=== PATIENT | female | born 1955 | race Hispanic/Latino ===

== ENCOUNTER 2016-05-28 16:57 | Observation (INO) | payer BC ==
[2016-05-28] MEDS ORDERED: Dextrose 50% SYRINGE Inj (50 ml) ONE (16:58)
[2016-05-28] MEDS ORDERED: Dextrose 50% SYRINGE Inj (50 ml) IVP STA ×2 (17:00→18:08)
--- NOTE | 2016-05-28 17:16 | ED PDOC ---
Arrival/HPI - General Time Seen by Provider: 05/28/16 16:58 Historian: EMS EM Caveat: Altered Mental Status - History of Present Illness Narrative History of Present Illness (Text): 05/28/16 16:58 A 60 year old female, whose past medical history includes hypertension and diabetes, is brought into the emergency department via EMS for altered mental status. EMS states family reported the patient appeared more confused. EMS checked to patient blood sugar at patient house and it was normal so no dextrose was given. EMS reports patient had a seizure en route to the emergency department. On arrival of the patient blood sugar was checked here and it was found to be 40 so an amp of Dextrose 50% was given. HPI and ROS limited due to patient altered mental status. There are no reported fever or other complaints. PMD: Dr. Truong Past Medical History - Provider Review Nursing Documentation Reviewed: Yes - Infectious Disease Hx of Infectious Diseases: C.diff - Tetanus Immunization Tetanus Immunization: Unknown - Cardiac Hx Cardiac Disorders: Yes Hx Hypertension: Yes - Pulmonary Hx Respiratory Disorders: No (SMOKING HISTORY HALF A PK/DAY) - Neurological Hx Neurological Disorder: No - HEENT Hx HEENT Disorder: No (WEARS RX GLASSES) - Endocrine/Metabolic Hx Endocrine Disorders: Yes Hx Diabetes Mellitus Type 2: Yes Hx Hypothyroidism: Yes - Hematological/Oncological Hx Blood Disorders: No - Musculoskeletal/Rheumatological Hx Musculoskeletal Disorders: Yes (PILONIDAL CYST REMOVED) - Gastrointestinal Hx Gastrointestinal Disorders: (PILONIDAL CYST REMOVED) - Genitourinary/Gynecological Hx Genitourinary Disorders: Yes (CAESEREAN SECTION) - Psychiatric Hx Emotional Abuse: No Hx Physical Abuse: No Hx Substance Use: No - Surgical History Hx Section: Yes (still born) - Anesthesia Hx Anesthesia Reactions: No Hx Malignant Hyperthermia: No - Suicidal Assessment Feels Threatened In Home Enviroment: No Family/Social History - Physician Review Nursing Documentation Reviewed: Yes Family/Social History: Unknown Family HX Smoking Status: Former Smoker Hx Alcohol Use: No Hx Substance Use: No Allergies/Home Meds Allergies/Adverse Reactions: Allergies No Known Allergies Allergy (Verified 11/07/12 09:51) Home Medications: Home Meds Medication Instructions Recorded Confirmed Alprazolam 0.5 mg PO HS PRN 11/07/12 03/16/14 Carvedilol 3.125 mg PO BID 11/07/12 03/16/14 Clopidogrel Hydrogen Sulfate 75 mg PO DAILY 11/07/12 03/16/14 [Plavix] Ezetimibe/Simvastatin [Vytorin 10 1 tab PO DAILY 11/07/12 03/16/14 mg-40 mg] Insulin Pump 0 units XX DAILY 11/07/12 03/16/14 Levothyroxine [Synthroid] 125 mcg PO DAILY 11/07/12 03/16/14 Losartan [Cozaar] 25 mg PO DAILY 11/07/12 03/16/14 Pregabalin [Lyrica] 75 mg PO Q8 11/07/12 03/16/14 Sertraline HCl [Sertraline] 50 mg PO DAILY 11/07/12 03/16/14 Temazepam 30 mg PO HS 11/07/12 03/16/14 Famotidine [Pepcid] 20 mg PO DAILY 03/16/14 03/16/14 Review of Systems - Review of Systems Systems not reviewed;Unavailable: Altered Mental Status Physical Exam Vital Signs Reviewed: Yes Vital Signs Temp Pulse Resp BP Pulse Ox 05/28/16 19:01 74 18 146/55 L 100 05/28/16 17:00 97.8 F 80 18 155/95 H 94 L Temperature: Afebrile Blood Pressure: Hypertensive Pulse: Regular Respiratory Rate: Normal Appearance: Positive for: Non-Toxic Pain Distress: None Mental Status: No: Agitated, Lethargic, Comatose Finger Stick Blood Glucose: 40 Medical Decision Making ED Course and Treatment: 05/28/16 16:58 Impression: A 60 year old female with altered mental status. Differential Diagnosis include but are not limited to: hypoglycemia Plan: -- EKG -- Head CT -- Chest X-ray -- Labs -- Urinalysis -- Dextrose 50% -- Reassess and disposition Prior Visits: Notes and results from previous visits were reviewed. The patient last presented to the emergency department on 03/16/14 for evaluation of hypoglycemia. Progress Notes: EKG: Ordered, reviewed, and independently interpreted the EKG. Rate : 78 BPM Rhythm : NSR Interpretation : No ST/T changes, normal axis, normal intervals. 05/28/16 17:[address]: Creator : Jass Bell MD COMPARISON: None available. FINDINGS: HEMORRHAGE: No intracranial hemorrhage. BRAIN: No mass effect or edema. No atrophy or chronic microvascular ischemic changes. VENTRICLES: Unremarkable. No hydrocephalus. CALVARIUM: Unremarkable. PARANASAL SINUSES: Unremarkable as visualized. No significant inflammatory changes. MASTOID AIR CELLS: Unremarkable as visualized. No inflammatory changes. OTHER FINDINGS: None. IMPRESSION: Normal CT of the Head. 05/28/16 18:15 Patient with persistent hypoglycemia, put on a drip. Case discussed with Dr. Truong who accepts patient to his service. 05/28/16 19:23 pt with persistent hypoglycemia, initial bgm 40, repeat 55 s/p initial dextrose. repeat dextrose given,d5 initiated. - Lab Interpretations Lab Results: 05/28/16 17:00 05/28/16 17:00 Lab Results 05/28/16 17:00: WBC 11.9 H D, RBC 4.63, Hgb 12.8, Hct 38.4, MCV 82.9, MCH 27.6, MCHC 33.3, RDW 15.0 H, Plt Count 386, MPV 9.9, Neutrophils % (Manual) 31 L, Lymphocytes % (Manual) 47 H, Atypical Lymphs % 6 H, Monocytes % (Manual) 13 H, Eosinophils % (Manual) 1, Basophils % (Manual) 2 H, PT 10.4, INR 0.96, APTT 29.7 , Sodium 135, Potassium 3.4 L, Chloride 99, Carbon Dioxide 20 L, Anion Gap 19, BUN 9, Creatinine 0.7, Est GFR ( Amer) > 60, Est GFR (Non-Af Amer) > 60, Random Glucose 41 L* D, Calcium 8.9, Magnesium 1.9, Total Bilirubin 0.4, AST 22 , ALT 24, Alkaline Phosphatase 107, Lactate Dehydrogenase 525, Total Creatine Kinase 104, Troponin I < 0.01, Total Protein 8.4 H, Albumin 4.5, Globulin 3.9, Albumin/Globulin Ratio 1.2 I have reviewed the lab results: Yes - RAD Interpretation Radiology Orders: 05/28/16 17:00 HEAD W/O CONTRAST [CT] Stat CHEST ONE VIEW [RAD] Stat - Medication Orders Current Medication Orders: Albuterol/Ipratropium (Duoneb 3 Mg/0.5 Mg (3 Ml) Ud) 3 ml IH [id number] PRN PRN Reason: Shortness of Breath Alprazolam (Xanax) 0.5 mg PO HS PRN PRN Reason: Anxiety Carvedilol (Coreg) 3.125 mg PO BID ERIKA Clopidogrel Bisulfate (Plavix) 75 mg PO DAILY ERIKA Famotidine (Pepcid) 20 mg PO DAILY ERIKA Dextrose/Sodium Chloride (Dextrose 5%/0.45% Ns 1000 Ml) 1,000 mls @ 125 mls/hr IV .Q8H [facility] Last Admin: 05/28/16 18:30 Dose: 125 MLS/HR eMAR Start Stop Document 05/28/16 18:30 SZA (Rec: 05/28/16 18:31 [id number]) Intravenous Solution Start Date 05/28/16 Start Time 18:30 Ceftriaxone Sodium (Rocephin 1 Gram Ivpb) 100 mls @ 100 mls/hr IVPB DAILY ERIKA PRN Reason: Protocol Last Admin: 05/28/16 20:24 Dose: 100 MLS/HR eMAR Start Stop Document 05/28/16 20:24 YP (Rec: 05/28/16 20:24 YP [id number]) Intravenous Solution Start Date 05/28/16 Start Time 20:24 End Date 05/28/16 End time 21:24 Total Infusion Time 60 Insulin Human Lispro (Humalog Low) 0 units SC ACHS ERIKA PRN Reason: Protocol Levothyroxine Sodium (Synthroid) 125 mcg PO ACB ERIKA Losartan Potassium (Cozaar) 25 mg PO DAILY ERIKA Ezetimibe/Simvastatin [Vytorin 10 Mg-40 Mg] 1 Tab) 1 tab PO DAILY ERIKA Temazepam [Temazepam (] 30 Mg) 30 mg PO HS ERIKA Potassium Chloride (Potassium Chloride Oral Soln) 40 meq PO Q4H ERIKA Stop: 05/29/16 00:31 Last Admin: 05/28/16 20:48 Dose: 40 MEQ Pregabalin (Lyrica) 75 mg PO Q8 ERIKA Sertraline HCl (Zoloft) 50 mg PO DAILY ERIKA Discontinued Medications Dextrose (Dextrose 50% Inj) 50 ml IVP STAT STA Stop: 05/28/16 17:01 Last Admin: 05/28/16 17:11 Dose: 50 ML IVP Administration Document 05/28/16 17:11 JOJer (Rec: 05/28/16 17:11 JOL [id number]) Charges for Administration # of IVP Administrations 1 Dextrose (Dextrose 50% Inj) 50 ml IVP STAT STA Stop: 05/28/16 18:09 Last Admin: 05/28/16 18:15 Dose: 50 ML IVP Administration Document 05/28/16 18:15 JOL (Rec: 05/28/16 18:15 JOL [id number]) Charges for Administration # of IVP Administrations 1 Ondansetron HCl (Zofran Inj) 4 mg IVP ONCE ONE Stop: 05/28/16 17:22 Last Admin: 05/28/16 18:15 Dose: 4 MG IVP Administration Document 05/28/16 18:15 JOL (Rec: 05/28/16 18:15 JOL [id number]) Charges for Administration # of IVP Administrations 1 - Scribe Statement The provider has reviewed the documentation as recorded by the Eliibpaul Zhong Provider Scribe Attestation: All medical record entries made by the Scribe were at my direction and personally dictated by me. I have reviewed the chart and agree that the record accurately reflects my personal performance of the history, physical exam, medical decision making, and the department course for this patient. I have also personally directed, reviewed, and agree with the discharge instructions and disposition. Disposition/Present on Arrival - Present on Arrival Any Indicators Present on Arrival: No History of DVT/PE: No History of Uncontrolled Diabetes: No Urinary Catheter: No History Surgical Site Infection Following: None - Disposition Have Diagnosis and Disposition been Completed?: Yes Diagnosis: Hypoglycemia Disposition: HOSPITALIZED Disposition Time: 18:53 Patient Problems: Current Active Problems Problem Status Diagnosed Hypoglycemia Acute Condition: FAIR
[2016-05-28 17:17] LABS: HEMATOCRIT 38.4 % (36.0-48.0); MEAN CELL VOLUME 82.9 fL (80.0-105.0); MEAN CORPUSCULAR HEMOGLOBIN 27.6 pg (25.0-35.0); MEAN CORPUSCULAR HGB CONC 33.3 g/dl (31.0-37.0); MEAN PLATELET VOLUME 9.9 fl (7.0-11.0); PLATELET COUNT 386 10^3/uL (120.0-450.0); WHITE BLOOD COUNT 11.9 10^3/ul (4.5-11.0)
[2016-05-28 17:28] LABS: ALB/GLOB RATIO 1.2 (1.1-1.8); ALKALINE PHOSPHATASE 107 U/L (38-133); ALT/SGPT 24 U/L (7-56); AST/SGOT 22 U/L (15-39); BILIRUBIN,TOTAL 0.4 mg/dL (0.2-1.3); BLOOD UREA NITROGEN 9 mg/dL (7-21); CALCIUM 8.9 mg/dL (8.4-10.5); CARBON DIOXIDE 20 mmol/L (21-33); CHLORIDE 99 mmol/L (98-107); GFR AFRICAN-AMERICAN > 60; MAGNESIUM 1.9 mg/dL (1.7-2.2); POTASSIUM 3.4 mmol/L (3.6-5.0); SODIUM 135 mmol/L (132-148); TOTAL PROTEIN 8.4 g/dL (5.8-8.3)
[2016-05-28 17:30] LABS: ADD MANUAL DIFF? YES
[2016-05-28 17:32] LABS: GLUCOSE,RANDOM 41 mg/dL (70-110)
--- NOTE | 2016-05-28 17:33 | CT ---
PROCEDURE: CT HEAD WITHOUT CONTRAST. HISTORY: hemphill COMPARISON: None available. TECHNIQUE: Axial computed tomography images were obtained through the head/brain without intravenous contrast. Radiation dose: Total exam DLP = 1548 mGy-cm. This CT exam was performed using one or more of the following dose reduction techniques: Automated exposure control, adjustment of the mA and/or kV according to patient size, and/or use of iterative reconstruction technique. FINDINGS: HEMORRHAGE: No intracranial hemorrhage. BRAIN: No mass effect or edema. No atrophy or chronic microvascular ischemic changes. VENTRICLES: Unremarkable. No hydrocephalus. CALVARIUM: Unremarkable. PARANASAL SINUSES: Unremarkable as visualized. No significant inflammatory changes. MASTOID AIR CELLS: Unremarkable as visualized. No inflammatory changes. OTHER FINDINGS: None. IMPRESSION: Normal CT of the Head.
[2016-05-28 17:36] LABS: INR 0.96 (0.93-1.08); PARTIAL THROMBOPLASTIN TIME 29.7 Seconds (23.7-30.8)
[2016-05-28 17:42] LABS: TROPONIN I < 0.01 ng/mL
[2016-05-28 17:57] LABS: ATYPICAL LYMPHOCYTE 6 % (0.0-0.0); BASOPHIL 2 % (0.0-1.0); EOSINOPHIL 1 % (0.0-3.0); NEUTROPHIL 31 % (50.0-70.0)
[2016-05-28] MEDS: Dextrose 5%/0.45% NS 1,000 ML IV SCH (18:30)
[2016-05-28] MEDS ORDERED: ALPRAZOLAM 0.5 MG PO PRN (19:23)
[2016-05-28] MEDS ORDERED: Albuterol-Ipratrop 3 mg / 0.5 (3 ml) UD IH PRN (19:32)
[2016-05-28] MEDS: cefTRIAXone 1 gm 100 ML IVPB SCH (20:24)
[2016-05-28] MEDS: Potassium Chloride 40 mEq/30 ml LIQ UD PO SCH (20:48)
--- NOTE | 2016-05-28 22:14 | CON ---
DATE: 05/28/2016 Seen in ER holding and she is awaiting a bed in telemetry. HISTORY OF PRESENT ILLNESS: This is a 60-year-old female, very well known to me from outpatient diab etic followup, who presents here with altered mental status and agitation and confusion with a concom itant markedly low glucose value of 40 mg/dL. Moreover, she also had a witnessed seizure event on th e way to the Emergency Room. She has known history of type 1 insulin-dependent diabetes since o and has been on a [employer] insulin pump for over 10 years or so with very poor metabolic control and A1c levels have ranged from 9%-11% despite the [employer] insulin pump. She was briefly switched over to a trial of multiple daily injections over the past month prior to admission. PAST MEDICAL HISTORY: As mentioned above, history of type 1 insulin-dependent diabetes, previously o n a Medtronic insulin pump giving continuously basal insulin with bolus injections given for her meal time requirements. As mentioned, she has been switched over temporarily, per the patient's insisten ce, to multiple daily injections in the last month or so and was using a combination of Humalog given as 12 units a.c. breakfast, 14 units a.c. lunch and 20 units a.c. dinner. She was also given bas al insulin with Toujeo ago given as 20 units subQ at bedtime daily. History of diabetic retinopathy and polyneuropathy with no evidence so far of diabetic nephropathy nor proteinuria. Moreover, she al so has hypertensive cardiovascular disease and dyslipidemia, but apparently has normal coronaries fro m her previous nuclear stress testing undertaken. Hypothyroidism related to autoimmune thyroiditis a nd has been clinically and biochemically euthyroid on levothyroxine given as 125 mcg daily. She also has history of osteoporosis and is currently on Boniva, given as 150 mg once a month as ordered. FAMILY HISTORY: Positive for diabetes and hypertension. SOCIAL HISTORY: The patient works at the [employer] and has a very supportive . She had 1 stillbirth and no children. Moreover, she also admits to longstanding nicotine dependence cons uming 1-2 packs a day for over 30 years. REVIEW OF SYSTEMS: Review of systems not possible at this time, but was provided queries and the ans wers were provided by the . She was noted to have increased generalized body weakness with hy persomnolence, worse in the last day or so prior to admission. Also, admits to recent bouts of dizzi ness and lightheadedness with easy fatigability and tiredness and suboptimal energy level. No chest pains or palpitations or PNDs. Her oral intake has been variable and suboptimal, especially in the l ast week or so prior to admission with nausea and dyspepsia. No recent alterations of bowel or urina ry patterns. PHYSICAL EXAMINATION: GENERAL: An average built female in no apparent distress. VITAL SIGNS: Blood pressure of 150/90, pulse of 70 beats per minute and regular, temperature 98, res pirations 20. Height is 5 feet 5 inches and weight is 180 pounds. HEENT: Head normocephalic. Eyes anicteric with pink conjunctivae. Fundoscopy not possible at this time. Ears, nose and throat otherwise normal. NECK: Supple. Thyroid gland is normal size. No carotid bruits or any cervical adenopathy. CARDIOPULMONARY: Some adynamic precordium. S1, S2 is rapid and regular. LUNGS: Show scattered rhonchi. ABDOMEN: Flat, soft with positive bowel sounds. EXTREMITIES: No peripheral edema. Pulses are +2 bilaterally. LABORATORY DATA: The initial chemistries showed a BUN of 9, sodium 135, potassium 3.4, chloride 99, CO2 20, glucose 41, and creatinine 0.7. The repeat glucose at the Emergency Room was [address] one now is 134. ASSESSMENT: This is a 60-year-old female with uncontrolled and decompensated type 1 insulin-dependen t diabetes, presenting here with symptomatic hypoglycemia and associated neuroglycopenic and hyperadr energic manifestations related to the aforementioned. She had a brief bout of unresponsiveness as pe r the hospital with supervening lethargy, confusion, disorientation and marked agitation and restless ness with supervening witnessed, generalized seizures enroute to the hospital. She also has diabetic microvascular complications of retinopathy and polyneuropathy. PLAN OF MANAGEMENT: As discussed with the resident, we will intensify the glucose monitoring and do fingersticks every 4 hours overnight and observe her glycemic fluctuations thereof and because she is a type 1 diabetic with no insulin reserve, would order a very low dose algorithm using Humalog insul in to cover supervening and expected hyperglycemic accelerations especially that she is on dextrose i nfusion at this time. We will obtain a hemoglobin A1c to confirm her prior glycemic control and base line thyroid function studies will be ordered and we will adjust her levothyroxine dose accordingly. We will obtain lipid panel and also serial chemistries and will supplement accordingly as needed. Zakia miller will continue the dextrose infusion and once the glucose levels remain persistently above 140-180 t hen we will switch her over to half normal saline as indicated. We will reinforce diabetic education and dietary instructions and actually consult our diabetic nurse educator for the aforementioned. Zakia miller will also consult our dietitian for nutritional evaluation and healthier food choices, especially i n the light of consistent meals being on a basal and bolus insulin drug combination. As her oral int jhon improves and as she improves clinically and biochemically, then we will start her back on a more physiologic basal and bolus insulin drug combination with Levemir given at bedtime and Humalog given for each meal as indicated. We will follow and advise accordingly. Frances Olguin MD cc: [id number] TT: 05/28/2016 22:13:10 Confirmation # [id number] Dictation # [id number]
[2016-05-28] MEDS: Insulin Lispro (humaLOG) LOW Coverage SC SCH (22:33)
[2016-05-28] MEDS: TEMAZEPAM 30 MG PO SCH (22:34)
[2016-05-28 23:25] VITALS: BMI 33.6
--- NOTE | 2016-05-29 00:04 | CP.PCM.HP ---
<DarrynOllie - Last Filed: 05/29/16 00:00> History of Present Illness - History of Present Illness History of Present Illness: Ollie Cates D.O. PGY-1, Internal Medicine Resident, Night Float Admission Note CC: low blood sugar today 60 year old female with a PMH of uncontrolled DM type 1, HTN, hyperlipidemia, insomnia, diabetic neuropathy, and anxiety who presents to [facility] on 05/28/16 with complaints of low blood sugar and possible seizure. Patient is accompanied by her who provided most of the history. Per , patient arrived home a few hours ago and he heard her getting out of the car, but then he heard a commotion that was her stumbling into their gate. He went outside to check on her and she was "out of it" and "kept asking the same questions over and over again." Patient has no recollection of this event. check her blood sugar and states that it was 40 and so he gave her some orange juice and he already knows what to do in these events but she did not get better so he called the paramedics. In the ambulance states that the patient had a seizure, was out of it, with shaking of her extremities. Unable to determine if there was urinary incontinence as patient already wears briefs due to baseline incontinence with coughing. Patient denies fecal incontinence or tongue biting but notes that she was "foaming at the mouth a bit." Event lasted a few minutes while en route. Otherwise patient has not had any new issues but does have a "chronic cough." notes that he has not seen the patient using her insulin pump but she states that this is what she uses. has seen her with it before and states that sometimes in the past he has gotten up early in the morning to check her sugars and has had to give her juice before to bring her sugars up. PMD: Dr. Dionne Wilson PMH: as above PSH: x1 SH: smokes 2ppd x "almost 50 years" for 100 pack years, denies drinking, denies drug use, lives with retired FH: denied Meds: reviewed with [facility] Allergies: only seasonal Present on Admission - Present on Admission Any Indicators Present on Admission: Yes History of Uncontrolled Diabetes: Yes Review of Systems - Constitutional Constitutional: absent: Anorexia, Chills, Night Sweats - EENT Eyes: absent: Blind Spots, Blurred Vision Ears: absent: Decreased Hearing, Ear Discharge Nose/Mouth/Throat: absent: Epistaxis, Nasal Congestion - Cardiovascular Cardiovascular: absent: Chest Pain, Diaphoresis - Respiratory Respiratory: Cough. absent: Dyspnea, Hemoptysis - Gastrointestinal Gastrointestinal: absent: Abdominal Pain, Nausea, Vomiting - Genitourinary Genitourinary: absent: Dysuria, Hematuria - Musculoskeletal Musculoskeletal: absent: Neck Pain, Numbness - Integumentary Integumentary: absent: Pruritus, Rash - Neurological Neurological: Confusion, Convulsions. absent: Headaches Past Patient History - Infectious Disease Hx of Infectious Diseases: C.diff - Tetanus Immunizations Tetanus Immunization: Unknown - Past Social History Smoking Status: Heavy Smoker > 10 Cigarettes Daily - CARDIAC Hx Cardiac Disorders: Yes Hx Angina: No Hx Cardia Arrhythmia: No Hx Circulatory Problems: No Hx Congestive Heart Failure: No Hx Heart Murmur: No Hx Heart Transplant: No Hx Hypercholesterolemia: Yes Hx Hypertension: Yes Hx Internal Defibrillator: No Hx Mitral Valve Prolapse: No Hx Pacemaker: No Hx Peripheral Edema: No Hx Peripheral Vascular Disease: No - PULMONARY Hx Respiratory Disorders: Yes (Smokes 1 pack cigarettes /day) Hx Asthma: No Hx Bronchitis: No Hx Chronic Obstructive Pulmonary Disease (COPD): No Hx Emphysema: No Hx Pneumonia: No Hx Respiratory Aspiration: No Hx Respiratory Tract Infection: No Hx Sleep Apnea: No Hx Tuberculosis: No - NEUROLOGICAL Hx Neurological Disorder: Yes Hx Alzheimer's Disease: No HX Cerebrovascular Accident: Yes Hx Dementia: No Hx Dizziness: No Hx Meningitis: No Hx Migraine: No Hx Parkinson's Disease: No Hx Seizures: No Hx Transient Ischemic Attacks (TIA): No - HEENT Hx HEENT Problems: No Hx Blind: No Hx Cataracts: No Hx Deafness: No Hx Difficulty Chewing: No Hx Epistaxis: No Hx Glaucoma: No Hx Macular Degeneration: No - RENAL Hx Chronic Kidney Disease: No Hx Dialysis: No Hx Kidney Stones: No Hx Neurogenic Bladder: No Hx Pyelonephritis: No Hx Renal (Kidney) Cancer: No Hx Renal Failure: No - ENDOCRINE/METABOLIC Hx Endocrine Disorders: Yes Hx Adrenal Cancer: No Hx Diabetes Insipidus: No Hx Diabetes Mellitus Type 1: No Hx Diabetes Mellitus Type 2: Yes Hx Hyperthyroidism: No Hx Hypothyroidism: Yes Hx Systemic Lupus Erythematosus: No - HEMATOLOGICAL/ONCOLOGICAL Hx Blood Disorders: No Hx AIDS: No Hx Anemia: No Hx Cancer: No Hx Chemotherapy: No Hx Cirrhosis: No Hx Hemophilia: No Hx Hepatitis A: No Hx Hepatitis B: No Hx Hepatitis C: No Hx Human Immunodeficiency Virus (HIV): No Hx Metastesis: No Hx Shingles: No Hx Sickle Cell Disease: No Hx Unexplained Bleeding: No - INTEGUMENTARY Hx Dermatological Problems: Yes Hx Basil Cell: Yes (back and thigh) Hx Eczema: No Hx Melanoma: No Hx Psoriasis: No Hx Squamous Cell: No - MUSCULOSKELETAL/RHEUMATOLOGICAL Hx Musculoskeletal Disorders: Yes Hx Arthritis: Yes Hx Back Pain: No Hx Degenerative Joint Disease: No Hx Falls: No Hx Fractures: No Hx Gout: No Hx Herniated Disk: No Hx Myasthenia Gravis: No Hx Osteoarthritis: No Hx Osteomyelitis: Yes Hx Osteoporosis: No Hx Rhabdomyolysis: No Hx Spinal Stenosis: No Hx Unsteady Gait: No - GASTROINTESTINAL Hx Gastrointestinal Disorders: Yes Hx Colostomy: No Hx Crohn's Disease: No Hx Diverticulitis: No Hx Gall Bladder Disease: No Hx Gastroesophageal Reflux: Yes Hx Ileostomy: No Hx Liver Failure: No Hx Pancreatitis: No HX Swallowing Problems: No Hx Ulcer: No - GENITOURINARY/GYNECOLOGICAL Hx Genitourinary Disorders: Yes Hx Hematuria: No Hx Incontinence: Yes Hx Sexually Transmitted Disorders: No Hx Urinary Tract Infection: No - PSYCHIATRIC Hx Psychophysiologic Disorder: Yes Hx Anxiety: Yes Hx Bipolar Disorder: No Hx Depression: Yes Hx Emotional Abuse: No Hx Hallucinations: No Hx Panic Symptoms: No Hx Paranoia: No Hx Post Traumatic Stress Disorder: No Hx Psychosis: No Hx Physical Abuse: No Hx Schizophrenia: No Hx Sexual Abuse: No Hx Substance Use: No - SURGICAL HISTORY Hx Surgeries: Yes (basal cancer removed and c- section) Hx Amputation: No Hx Appendectomy: No Hx Cardiac Catheterization: No Hx Cholecystectomy: No Hx Coronary Stent: No Hx Gastric Bypass Surgery: No Hx Hysterectomy: No Hx Joint Replacement: No Hx Kidney Transplant: No Hx Liver Transplant: No Hx Mastectomy: No Hx Musculoskeletal Surgery: No Hx Open Heart Surgery: No Hx Orthopedic Surgery: No Hx Splenectomy: No Hx Valve Replacement: No - ANESTHESIA Hx Anesthesia Reactions: No Hx Malignant Hyperthermia: No Meds Allergies/Adverse Reactions: Allergies Allergy/AdvReac Type Severity Reaction Status Date / Time No Known Allergies Allergy Verified 11/07/12 09:51 Physical Exam - Constitutional Additional comments: well developed, obese, confused female, appears older than stated age - Head Exam Head Exam: ATRAUMATIC, NORMOCEPHALIC - Eye Exam Eye Exam: EOMI, PERRL. absent: Conjunctival injection, Scleral icterus - ENT Exam Additional comments: oropharynx is pink and dry - Neck Exam Additional comments: soft, supple - Respiratory Exam Respiratory Exam: Clear to Auscultation Bilateral, Rhonchi (RLL). absent: Rales , Wheezes - Cardiovascular Exam Cardiovascular Exam: RRR, +S1, +S2, Systolic Murmur (2/6 left sternal border). absent: Gallop, Rubs - GI/Abdominal Exam GI & Abdominal Exam: Normal Bowel Sounds, Soft. absent: Distended, Tenderness Additional comments: small seborrheic dermatitis on lower abdomen - Extremities Exam Extremities exam: Positive for: normal capillary refill. Negative for: calf tenderness, pedal edema, tenderness - Neurological Exam Additional comments: AAOx3 (person, place, situation, but not time), CN 2-12 grossly intact, repeats herself multiple times, ALLEN - Skin Skin Exam: Dry, Intact Results - Vital Signs Recent Vital Signs: Last Vital Signs Temp 98.1 F 05/28/16 23:08 Pulse 80 05/28/16 23:08 Resp 20 05/28/16 23:08 BP 129/82 05/28/16 23:08 Pulse Ox 96 05/28/16 21:15 - Labs Result Diagrams: 05/28/16 17:00 05/28/16 17:00 Labs: Laboratory Results - last 24 hr 05/28/16 05/28/16 19:20 21:54 POC Glucose (mg/dL) 134 H 165 H Assessment & Plan - Assessment and Plan (Free Text) Assessment: 60 year old female with a PMH of uncontrolled DM type 1, HTN, hyperlipidemia, insomnia, diabetic neuropathy, and anxiety who presents with complaints of low blood sugar and possible seizure. Plan: 1.Hypoglycemic episode in setting of uncontrolled type 1 diabetes mellitus Likely 2/2 uncontrolled DM type 1 Placed in obs in tele Vitals q4h Accuechecks q4h Consulted endo Dr. Olguin, spoke with her and she confirms that patient is on pump , noncompliant Humalog low sliding scale adjusted per Dr. Olguin recs HOB 30 Mod fall precautions HgbA1C 2. Witnessed seizure Likely hypoglycemic in etiology Consulted neuro Dr. Thomas Head CT scan and official report reviewed by myself, there is a lot of movement and artifact but there is no acute fracture, bleed, or abnormalities Seizure precautions 3. Leukocytosis with cough in the setting of COPD CXR reviewed by myself, there appears to be an infiltrate forming in the RLL consistent with rhonchi on physical exam, suspected infectious etiology given her history Blood cultures drawn Repeat CBC in the am Started on ceftriaxone 1g qd PRN duonebs placed 4. Hypothyroidism Continue levothyroxine Thyroid panel pending 5. Diabetic neuropathy Continue lyrica 6. Hyperlipidemia Continue vytorin 7. Insomnia Continue temazepam and alprazoma 8. Anxiety Continue sertraline Patient was seen and examined at bedside and case was discussed at length with attending physician. - Date & Time Date: 05/29/16 Time: 00:03 <Shawn Mayfield - Last Filed: 06/22/16 09:32> Results - Vital Signs Recent Vital Signs: Last Vital Signs Temp 98.3 F 05/30/16 05:55 Pulse 88 05/30/16 09:15 Resp 18 05/30/16 09:00 BP 149/70 05/30/16 09:15 Pulse Ox 96 05/30/16 09:00 - Labs Result Diagrams: 05/30/16 06:30 05/30/16 06:30 Attending/Attestation - Attestation I have personally seen and examined this patient.: Yes I have fully participated in the care of the patient.: Yes I have reviewed all pertinent clinical information: Yes Notes (Text): 06/22/16 09:32 Medical record note made by the resident after discussion with my direction and input after the patient was personally seen and examined by me. I have reviewed the chart and agree that the record accurately reflects by personal performance of the history, physical exam, data review, and medical decision-making, in the course for the patient. I have also personally directed the plan of care.
[2016-05-29] MEDS: Potassium Chloride 40 mEq/30 ml LIQ UD PO SCH (00:08)
[2016-05-29] MEDS: Dextrose 5%/0.45% NS 1,000 ML IV SCH ×2 (03:17→12:39)
[2016-05-29 07:40] LABS: ADD MANUAL DIFF? NO
[2016-05-29 07:46] LABS: BASO # 0.07 K/mm3 (0.0-2.0); BASO % 0.8 % (0.0-3.0); EOS # 0.1 (0.0-0.7); EOS % 1.1 % (1.5-5.0); GRAN # 6.02 (1.4-6.5); GRAN % 71.8 % (50.0-68.0); HEMATOCRIT 36.3 % (36.0-48.0); LYMPH # 1.4 (1.2-3.4); LYMPH % 16.8 % (22.0-35.0); MEAN CELL VOLUME 82.3 fL (80.0-105.0); MEAN CORPUSCULAR HEMOGLOBIN 26.8 pg (25.0-35.0); MEAN CORPUSCULAR HGB CONC 32.5 g/dl (31.0-37.0); MEAN PLATELET VOLUME 10.5 fl (7.0-11.0); MONO # 0.8 (0.1-0.6); MONO % 9.5 % (1.0-6.0); PLATELET COUNT 316 10^3/uL (120.0-450.0); RED CELL DISTRIBUTION WIDTH 15.2 % (11.5-14.5); WHITE BLOOD COUNT 8.4 10^3/ul (4.5-11.0)
[2016-05-29 08:03] LABS: ALKALINE PHOSPHATASE 101 U/L (38-133); ALT/SGPT 29 U/L (7-56); AST/SGOT 26 U/L (15-39); BILIRUBIN,TOTAL 0.5 mg/dL (0.2-1.3); BLOOD UREA NITROGEN 6 mg/dL (7-21); CALCIUM 8.2 mg/dL (8.4-10.5); CARBON DIOXIDE 26 mmol/L (21-33); CHLORIDE 103 mmol/L (98-107); CHOLESTEROL 133 mg/dL (130-200); GFR AFRICAN-AMERICAN > 60; GLUCOSE,RANDOM 260 mg/dL (70-110); POTASSIUM 4.4 mmol/L (3.6-5.0); SODIUM 135 mmol/L (132-148); TOTAL PROTEIN 7.3 g/dL (5.8-8.3)
[2016-05-29 08:20] LABS: T4 7.9 ug/dL (5.5-11.0)
[2016-05-29 08:34] LABS: THYROID STIMULATING HORMONE 1.88 mIU/mL (0.46-4.68)
[2016-05-29] MEDS: Insulin Lispro (humaLOG) LOW Coverage SC SCH ×4 (08:44→23:09)
[2016-05-29] MEDS: Levothyroxine 125 MCG TAB PO SCH (08:45)
--- NOTE | 2016-05-29 08:51 | RAD ---
PROCEDURE: CHEST RADIOGRAPH, 1 VIEW HISTORY: Weakness COMPARISON: 06/09/2014. FINDINGS: LUNGS: The lungs are well inflated and clear PLEURA: No pneumothorax or pleural fluid seen. CARDIOVASCULAR: Normal. OSSEOUS STRUCTURES: No significant abnormalities. VISUALIZED UPPER ABDOMEN: Normal. OTHER FINDINGS: None. IMPRESSION: No active pulmonary disease.
--- NOTE | 2016-05-29 09:20 | CARD ---
APPROVED REPORT EKG Measurement Heart [id number] <Conclusion> Normal sinus rhythm RVCD Indeterminate axis NSSTW changes No change
[2016-05-29] MEDS: cefTRIAXone 1 gm 100 ML IVPB SCH (09:32)
[2016-05-29] MEDS: SIMVASTATIN PO SCH (09:59)
[2016-05-29] MEDS: EZETIMIBE PO SCH (09:59)
[2016-05-29] MEDS ORDERED: Levothyroxine 112 MCG TAB PO SCH (10:00)
[2016-05-29] MEDS ORDERED: [UNRECOGNIZED DRUG - OTHER] PO SCH (10:00)
[2016-05-29 11:52] LABS: CORTISOL AM 14.1 ug/dL (4.46-22.7)
[2016-05-29] MEDS ORDERED: Sodium Chloride 0.45% 1,000 ML IV SCH ×2 (15:00→15:42)
[2016-05-29] MEDS ORDERED: Sodium Chloride 0.45% 500 ML IV SCH (15:24)
[2016-05-29] MEDS: Insulin Lispro 1 UNITS/0.01 ML SC SCH (17:27)
--- NOTE | 2016-05-29 18:03 | CON ---
DATE: 05/29/2016 CHIEF COMPLAINT: Altered mental status, questionable seizure. HISTORY OF PRESENT ILLNESS: This is a 60-year-old woman with past medical history of uncontrolled ty pe 1 diabetes, hypertension, hyperlipidemia, insomnia, diabetic neuropathy, anxiety who presented to the ER on 05/28/2016 with low blood sugar of 41 with a questionable seizure where she was foaming at the mouth, but no bowel or bladder incontinence. Event lasted about a few minutes while en route. C urrently, she does not recall the event. She is sitting up at the edge of the bed drinking coffee, m oving all extremities. She has chronic tingling and numbness in her extremities from underlying diab etic peripheral neuropathy and has underlying carpal tunnel in both hands. She sees Dr. Carlos cartwright as her neurologist as an outpatient. Currently, her A1c is 10.3, indicating poorly controlled di abetes, endocrinology, Dr. Rico is on board. Note reviewed and appreciated. Currently, she is moving all extremities and is not confused. She is on Plavix for stroke prevention. She is on Zoloft 50 m g p.o. daily for underlying depression and levothyroxine 125 mcg p.o. daily for hypothyroidism. No a cute events overnight. Following commands, moving all extremities. PAST MEDICAL HISTORY: Type 1 diabetic, uncontrolled, diabetic peripheral neuropathy, hypertension, c arpal tunnel syndrome, insomnia, anxiety, hyperlipidemia, hypertension. REVIEW OF SYSTEMS: A 14-point review of systems is negative except for the HPI. ALLERGIES: No known drug allergies. FAMILY HISTORY: Noncontributory. MEDICATIONS: Reviewed via nurse's reconciliation sheet. SOCIAL HISTORY: No illicit drug use, smoking, or ETOH abuse at this time. Used to smoke 2 packs per day for almost 50 years. Denies any illicit drug use or ETOH abuse. FAMILY HISTORY: Noncontributory. PHYSICAL EXAMINATION: VITAL SIGNS: Temperature 97.5, pulse rate of 90, blood pressure 113/49, respiratory rate 20, oxygen saturation 95% on room air. GENERAL: The patient is sitting up in bed in no acute distress. HEENT: Atraumatic, normocephalic. PERRLA. Extraocular muscles intact. NECK: Supple, no JVD, no adenopathy noted. LUNGS: Clear to auscultation. No adventitious sounds. HEART: S1, S2, normal rate and rhythm. No murmurs, rubs, or gallops. ABDOMEN: Soft, nontender, nondistended. Bowel sounds are present. EXTREMITIES: No clubbing, no cyanosis. Peripheral pulses 2+ felt bilaterally. NEUROLOGIC: The patient is alert, oriented to person, place, month and year. Speech is fluent, with out any errors. Poor attention span. Slowed thought process. Cranial nerves II through XII intact. MOTOR EXAM: Moves all extremities equally. No pronator drift seen. SENSORY: Decreased light touch and pinprick up to calves bilaterally. Decreased vibration of the to es. DTRs are 2+ throughout in the upper extremities, 1 at the knees, and absent at the ankles. COORDINATION: [id number] intact. GAIT: Deferred for now. LABORATORIES: Sodium is 135, potassium 4.4, chloride of 103, carbon dioxide 26, BUN of 6, creatinine 0.6, random glucose 260, A1c is 10.3. ASSESSMENT AND PLAN: This is a 60-year-old woman with history of type 1 diabetes, poorly controlled with a recent A1c of 10.3, hypertension, hyperlipidemia, insomnia, diabetic peripheral neuropathy, an xiety, carpal tunnel syndrome who came with a questionable confusion with foaming of the mouth with q uestionable provoked seizure secondary to hypoglycemia, blood sugar of 41. Currently, she is back to her baseline. This is a provoked seizure; therefore, we will avoid adding any antiepileptic drugs a t this time. RECOMMEND: 1. Keep her blood sugar between 140-180. 2. [address]. Frances Olguin's recommendations regarding management for the diabetes, diabetic education given. 3. Smoking sensation advised to the patient. 4. Continue with Plavix for stroke prevention 75 mg p.o. daily. 5. Follow up with her neurologist, Dr. Layne, for underlying management of underlying diabetic per ipheral neuropathy. At this time, she is clinically stable from my standpoint. We will sign off. Thony Thomas MD cc: [id number] TT: 05/29/2016 18:02:39 Confirmation # [id number] Dictation # [id number]
[2016-05-29] MEDS ORDERED: Insulin Detemir 100 units/ml Vial (Levemir) SC SCH (22:00)
[2016-05-29] MEDS: TEMAZEPAM 30 MG PO SCH ×2 (22:30→23:10)
[2016-05-30 05:56] VITALS: TEMP 98.3
[2016-05-30] MEDS: Insulin Lispro (humaLOG) LOW Coverage SC SCH (07:35)
[2016-05-30 07:47] LABS: ADD MANUAL DIFF? NO
[2016-05-30] MEDS: Levothyroxine 125 MCG TAB PO SCH (07:48)
[2016-05-30] MEDS: Insulin Lispro 1 UNITS/0.01 ML SC SCH (07:48)
[2016-05-30 07:56] LABS: BASO # 0.04 K/mm3 (0.0-2.0); BASO % 0.6 % (0.0-3.0); EOS # 0.2 (0.0-0.7); EOS % 2.8 % (1.5-5.0); GRAN # 5.09 (1.4-6.5); GRAN % 72.4 % (50.0-68.0); HEMATOCRIT 36.1 % (36.0-48.0); LYMPH # 0.8 (1.2-3.4); LYMPH % 11.8 % (22.0-35.0); MEAN CELL VOLUME 82.2 fL (80.0-105.0); MEAN CORPUSCULAR HEMOGLOBIN 26.9 pg (25.0-35.0); MEAN CORPUSCULAR HGB CONC 32.7 g/dl (31.0-37.0); MEAN PLATELET VOLUME 10.1 fl (7.0-11.0); MONO # 0.9 (0.1-0.6); MONO % 12.4 % (1.0-6.0); PLATELET COUNT 302 10^3/uL (120.0-450.0); RED CELL DISTRIBUTION WIDTH 15.4 % (11.5-14.5)
[2016-05-30 08:16] LABS: ALKALINE PHOSPHATASE 103 U/L (38-133); ALT/SGPT 26 U/L (7-56); AST/SGOT 29 U/L (15-39); BILIRUBIN,TOTAL 0.5 mg/dL (0.2-1.3); BLOOD UREA NITROGEN 5 mg/dL (7-21); CALCIUM 8.2 mg/dL (8.4-10.5); CARBON DIOXIDE 27 mmol/L (21-33); CHLORIDE 103 mmol/L (98-107); GFR AFRICAN-AMERICAN > 60; GLUCOSE,RANDOM 207 mg/dL (70-110); POTASSIUM 4.3 mmol/L (3.6-5.0); SODIUM 135 mmol/L (132-148); TOTAL PROTEIN 7.3 g/dL (5.8-8.3)
--- NOTE | 2016-05-30 08:20 | PN ---
DATE: 05/29/2016 This is a 60-year-old female with known history of type 1 insulin-dependent diabetes, recently taken off the [employer] insulin pump per the patient's request and preference after having been on the pump for over 15 years or so and was actually doing well with improved glycemic levels over the past week or so until yesterday she became hypoglycemic. Now that the patient is awake and responsive, she wa s able to give more details as to the exact circumstances of what happened. She came from [employer] [facility] [employer] mid 100 range when she was driving. When she got home, she apparently shop and memory of compensation of this She is empirically and biochemically thi s time. This is a 60-year-old female with type I insulin-dependent diabetes mellitus outpatient t o admission. She also has diabetic microvascular complications of retinopathy and polyneuropathy. S he surprisingly has no renal function . Current management of this patient's left foot Frances Olguin MD cc: [id number] TT: 05/29/2016 16:03:11 Confirmation # [id number] Dictation # [id number]
[2016-05-30] MEDS: cefTRIAXone 1 gm 100 ML IVPB SCH ×2 (09:14→09:20)
[2016-05-30] MEDS: SIMVASTATIN PO SCH (09:16)
[2016-05-30] MEDS: EZETIMIBE PO SCH (09:16)
[2016-05-30 09:17] VITALS: BP 149/70; PULSE 88
[2016-05-30 09:57] VITALS: RESP 18; O2SAT 96
--- NOTE | 2016-05-30 10:25 | CP.PCM.DIS ---
<Dada Wong - Last Filed: 05/31/16 11:03> Provider - Provider Date of Admission: 05/28/16 18:13 Attending physician: Jagdish Truong MD Primary care physician: Jagdish Truong MD Consults: Endocrinology - Dr. Olguin Time Spent in preparation of Discharge (in minutes): 30 Hospital Course - Lab Results Lab Results: Micro Results 05/28/16 20:20 Blood Blood Culture - Preliminary NO GROWTH AFTER 24 HOURS Most Recent Lab Values WBC 7.0 10^3/ul (4.5-11.0) 05/30/16 06:30 RBC 4.39 10^6/uL (3.5-6.1) 05/30/16 06:30 Hgb 11.8 gm/dL (12.0-16.0) L 05/30/16 06:30 Hct 36.1 % (36.0-48.0) 05/30/16 06:30 MCV 82.2 fL (80.0-105.0) 05/30/16 06:30 MCH 26.9 pg (25.0-35.0) 05/30/16 06:30 MCHC 32.7 g/dl (31.0-37.0) 05/30/16 06:30 RDW 15.4 % (11.5-14.5) H 05/30/16 06:30 Plt Count 302 10^3/uL (120.0-450.0) 05/30/16 06:30 MPV 10.1 fl (7.0-11.0) 05/30/16 06:30 Gran % 72.4 % (50.0-68.0) H 05/30/16 06:30 Lymph % (Auto) 11.8 % (22.0-35.0) L 05/30/16 06:30 Vance % (Auto) 12.4 % (1.0-6.0) H 05/30/16 06:30 Eos % (Auto) 2.8 % (1.5-5.0) 05/30/16 06:30 Baso % (Auto) 0.6 % (0.0-3.0) 05/30/16 06:30 Gran # 5.09 (1.4-6.5) 05/30/16 06:30 Lymph # 0.8 (1.2-3.4) L 05/30/16 06:30 Vance # 0.9 (0.1-0.6) H 05/30/16 06:30 Eos # 0.2 (0.0-0.7) 05/30/16 06:30 Baso # 0.04 K/mm3 (0.0-2.0) 05/30/16 06:30 Neutrophils % (Manual) 31 % (50.0-70.0) L 05/28/16 17:00 Lymphocytes % (Manual) 47 % (22.0-35.0) H 05/28/16 17:00 Atypical Lymphs % 6 % (0.0-0.0) H 05/28/16 17:00 Monocytes % (Manual) 13 % (1.0-6.0) H 05/28/16 17:00 Eosinophils % (Manual) 1 % (0.0-3.0) 05/28/16 17:00 Basophils % (Manual) 2 % (0.0-1.0) H 05/28/16 17:00 PT 10.4 Seconds (9.9-11.8) 05/28/16 17:00 INR 0.96 (0.93-1.08) 05/28/16 17:00 APTT 29.7 Seconds (23.7-30.8) 05/28/16 17:00 Sodium 135 mmol/L (132-148) 05/30/16 06:30 Potassium 4.3 mmol/L (3.6-5.0) 05/30/16 06:30 Chloride 103 mmol/L (98-107) 05/30/16 06:30 Carbon Dioxide 27 mmol/L (21-33) 05/30/16 06:30 Anion Gap 9 (10-20) L 05/30/16 06:30 BUN 5 mg/dL (7-21) L 05/30/16 06:30 Creatinine 0.6 mg/dL (0.5-1.4) 05/30/16 06:30 Est GFR ( Amer) > 60 05/30/16 06:30 Est GFR (Non-Af Amer) > 60 05/30/16 06:30 POC Glucose (mg/dL) 193 mg/dL (65-110) H 05/30/16 07:29 Random Glucose 207 mg/dL (70-110) H 05/30/16 06:30 Hemoglobin A1c 10.3 % (4.2-6.5) H 05/29/16 07:00 Calcium 8.2 mg/dL (8.4-10.5) L 05/30/16 06:30 Magnesium 1.9 mg/dL (1.7-2.2) 05/28/16 17:00 Total Bilirubin 0.5 mg/dL (0.2-1.3) 05/30/16 06:30 AST 29 U/L (15-39) 05/30/16 06:30 ALT 26 U/L (7-56) 05/30/16 06:30 Alkaline Phosphatase 103 U/L (38-133) 05/30/16 06:30 Lactate Dehydrogenase 525 U/L (333-699) 05/28/16 17:00 Total Creatine Kinase 104 U/L (35-230) 05/28/16 17:00 Troponin I < 0.01 ng/mL 05/28/16 17:00 Total Protein 7.3 g/dL (5.8-8.3) 05/30/16 06:30 Albumin 3.6 g/dL (3.0-4.8) 05/30/16 06:30 Globulin 3.6 gm/dL 05/30/16 06:30 Albumin/Globulin Ratio 1.0 (1.1-1.8) L 05/30/16 06:30 Triglycerides 111 mg/dL (35-160) 05/29/16 07:00 Cholesterol 133 mg/dL (130-200) 05/29/16 07:00 LDL Cholesterol Direct 59 mg/dL (0-129) 05/29/16 07:00 HDL Cholesterol 49 mg/dL (29-60) 05/29/16 07:00 Thyroxine (T4) 7.9 ug/dL (5.5-11.0) 05/29/16 07:00 TSH 3rd Generation 1.88 mIU/mL (0.46-4.68) 05/29/16 07:00 Cortisol AM Sample 14.1 ug/dL (4.46-22.7) 05/29/16 07:00 - Hospital Course Hospital Course: Patient is a 60yo female with past medical history of DM type 1, hypertension, hyperlipidemia, COPD, insomnia, diabetic neuropathy and anxiety that presented with altered mental status. History was obtained from the patient's who reported that his was confused and lethargic when he found her outside nearby her car. He reported checking her blood sugar and states that it was in the 40's. He subsequently reporting giving her orange juice and calling 911. In the ambulance states that the patient had what appeared to be a seizure and had muscular contractions. In the ED, the patient's sugars were found to be in the 40's and she was started on D5W fluids and given an amp of D5. The following workup/results were obtained during the patient's hospital course: 1. Hypoglycemic episode in setting of uncontrolled type 1 diabetes mellitus -Telemetry observation -Vitals were checked q4h -Finger stick blood glucose q4h -Patient was started on D5W -Humalog low dose sliding scale -Once patient's sugars normalized she was restarted on a basal/bolus regimen as per endocrinology recommendations -Endocrinology was consulted - Dr. Olguin -Head CT was completed and revealed no acute pathology -Neurology was consulted - Dr. Thomas and stated that the patient likely had a provoked seizure in the setting of a hypoglycemic episode 2. COPD -CXR revealed no active disease -Blood cultures were negative -Duoneb PRN 3. history of Hypothyroidism Continue levothyroxine 4. Diabetic neuropathy Continue lyrica 5. Hyperlipidemia Continue vytorin 6. Insomnia Continue temazepam and alprazoma 7. Anxiety Continue sertraline The patient subsequently improved throughout the course of her hospital admission and was extensively counseled on proper glycemic control as well as adherence to her insulin regimen. She was instructed to follow up with her c d reactor operator within 1 week of discharge and her primary care doctor within 1 week of discharge. All questions were answered and the results of her hospital course were discussed with her. She was agreeable to discharge and follow up as an outpatient. - Date & Time of H&P Date of H&P: 05/31/16 Time of H&P: 10:53 Discharge Exam - Head Exam Head Exam: ATRAUMATIC, NORMOCEPHALIC - Eye Exam Eye Exam: EOMI, PERRL. absent: Conjunctival injection, Scleral icterus Pupil Exam: NORMAL ACCOMODATION, PERRL - ENT Exam ENT Exam: Mucous Membranes Moist - Respiratory Exam Respiratory Exam: Clear to PA & Lateral. absent: Rales, Rhonchi, Wheezes - Cardiovascular Exam Cardiovascular Exam: RRR, +S1, +S2. absent: Bradycardia, Tachycardia, Diastolic murmur, Gallop, JVD, Rubs, Systolic Murmur - GI/Abdominal Exam GI & Abdominal Exam: Normal Bowel Sounds, Soft. absent: Distended, Firm, Guarding, Hernia, Rebound, Tenderness - Extremities Exam Extremities exam: normal inspection - Neurological Exam Neurological exam: Alert, CN II-XII Intact, Oriented x3 - Psychiatric Exam Psychiatric exam: Normal Affect, Normal Mood - Skin Skin Exam: Dry, Intact, Normal Color, Warm Discharge Plan - Follow Up Plan Condition: FAIR Disposition: HOME/ ROUTINE Instructions: How to Stop Smoking (GEN), Heart Healthy Diet (GEN), Cigarette Smoking and Your Health (GEN), Diabetes Mellitus Type 1 in Adults (DC), Diabetic Hypoglycemia (DC), Cholesterol and Your Health (GEN), Meal Planning with Diabetes Exchanges (GEN) Additional Instructions: 1. Follow up with your primary care doctor, Dr. Truong within 1-2 weeks. 2. Follow up with your c d reactor operator, Dr. Olguin within 1 week. 3. Take the medication prescribed to you as directed. 4. Resume your home insulin dosage of humalog and toujeo as instructed by your c d reactor operator. 5. Check your blood sugar before each meal and prior to bed and document your blood sugars. 6. Return to the emergency room should your condition worsen or change in severity/quality. Please follow heart healthy, consistent carbohyrate - diabetic exchange diet. Referrals: Jagdish Truong MD [Primary Care Provider] - <Jagdish Truong - Last Filed: 06/27/16 10:41> Provider - Provider Date of Admission: 05/28/16 18:13 Attending physician: Jagdish Truong MD Primary care physician: Jagdish Truong MD Hospital Course - Lab Results Lab Results: Micro Results 05/28/16 20:20 Blood Blood Culture - Final NO GROWTH AFTER 5 DAYS 05/28/16 20:20 Blood Gram Stain - Final TEST NOT PERFORMED Most Recent Lab Values WBC 7.0 10^3/ul (4.5-11.0) 05/30/16 06:30 RBC 4.39 10^6/uL (3.5-6.1) 05/30/16 06:30 Hgb 11.8 gm/dL (12.0-16.0) L 05/30/16 06:30 Hct 36.1 % (36.0-48.0) 05/30/16 06:30 MCV 82.2 fL (80.0-105.0) 05/30/16 06:30 MCH 26.9 pg (25.0-35.0) 05/30/16 06:30 MCHC 32.7 g/dl (31.0-37.0) 05/30/16 06:30 RDW 15.4 % (11.5-14.5) H 05/30/16 06:30 Plt Count 302 10^3/uL (120.0-450.0) 05/30/16 06:30 MPV 10.1 fl (7.0-11.0) 05/30/16 06:30 Gran % 72.4 % (50.0-68.0) H 05/30/16 06:30 Lymph % (Auto) 11.8 % (22.0-35.0) L 05/30/16 06:30 Vance % (Auto) 12.4 % (1.0-6.0) H 05/30/16 06:30 Eos % (Auto) 2.8 % (1.5-5.0) 05/30/16 06:30 Baso % (Auto) 0.6 % (0.0-3.0) 05/30/16 06:30 Gran # 5.09 (1.4-6.5) 05/30/16 06:30 Lymph # 0.8 (1.2-3.4) L 05/30/16 06:30 Vance # 0.9 (0.1-0.6) H 05/30/16 06:30 Eos # 0.2 (0.0-0.7) 05/30/16 06:30 Baso # 0.04 K/mm3 (0.0-2.0) 05/30/16 06:30 Neutrophils % (Manual) 31 % (50.0-70.0) L 05/28/16 17:00 Lymphocytes % (Manual) 47 % (22.0-35.0) H 05/28/16 17:00 Atypical Lymphs % 6 % (0.0-0.0) H 05/28/16 17:00 Monocytes % (Manual) 13 % (1.0-6.0) H 05/28/16 17:00 Eosinophils % (Manual) 1 % (0.0-3.0) 05/28/16 17:00 Basophils % (Manual) 2 % (0.0-1.0) H 05/28/16 17:00 PT 10.4 Seconds (9.9-11.8) 05/28/16 17:00 INR 0.96 (0.93-1.08) 05/28/16 17:00 APTT 29.7 Seconds (23.7-30.8) 05/28/16 17:00 Sodium 135 mmol/L (132-148) 05/30/16 06:30 Potassium 4.3 mmol/L (3.6-5.0) 05/30/16 06:30 Chloride 103 mmol/L (98-107) 05/30/16 06:30 Carbon Dioxide 27 mmol/L (21-33) 05/30/16 06:30 Anion Gap 9 (10-20) L 05/30/16 06:30 BUN 5 mg/dL (7-21) L 05/30/16 06:30 Creatinine 0.6 mg/dL (0.5-1.4) 05/30/16 06:30 Est GFR ( Amer) > 60 05/30/16 06:30 Est GFR (Non-Af Amer) > 60 05/30/16 06:30 POC Glucose (mg/dL) 193 mg/dL (65-110) H 05/30/16 07:29 Random Glucose 207 mg/dL (70-110) H 05/30/16 06:30 Hemoglobin A1c 10.3 % (4.2-6.5) H 05/29/16 07:00 Calcium 8.2 mg/dL (8.4-10.5) L 05/30/16 06:30 Magnesium 1.9 mg/dL (1.7-2.2) 05/28/16 17:00 Total Bilirubin 0.5 mg/dL (0.2-1.3) 05/30/16 06:30 AST 29 U/L (15-39) 05/30/16 06:30 ALT 26 U/L (7-56) 05/30/16 06:30 Alkaline Phosphatase 103 U/L (38-133) 05/30/16 06:30 Lactate Dehydrogenase 525 U/L (333-699) 05/28/16 17:00 Total Creatine Kinase 104 U/L (35-230) 05/28/16 17:00 Troponin I < 0.01 ng/mL 05/28/16 17:00 Total Protein 7.3 g/dL (5.8-8.3) 05/30/16 06:30 Albumin 3.6 g/dL (3.0-4.8) 05/30/16 06:30 Globulin 3.6 gm/dL 05/30/16 06:30 Albumin/Globulin Ratio 1.0 (1.1-1.8) L 05/30/16 06:30 Triglycerides 111 mg/dL (35-160) 05/29/16 07:00 Cholesterol 133 mg/dL (130-200) 05/29/16 07:00 LDL Cholesterol Direct 59 mg/dL (0-129) 05/29/16 07:00 HDL Cholesterol 49 mg/dL (29-60) 05/29/16 07:00 Thyroxine (T4) 7.9 ug/dL (5.5-11.0) 05/29/16 07:00 TSH 3rd Generation 1.88 mIU/mL (0.46-4.68) 05/29/16 07:00 Cortisol AM Sample 14.1 ug/dL (4.46-22.7) 05/29/16 07:00 ACTH 24 pg/mL (6-50) 05/29/16 07:00 Attending/Attestation - Attestation I have personally seen and examined this patient.: Yes I have fully participated in the care of the patient.: Yes I have reviewed all pertinent clinical information, including history, physical exam and plan: Yes Notes (Text): 06/27/16 10:40 Medial record note done by resident after patient personally seen and examined by me. I have reviewed the chart and agree that the record accurately reflects my personal evaluation, data review, and course for the patient.
--- NOTE | 2016-05-30 15:24 | PN ---
DATE: 05/30/2016 ROOM: 276 SUBJECTIVE: This is a 60-year-old female with recent uncontrolled type 1 insulin-dependent diabetes presenting here with symptomatic hypoglycemia and a brief bout of unresponsiveness and a brief witnes sed seizure event and is now being followed closely for metabolic management. Her oral intake is muc h improved at this time and the latest chemistries showed a BUN of 5, sodium 135, potassium 4.3, chlo ride 103, CO2 27, glucose 207 and creatinine 0.6. Her glucose levels have ranged from 159-193 mg/dL. Her hemoglobin A1c is 10.3% and is quite elevated and is indicative of suboptimal metabolic control of her diabetic condition even prior to this admission. She was previously on a [employer] insulin p ump for over 10 years or more and has now switched over back to multiple daily injections as noted th ereof. So, she will be discharged on her home insulin regimen which is Toujeo given at 20-30 units s ubQ at bedtime daily depending on the variability of her oral intake. She has also been advised to c ontinue the Humalog given as 12 units a.c. breakfast, 14 units a.c. lunch and 20 units a.c. dinner as ordered. She will be seen on the outpatient for ongoing diabetic followup. We will follow. Frances Olguin MD cc: [id number] TT: 05/30/2016 15:23:27 Confirmation # [id number] Dictation # [id number] tn
== END 2016-05-30 11:09 | disposition home or self-care (01) ==
LOC: ED 16:57 → ERH 18:13 → 2RSO 21:50
PROVIDERS: ADMIT Internal Medicine; ATTEND Internal Medicine
DX: E10.649 Type 1 diabetes mellitus with hypoglycemia without coma (principal); E10.319 Type 1 diabetes mellitus with unspecified diabetic retinopathy without macular edema; E10.42 Type 1 diabetes mellitus with diabetic polyneuropathy; E10.65 Type 1 diabetes mellitus with hyperglycemia; E78.00 Pure hypercholesterolemia, unspecified; E06.3 Autoimmune thyroiditis; E78.5 Hyperlipidemia, unspecified; F32.89 Other specified depressive episodes; F41.9 Anxiety disorder, unspecified; G47.00 Insomnia, unspecified; I11.9 Hypertensive heart disease without heart failure; J44.9 Chronic obstructive pulmonary disease, unspecified; F17.210 Nicotine dependence, cigarettes, uncomplicated; M81.0 Age-related osteoporosis without current pathological fracture; R32 Unspecified urinary incontinence; R56.9 Unspecified convulsions; Z79.4 Long term (current) use of insulin; Z79.83 Long term (current) use of bisphosphonates; Z79.899 Other long term (current) drug therapy; Z82.49 Family history of ischemic heart disease and other diseases of the circulatory system; Z83.3 Family history of diabetes mellitus; Z86.73 Personal history of transient ischemic attack (TIA), and cerebral infarction without residual deficits; K21.9 Gastro-esophageal reflux disease without esophagitis; Z86.19 Personal history of other infectious and parasitic diseases; L21.9 Seborrheic dermatitis, unspecified; D72.829 Elevated white blood cell count, unspecified; G56.00 Carpal tunnel syndrome, unspecified upper limb
CPT/HCPCS: 36415; 70450; 71010; 80053; 80061; 82024; 82533; 82550; 82948; 83036; 83615; 83735; 84436; 84443; 84484; 85025; 85610; 85730; 87040; 93005; 96365; 96366; 96375; 96376; 99285; G0378; J0696; J2405; J3480; J7030; J7042

== ENCOUNTER 2016-08-05 11:06 | Inpatient (IN) | payer BC ==
--- NOTE | 2016-08-05 11:32 | ED PDOC ---
Arrival/HPI - General Historian: Patient, Spouse - History of Present Illness Time/Duration: Prior to Arrival Symptom Onset: Sudden Symptom Course: Worsening Quality: Unable to Describe (n/o) Activities at Onset: Sleeping Context: Other (n/a) <Michelle Ho - Last Filed: 08/05/16 16:05> <Teddy Gramajo - Last Filed: 08/08/16 17:26> - General Chief Complaint: GI Problem Time Seen by Provider: 08/05/16 11:11 - History of Present Illness Narrative History of Present Illness (Text): 08/05/16 11:30 Patient is a 60 y/o with pmh of htn, IDDM2, CVA with no residue, hypothyroidism , heavy tobacco smoker presenting with vomiting since this AM. As per patient for the past 2 days she hasn't been eating or using her insulin. As per patient' s spouse, patient refused to eat, stated she didn't feel like it. Then this AM, patient started vomiting, patient and spouse are not able to quantify the number of time she vomited.The vomitus is brownish in color. Admits to prior history. Patient is also coughing, however non productive. Patient denies fever , chills, abdominal pain, dysuria. Patient admits to feeling tired. Denies cp or sob. (Michelle Ho) Past Medical History - Provider Review Nursing Documentation Reviewed: Yes - Travel History Have you recently traveled outside [place] w/in the past 3 mons?: No - Infectious Disease Hx of Infectious Diseases: C.diff - Tetanus Immunization Tetanus Immunization: Unknown - Cardiac Hx Cardiac Disorders: Yes Hx Angina: No Hx Cardiac Arrhythmia: No Hx Circulatory Problems: No Hx Congestive Heart Failure: No Hx Heart Murmur: No Hx Heart Transplant: No Hx Hypertension: Yes Hx Internal Defibrillator: No Hx Mitral Valve Prolapse: No Hx Pacemaker: No Hx Peripheral Edema: No Hx Peripheral Vascular Disease: No - Pulmonary Hx Respiratory Disorders: No Hx Asthma: No Hx Bronchitis: No Hx Chronic Obstructive Pulmonary Disease (COPD): No Hx Emphysema: No Hx Pneumonia: No Hx Respiratory Aspiration: No Hx Respiratory Tract Infection: No Hx Sleep Apnea: No Hx Tuberculosis: No - Neurological Hx Neurological Disorder: Yes Hx Alzheimer's Disease: No HX Cerebrovascular Accident: Yes Hx Dementia: No Hx Dizziness: No Hx Meningitis: No Hx Migraine: No Hx Parkinson's Disease: No Hx Seizures: No Hx Transient Ischemic Attacks (TIA): No - HEENT Hx HEENT Disorder: No Hx Blind: No Hx Cataracts: No Hx Deafness: No Hx Difficulty Chewing: No Hx Epistaxis: No Hx Glaucoma: No Hx Macular Degeneration: No - Renal Hx Renal Disorder: No Hx Dialysis: No Hx Kidney Stones: No Hx Neurogenic Bladder: No Hx Pyelonephritis: No Hx Renal Cancer: No Hx Renal Failure: No - Endocrine/Metabolic Hx Endocrine Disorders: Yes Hx Adrenal Cancer: No Hx Diabetes Insipidus: No Hx Diabetes Mellitus Type 1: No Hx Diabetes Mellitus Type 2: Yes Hx Hyperthyroidism: No Hx Hypothyroidism: Yes Hx Systemic Lupus Erythematosus: No - Hematological/Oncological Hx Blood Disorders: No Hx AIDS: No Hx Anemia: No Hx Cancer: No Hx Chemotherapy: No Hx Cirrhosis: No Hx Hemophilia: No Hx Hepatitis A: No Hx Hepatitis B: No Hx Hepatitis C: No Hx Metastasis: No Hx Shingles: No Hx Sickle Cell Disease: No Hx Unexplained Bleeding: No - Integumentary Hx Dermatological Disorder: Yes Hx Basal Cell Carcinoma: Yes (back and thigh) Hx Eczema: No Hx Melanoma: No Hx Psoriasis: No Hx Squamous Cell Carcinoma: No - Musculoskeletal/Rheumatological Hx Musculoskeletal Disorders: Yes Hx Arthritis: Yes Hx Back Pain: No Hx Degenerative Joint Disease: No Hx Falls: No Hx Fractures: No Hx Gout: No Hx Herniated Disk: No Hx Myasthenia Gravis: No Hx Osteoarthritis: No Hx Osteomyelitis: Yes Hx Osteoporosis: No Hx Rhabdomyolysis: No Hx Spinal Stenosis: No Hx Unsteady Gait: No - Gastrointestinal Hx Gastrointestinal Disorders: Yes Hx Colostomy: No Hx Crohn's Disease: No Hx Diverticulitis: No Hx Gall Bladder Disease: No Hx Gastroesophageal Reflux: Yes Hx Ileostomy: No Hx Liver Failure: No Hx Pancreatitis: No HX Swallowing Problems: No - Genitourinary/Gynecological Hx Genitourinary Disorders: Yes Hx Hematuria: No Hx Incontinence: Yes Hx Sexually Transmitted Diseases: No Hx Urinary Tract Infection: No - Psychiatric Hx Psychophysiologic Disorder: Yes Hx Anxiety: Yes Hx Bipolar Disorder: No Hx Depression: Yes Hx Emotional Abuse: No Hx Hallucinations: No Hx Panic Disorder: No Hx Post Traumatic Stress Disorder: No Hx Psychosis: No Hx Physical Abuse: No Hx Schizophrenia: No Hx Sexual Abuse: No Hx Substance Use: No - Surgical History Hx Amputation: No Hx Appendectomy: No Hx Cardiac Catheterization: No Hx Cholecystectomy: No Hx Coronary Stent: No Hx Gastric Bypass Surgery: No Hx Hysterectomy: No Hx Joint Replacement: No Hx Kidney Transplant: No Hx Liver Transplant: No Hx Mastectomy: No Hx Musculoskeletal Surgery: No Hx Open Heart Surgery: No Hx Orthopedic Surgery: No Hx Splenectomy: No Hx Valve Replacement: No - Anesthesia Hx Anesthesia Reactions: No Hx Malignant Hyperthermia: No - Suicidal Assessment Feels Threatened In Home Enviroment: No <Michelle Ho - Last Filed: 08/05/16 16:05> Family/Social History - Physician Review Nursing Documentation Reviewed: Yes Family/Social History: CVA/TIA, Diabetes, Hypertension Smoking Status: Heavy Smoker > 10 Cigarettes Daily Hx Alcohol Use: No Hx Substance Use: No <Michelle Ho - Last Filed: 08/05/16 16:05> Allergies/Home Meds <Michelle oH - Last Filed: 08/05/16 16:05> <Teddy Gramajo - Last Filed: 08/08/16 17:26> Allergies/Adverse Reactions: Allergies No Known Allergies Allergy (Verified 08/05/16 11:10) Home Medications: Home Meds Medication Instructions Recorded Confirmed Carvedilol 3.125 mg PO BID 11/07/12 08/05/16 Levothyroxine [Synthroid] 125 mcg PO DAILY 11/07/12 08/05/16 Losartan [Cozaar] 25 mg PO DAILY 11/07/12 08/05/16 Pregabalin [Lyrica] 75 mg PO HS 11/07/12 08/05/16 Sertraline HCl 50 mg PO HS 11/07/12 08/05/16 Famotidine [Pepcid] 20 mg PO DAILY 03/16/14 08/05/16 Alprazolam [Xanax] 0.5 mg PO HS 08/05/16 08/05/16 Cholecalciferol (Vitamin D3) 1 tab PO DAILY 08/05/16 08/05/16 [Vitamin D3] Clopidogrel [Plavix] 75 mg PO DAILY 08/05/16 08/05/16 Ezetimibe/Simvastatin [Vytorin 1 tab PO DAILY 08/05/16 08/05/16 10-40 mg Tablet] Insulin Pump Controller [Snap 0 units .ROUTE PRN PRN 08/05/16 08/05/16 Insulin Pump Controller] Temazepam [Restoril] 30 mg PO HS 08/05/16 08/05/16 Review of Systems - Review of Systems Constitutional: Fatigue. absent: Fevers Eyes: Normal ENT: Normal Respiratory: Cough. absent: SOB, Sputum, Wheezing Cardiovascular: Normal Gastrointestinal: Nausea, Vomiting. absent: Abdominal Pain, Stool Changes, Constipation, Diarrhea Genitourinary Female: Normal Musculoskeletal: Normal Skin: Normal Neurological: Normal Endocrine: Normal Hemo/Lymphatic: Normal Psychiatric: Normal <Michelle Ho - Last Filed: 08/05/16 16:05> Physical Exam Vital Signs Reviewed: Yes Temperature: Afebrile Blood Pressure: Hypotensive Pulse: Tachycardic Respiratory Rate: Normal Appearance: Positive for: Ill-Appearing, Uncomfortable Pain Distress: Mild Mental Status: Positive for: Alert and Oriented X 3 Finger Stick Blood Glucose: 500 - Systems Exam Head: Present: Atraumatic, Normocephalic Pupils: Present: PERRL Extroacular Muscles: Present: EOMI Conjunctiva: Present: Normal Mouth: Present: Dry Neck: Present: Normal Range of Motion. No: Meningeal Signs, JVD Respiratory/Chest: Present: Clear to Auscultation, Good Air Exchange. No: Respiratory Distress, Accessory Muscle Use Cardiovascular: Present: Regular Rate and Rhythm, Normal S1, S2, Tachycardic. No: Murmurs, Irregular Rhythm, Bradycardic Abdomen: Present: Normal Bowel Sounds, Scars. No: Tenderness, Distention, Peritoneal Signs, Rebound, Guarding Back: Present: Normal Inspection Upper Extremity: Present: Normal Inspection. No: Cyanosis, Edema Lower Extremity: Present: Normal Inspection. No: Edema Neurological: Present: GCS=15, Speech Normal Skin: Present: Warm, Dry, Normal Color Psychiatric: Present: Alert, Oriented x 3, Normal Insight, Normal Concentration <Michelle Ho - Last Filed: 08/05/16 16:05> Medical Decision Making - EKG Interpretation Interpreted by ED Physician: Yes (Sinus tachycarida @ rate of 100 bmp. ) Type: 12 lead EKG <Michelle Ho - Last Filed: 08/05/16 16:05> - Critical Care Critical Care Minutes: 45 minutes <Teddy Gramajo - Last Filed: 08/08/16 17:26> ED Course and Treatment: 08/05/16 11:39 Patient is a 60 y/o with PMH IDDM2, CVA and hypothyroidism presenting with intractable vomiting and is found to be hypotensive and hyperglycemic. Differentials: sepsis, DKA, HHS, Gastritis, hyperthyroism. Plan: fingertsick, sepsis work up including cbc, cmp, bcx, ua, ucx, chest x-ray , EKG, VBG. 2 litter IV bolus, zofran and reevaluate Case discussed with Dr Gramajo. 08/05/16 12:09 Glucose of 821, with gap of 29, potassium of 5.7, lactic acid 2.5- started on insulin drip, bmp q4, fingerstick q2. 08/05/16 12:[address] Mayfield regarding the patient, accepted patient to Dr Truong service. 08/05/16 12:25- Dr Gramajo spoke to Dr Calderon, accepted patient into the unit. 08/05/16 13:01- market president, Hawk Johnston aware of the admission. (Michelle Ho) resident note Patient Seen With Resident: In agreement with resident note which contains more details about the patient. Patient was seen and evaluated with resident. Came up with plan and treatment together. A 60 year old female with vomiting and nonproductive cough. Additional HPI details as noted by resident. On physical exam, no acute findings. Ordered EKG, chest xray, urinalysis and labs. Will give IV fluids and Zofran. (Teddy Gramajo) - Lab Interpretations Microbiology Results: Microbiology Results 08/05/16 11:35 Blood Blood Culture - Preliminary NO GROWTH AFTER 3 DAYS 08/05/16 11:35 Blood Blood Culture - Preliminary NO GROWTH AFTER 3 DAYS Lab Results: 08/05/16 11:35 08/05/16 11:35 Lab Results 08/05/16 11:45: TSH 3rd Generation 0.15 L 08/05/16 11:35: Sodium 131 L, Chloride 92 L, Potassium 5.7 H* D, Carbon Dioxide 10 L D, Anion Gap 35 H, BUN 32 H, Creatinine 1.5 H, Est GFR ( Amer) 43, Est GFR (Non-Af Amer) 35, Random Glucose 821 H* D, Calcium 9.3, Phosphorus 9.5 H , Magnesium 2.2, Total Bilirubin 0.5, AST 27, ALT 26, Alkaline Phosphatase 129, Troponin I < 0.01, NT-Pro-B Natriuret Pep 243, Total Protein 7.9, Albumin 4.3, Globulin 3.6, Albumin/Globulin Ratio 1.2 08/05/16 11:35: pO2 50, VBG pH 7.07 L*, VBG pCO2 34.0 L, VBG HCO3 9.9 L, VBG Total CO2 10.9 L, VBG O2 Sat (Calc) 82.0 H, VBG Base Excess -19.3 L, VBG Potassium 6.1 H, Sodium 128.0 L, Chloride 92.0 L, Glucose > 750 H*, Lactate 2.5 H, FiO2 21.0, Venous Blood Potassium 6.1 H 08/05/16 11:35: PT 10.7, INR 0.99, APTT 26.8 08/05/16 11:35: Procalcitonin 0.40 08/05/16 11:35: WBC 17.2 H D, RBC 4.72, Hgb 13.0, Hct 42.1, MCV 89.2, MCH 27.5, MCHC 30.9 L, RDW 14.8 H, Plt Count 316, MPV 11.6 H, Gran % 89.9 H, Lymph % (Auto ) 5.8 L, Reagan % (Auto) 3.9, Eos % (Auto) 0.1 L, Baso % (Auto) 0.3, Gran # 15.46 H, Lymph # 1.0 L, Reagan # 0.7 H, Eos # 0.0, Baso # 0.06 - RAD Interpretation Radiology Orders: 08/05/16 11:25 CHEST PORTABLE [RAD] Stat - Medication Orders Current Medication Orders: Acetaminophen (Tylenol 325mg Tab) 650 mg PO Q6H PRN PRN Reason: Pain, Mild (1-3) Last Admin: 08/08/16 05:06 Dose: 650 mg Re-Assess: JOSE Pain/Vitals Document 08/08/16 06:06 AL (Rec: 08/08/16 07:12 AL [id number]) Pain Reassessment Is This A Pain ReAssessment? Yes Sleep Is patient sleeping during reassessment? Yes Albuterol/Ipratropium (Duoneb 3 Mg/0.5 Mg (3 Ml) Ud) 3 ml IH Q2H PRN PRN Reason: Shortness of Breath Albuterol/Ipratropium (Duoneb 3 Mg/0.5 Mg (3 Ml) Ud) 3 ml IH [id number] [facility] Last Admin: 08/08/16 13:33 Dose: Not Given Non-Admin Reason: Patient Refused Arformoterol Tartrate (Brovana) 15 mcg IH [id number] [facility] Last Admin: 08/08/16 07:48 Dose: Not Given Non-Admin Reason: Patient Refused Budesonide (Pulmicort Respules) 0.25 mg IH [id number] [facility] Last Admin: 08/08/16 07:48 Dose: Not Given Non-Admin Reason: Patient Refused Carvedilol (Coreg) 3.125 mg PO BID [facility] Last Admin: 08/08/16 09:14 Dose: 3.125 mg Clopidogrel Bisulfate (Plavix) 75 mg PO DAILY [facility] Last Admin: 08/08/16 09:14 Dose: 75 mg Home Med (Home Med) 1 unit PO HS PRN PRN Reason: Sleep Ceftriaxone Sodium (Rocephin 1 Gram Ivpb) 1 gm in 100 mls @ 100 mls/hr IVPB DAILY [facility] PRN Reason: Protocol Last Admin: 08/08/16 09:14 Dose: 100 mls/hr Potassium Chloride 20 meq/ (Dextrose/Sodium Chloride) 1,010 mls @ 150 mls/hr IV .Q6H44M [facility] Last Admin: 08/08/16 16:22 Dose: 150 mls/hr Doxycycline Hyclate 100 mg/ (Sodium Chloride) 100 mls @ 100 mls/hr IVPB Q12 [facility] PRN Reason: Protocol Last Admin: 08/08/16 10:17 Dose: 100 mls/hr Insulin Detemir (Levemir) 14 unit SC HS [facility] Insulin Human Lispro (Humalog Low) 0 units SC ACHS [facility] PRN Reason: Protocol Last Admin: 08/08/16 12:00 Dose: Not Given Non-Admin Reason: Blood Sugar Parameter Insulin Human Lispro (Humalog) 3 units SC AC [facility] Levothyroxine Sodium (Synthroid) 100 mcg PO ACB [facility] Last Admin: 08/08/16 08:34 Dose: 100 mcg Losartan Potassium (Cozaar) 25 mg PO DAILY [facility] Last Admin: 08/08/16 09:14 Dose: 25 mg Non-Formulary Medication (Ezetimibe/Simvastatin [Vytorin 10-40 Mg Tablet]) 1 tab PO DAILY [facility] Last Admin: 08/08/16 10:00 Dose: Ondansetron HCl (Zofran Inj) 4 mg IVP Q4H PRN PRN Reason: Nausea/Vomiting Last Admin: 08/08/16 15:53 Dose: 4 mg Pantoprazole Sodium (Protonix Inj) 40 mg IVP DAILY [facility] Last Admin: 08/08/16 09:15 Dose: 40 mg Pregabalin (Lyrica) 75 mg PO HS [facility] Last Admin: 08/07/16 22:54 Dose: Not Given Non-Admin Reason: Patient Refused Sertraline HCl (Zoloft) 50 mg PO HS [facility] Last Admin: 08/07/16 21:52 Dose: 50 mg Vitamin D (Vitamin D 400 Intl Units Tab) 400 intlu PO DAILY [facility] Last Admin: 08/08/16 09:14 Dose: 400 intlu Discontinued Medications Arformoterol Tartrate (Brovana) 15 mcg IH [id number] [facility] Sodium Chloride 2,000 ml/ IV (SUPPLIES) 2,000 mls @ 5,334.24 mls/hr IV ONCE ONE PRN Reason: 60 ML/KG/HR Stop: 08/05/16 11:25 Last Admin: 08/05/16 11:36 Dose: 5,334.24 mls/hr Insulin Human Regular 100 (units/ Sodium Chloride) 100 mls @ 9 mls/hr IV .Q11H7M PRN; Protocol; 9 UNITS/HR PRN Reason: TITRATE PER MD ORDER Last Titration: 08/06/16 11:45 Dose: 0 units/hr, 0 mls/hr Sodium Chloride (Sodium Chloride 0.9%) 1,000 mls @ 200 mls/hr IV .Q5H [facility] Last Admin: 08/05/16 20:11 Dose: 200 mls/hr Sodium Chloride (Sodium Chloride 0.9%) 1,000 mls @ 999 mls/hr IV .Q1H1M STA Stop: 08/05/16 14:21 Last Admin: 08/05/16 13:36 Dose: 999 mls/hr Sodium Chloride (Sodium Chloride 0.9%) 1,000 mls @ 999 mls/hr IV .Q1H1M STA Stop: 08/05/16 17:41 Last Admin: 08/05/16 16:54 Dose: 999 mls/hr Sodium Chloride (Sodium Chloride 0.9%) 1,000 mls @ 999 mls/hr IV .Q1H1M STA Stop: 08/05/16 17:50 Last Admin: 08/05/16 18:23 Dose: 999 mls/hr Sodium Chloride (Sodium Chloride 0.9%) 1,000 mls @ 999 mls/hr IV .Q1H1M STA Stop: 08/05/16 17:52 Insulin Detemir (Levemir) 30 unit SC DAILY [facility] Last Admin: 08/06/16 10:37 Dose: 30 unit Insulin Detemir (Levemir) 20 unit SC HS [facility] Last Admin: 08/07/16 21:52 Dose: 20 unit Insulin Human Lispro (Humalog) 4 units SC AC [facility] Last Admin: 08/08/16 12:00 Dose: Not Given Non-Admin Reason: BP Parameters Not Met Insulin Human Regular (Humulin R) 10 units IV STAT STA Stop: 08/05/16 12:24 Last Admin: 08/05/16 12:34 Dose: 10 units Insulin Human Regular (Humulin R Low) 0 units SC Q4H [facility] PRN Reason: Protocol Last Admin: 08/06/16 21:17 Dose: Not Given Non-Admin Reason: Blood Sugar Parameter Levothyroxine Sodium (Synthroid) 125 mcg PO ACB [facility] Levothyroxine Sodium (Synthroid) 125 mcg PO DAILY [facility] Last Admin: 08/06/16 10:45 Dose: Levothyroxine Sodium (Synthroid) 100 mcg PO DAILY [facility] Levothyroxine Sodium (Synthroid) 100 mcg PO DAILY [facility] Ondansetron HCl (Zofran Inj) 4 mg IVP ONCE ONE Stop: 08/05/16 11:38 Last Admin: 08/05/16 11:57 Dose: 4 mg Zolpidem Tartrate (Ambien) 5 mg PO ONCE ONE Stop: 08/07/16 21:01 Last Admin: 08/07/16 21:52 Dose: 5 mg Re-Assess: Reassess Psych Meds Document 08/07/16 22:52 AL (Rec: 08/07/16 22:54 AL [id number]) Reassess Psych Med Effective <Michelle Ho - Last Filed: 08/05/16 16:05> - Scribe Statement The provider has reviewed the documentation as recorded by the Scribe <Teddy Gramajo - Last Filed: 08/08/16 17:26> - Scribe Statement Kyle Nichole Provider Scribe Attestation: All medical record entries made by the Scribe were at my direction and personally dictated by me. I have reviewed the chart and agree that the record accurately reflects my personal performance of the history, physical exam, medical decision making, and the department course for this patient. I have also personally directed, reviewed, and agree with the discharge instructions and disposition. (Teddy Gramajo) Disposition/Present on Arrival - Present on Arrival Any Indicators Present on Arrival: Yes History of DVT/PE: No History of Uncontrolled Diabetes: Yes Urinary Catheter: No History of Decub. Ulcer: No History Surgical Site Infection Following: None - Disposition Have Diagnosis and Disposition been Completed?: Yes Disposition Time: 12:24 Patient Plan: Admission, ICU <Michelle Ho - Last Filed: 08/05/16 16:05> <Teddy Gramajo - Last Filed: 08/08/16 17:26> - Disposition Diagnosis: DKA (diabetic ketoacidoses) Disposition: HOSPITALIZED Patient Problems: Current Active Problems Problem Status Onset DKA (diabetic ketoacidoses) Acute Condition: SERIOUS
[2016-08-05 11:36] LABS: ADD MANUAL DIFF? NO
[2016-08-05 11:44] LABS: VENOUS BLOOD GAS BASE EXCESS -19.3 mmol/L (0.0-2.0); VENOUS BLOOD PH 7.07 (7.32-7.43)
[2016-08-05 11:45] LABS: BASO # 0.06 K/mm3 (0.0-2.0); BASO % 0.3 % (0.0-3.0); EOS % 0.1 % (1.5-5.0); GRAN # 15.46 (1.4-6.5); GRAN % 89.9 % (50.0-68.0); HEMATOCRIT 42.1 % (36.0-48.0); LYMPH % 5.8 % (22.0-35.0); MEAN CELL VOLUME 89.2 fL (80.0-105.0); MEAN CORPUSCULAR HEMOGLOBIN 27.5 pg (25.0-35.0); MEAN CORPUSCULAR HGB CONC 30.9 g/dl (31.0-37.0); MEAN PLATELET VOLUME 11.6 fl (7.0-11.0); MONO # 0.7 (0.1-0.6); MONO % 3.9 % (1.0-6.0); PLATELET COUNT 316 10^3/uL (120.0-450.0); RED CELL DISTRIBUTION WIDTH 14.8 % (11.5-14.5); WHITE BLOOD COUNT 17.2 10^3/ul (4.5-11.0)
[2016-08-05 11:52] LABS: ALB/GLOB RATIO 1.2 (1.1-1.8); ALKALINE PHOSPHATASE 129 U/L (38-133); ALT/SGPT 26 U/L (7-56); AST/SGOT 27 U/L (15-39); BILIRUBIN,TOTAL 0.5 mg/dL (0.2-1.3); BLOOD UREA NITROGEN 32 mg/dL (7-21); CALCIUM 9.3 mg/dL (8.4-10.5); CARBON DIOXIDE 10 mmol/L (21-33); CHLORIDE 92 mmol/L (98-107); GFR AFRICAN-AMERICAN 43; MAGNESIUM 2.2 mg/dL (1.7-2.2); PHOSPHOROUS 9.5 mg/dL (2.5-4.5); SODIUM 131 mmol/L (132-148); TOTAL PROTEIN 7.9 g/dL (5.8-8.3)
--- NOTE | 2016-08-05 11:52 | RAD ---
HISTORY: Sepsis Patient COMPARISON: Chest x-ray performed 05/28/16 TECHNIQUE: Chest, one view. FINDINGS: Examination limited by habitus. LUNGS: No focal consolidation. Please note that chest x-ray has limited sensitivity for the detection of pulmonary masses. PLEURA: No significant pleural effusion identified. No definite pneumothorax . CARDIOVASCULAR: Heart size appears within normal limits. OSSEOUS STRUCTURES: No acute osseous abnormality identified. VISUALIZED UPPER ABDOMEN: Unremarkable. OTHER FINDINGS: None. IMPRESSION: No focal consolidation, significant pleural effusion, or definite pneumothorax identified.
[2016-08-05 11:59] LABS: GLUCOSE,RANDOM 821 mg/dL (70-110)
[2016-08-05 12:00] LABS: POTASSIUM 5.7 mmol/L (3.6-5.0)
[2016-08-05] MEDS ORDERED: Insulin Regular 100 UNITS in Sodium Chloride 0.9% 99 ML IV PRN (12:01)
[2016-08-05 12:04] LABS: TROPONIN I < 0.01 ng/mL
[2016-08-05 12:08] LABS: INR 0.99 (0.93-1.08); PARTIAL THROMBOPLASTIN TIME 26.8 Seconds (23.7-30.8)
[2016-08-05] MEDS ORDERED: Insulin Regular 1 UNITS/0.01 ML ML IV STA (12:23)
--- NOTE | 2016-08-05 12:48 | CP.PCM.CON ---
<Leola Lange - Last Filed: 08/05/16 13:34> History of Present Illness - History of Present Illness History of Present Illness: ICU Consult Note Reason for consult: Hyperglycemia This is a 60Y F with PMH uncontrolled DM type I, diabetic nephropathy, Hypothyroidism, HTN, HLD, insomnia, and anxiety here for nausea and vomiting x 2 days. Patient is lethargic upon time of interview. She reports she hasn't been feeling well for 2 days. She has not been eating and has vomited many times. Vomitus is described as brown in color. Yesterday she was vomiting and did not take her insulin. She denies having any pain, sick contacts, CP, SOB, diarrhea, fever or chills. After reviewing previous records, patient is noted to have an insulin pump in past, but has not used it for a long time. Her staffing administrator is Dr. Olguin. PMH: As above PSH: All: NKDA SH: smokes 2 ppd x 50yrs, denies drinking or drug use. FH: Denies PMD: Dr. Truong Review of Systems - Constitutional Constitutional: absent: Chills, Fever - EENT Eyes: absent: Change in Vision Nose/Mouth/Throat: absent: Dysphagia, Sore Throat - Cardiovascular Cardiovascular: absent: Chest Pain, Diaphoresis, Leg Edema, Syncope - Respiratory Respiratory: absent: Cough, Dyspnea - Gastrointestinal Gastrointestinal: Nausea, Vomiting. absent: Abdominal Pain, Diarrhea, Dysphagia , Melena - Genitourinary Genitourinary: absent: Dysuria, Hematuria - Musculoskeletal Musculoskeletal: absent: Arthralgias, Numbness, Tingling - Neurological Neurological: absent: Numbness, Tingling, Tremor, Weakness - Endocrine Endocrine: absent: Cold Intolorance, Heat Intolorance Past Patient History - Infectious Disease Hx of Infectious Diseases: C.diff - Tetanus Immunizations Tetanus Immunization: Unknown - Past Social History Smoking Status: Heavy Smoker > 10 Cigarettes Daily Alcohol: None Drugs: Denies Home Situation {Lives}: With Family - CARDIAC Hx Cardiac Disorders: Yes Hx Angina: No Hx Cardia Arrhythmia: No Hx Circulatory Problems: No Hx Congestive Heart Failure: No Hx Heart Murmur: No Hx Heart Transplant: No Hx Hypertension: Yes Hx Internal Defibrillator: No Hx Mitral Valve Prolapse: No Hx Pacemaker: No Hx Peripheral Edema: No Hx Peripheral Vascular Disease: No - PULMONARY Hx Respiratory Disorders: No Hx Asthma: No Hx Bronchitis: No Hx Chronic Obstructive Pulmonary Disease (COPD): No Hx Emphysema: No Hx Pneumonia: No Hx Respiratory Aspiration: No Hx Respiratory Tract Infection: No Hx Sleep Apnea: No Hx Tuberculosis: No - NEUROLOGICAL Hx Neurological Disorder: Yes Hx Alzheimer's Disease: No HX Cerebrovascular Accident: Yes Hx Dementia: No Hx Dizziness: No Hx Meningitis: No Hx Migraine: No Hx Parkinson's Disease: No Hx Seizures: No Hx Transient Ischemic Attacks (TIA): No - HEENT Hx HEENT Problems: No Hx Blind: No Hx Cataracts: No Hx Deafness: No Hx Difficulty Chewing: No Hx Epistaxis: No Hx Glaucoma: No Hx Macular Degeneration: No - RENAL Hx Chronic Kidney Disease: No Hx Dialysis: No Hx Kidney Stones: No Hx Neurogenic Bladder: No Hx Pyelonephritis: No Hx Renal (Kidney) Cancer: No Hx Renal Failure: No - ENDOCRINE/METABOLIC Hx Endocrine Disorders: Yes Hx Adrenal Cancer: No Hx Diabetes Insipidus: No Hx Diabetes Mellitus Type 1: No Hx Diabetes Mellitus Type 2: Yes Hx Hyperthyroidism: No Hx Hypothyroidism: Yes Hx Systemic Lupus Erythematosus: No - HEMATOLOGICAL/ONCOLOGICAL Hx Blood Disorders: No Hx AIDS: No Hx Anemia: No Hx Cancer: No Hx Chemotherapy: No Hx Cirrhosis: No Hx Hemophilia: No Hx Hepatitis A: No Hx Hepatitis B: No Hx Hepatitis C: No Hx Metastesis: No Hx Shingles: No Hx Sickle Cell Disease: No Hx Unexplained Bleeding: No - INTEGUMENTARY Hx Dermatological Problems: Yes Hx Basil Cell: Yes (back and thigh) Hx Eczema: No Hx Melanoma: No Hx Psoriasis: No Hx Squamous Cell: No - MUSCULOSKELETAL/RHEUMATOLOGICAL Hx Musculoskeletal Disorders: Yes Hx Arthritis: Yes Hx Back Pain: No Hx Degenerative Joint Disease: No Hx Falls: No Hx Fractures: No Hx Gout: No Hx Herniated Disk: No Hx Myasthenia Gravis: No Hx Osteoarthritis: No Hx Osteomyelitis: Yes Hx Osteoporosis: No Hx Rhabdomyolysis: No Hx Spinal Stenosis: No Hx Unsteady Gait: No - GASTROINTESTINAL Hx Gastrointestinal Disorders: Yes Hx Colostomy: No Hx Crohn's Disease: No Hx Diverticulitis: No Hx Gall Bladder Disease: No Hx Gastroesophageal Reflux: Yes Hx Ileostomy: No Hx Liver Failure: No Hx Pancreatitis: No HX Swallowing Problems: No - GENITOURINARY/GYNECOLOGICAL Hx Genitourinary Disorders: Yes Hx Hematuria: No Hx Incontinence: Yes Hx Sexually Transmitted Disorders: No Hx Urinary Tract Infection: No - PSYCHIATRIC Hx Psychophysiologic Disorder: Yes Hx Anxiety: Yes Hx Bipolar Disorder: No Hx Depression: Yes Hx Emotional Abuse: No Hx Hallucinations: No Hx Panic Symptoms: No Hx Post Traumatic Stress Disorder: No Hx Psychosis: No Hx Physical Abuse: No Hx Schizophrenia: No Hx Sexual Abuse: No Hx Substance Use: No - SURGICAL HISTORY Hx Amputation: No Hx Appendectomy: No Hx Cardiac Catheterization: No Hx Cholecystectomy: No Hx Coronary Stent: No Hx Gastric Bypass Surgery: No Hx Hysterectomy: No Hx Joint Replacement: No Hx Kidney Transplant: No Hx Liver Transplant: No Hx Mastectomy: No Hx Musculoskeletal Surgery: No Hx Open Heart Surgery: No Hx Orthopedic Surgery: No Hx Splenectomy: No Hx Valve Replacement: No - ANESTHESIA Hx Anesthesia Reactions: No Hx Malignant Hyperthermia: No Meds Allergies/Adverse Reactions: Allergies Allergy/AdvReac Type Severity Reaction Status Date / Time No Known Allergies Allergy Verified 08/05/16 11:10 - Medications Medications: Current Medications Insulin Human Regular 100 (units/ Sodium Chloride) 100 mls @ 9 mls/hr IV .Q11H7M PRN; Protocol; 9 UNITS/HR PRN Reason: TITRATE PER MD ORDER Sodium Chloride (Sodium Chloride 0.9%) 1,000 mls @ 200 mls/hr IV .Q5H ERIKA Ondansetron HCl (Zofran Inj) 4 mg IVP Q4H PRN PRN Reason: Nausea/Vomiting Physical Exam - Constitutional Appears: No Acute Distress - Head Exam Head Exam: ATRAUMATIC, NORMAL INSPECTION, NORMOCEPHALIC - Eye Exam Eye Exam: Normal appearance, PERRL Pupil Exam: NORMAL ACCOMODATION, PERRL - ENT Exam ENT Exam: Mucous Membranes Dry - Respiratory Exam Respiratory Exam: Clear to Auscultation Bilateral, NORMAL BREATHING PATTERN. absent: Rales, Rhonchi, Wheezes - Cardiovascular Exam Cardiovascular Exam: REGULAR RHYTHM, +S1, +S2. absent: Gallop, Rubs, Systolic Murmur - GI/Abdominal Exam GI & Abdominal Exam: Normal Bowel Sounds, Soft. absent: Distended, Guarding, Mass, Tenderness - Extremities Exam Extremities exam: Positive for: normal inspection. Negative for: calf tenderness, pedal edema - Neurological Exam Neurological exam: Alert, CN II-XII Intact, Oriented x3 - Psychiatric Exam Psychiatric exam: Normal Affect, Normal Mood - Skin Skin Exam: Dry, Intact, Normal Color, Warm Results - Vital Signs Recent Vital Signs: Last Vital Signs Temp 97.8 F 08/05/16 11:16 Pulse 105 H 08/05/16 12:10 Resp 18 08/05/16 12:10 BP 103/57 L 08/05/16 12:10 Pulse Ox 98 08/05/16 12:10 - Labs Result Diagrams: 08/05/16 11:35 08/05/16 11:35 Labs: Laboratory Results - last 24 hr 08/05/16 08/05/16 08/05/16 11:35 11:35 11:35 WBC 17.2 H D RBC 4.72 Hgb 13.0 Hct 42.1 MCV 89.2 MCH 27.5 MCHC 30.9 L RDW 14.8 H Plt Count 316 MPV 11.6 H Gran % 89.9 H Lymph % (Auto) 5.8 L [place] % (Auto) 3.9 Eos % (Auto) 0.1 L Baso % (Auto) 0.3 Gran # 15.46 H Lymph # 1.0 L [place] # 0.7 H Eos # 0.0 Baso # 0.06 PT 10.7 INR 0.99 APTT 26.8 pO2 50 VBG pH 7.07 L* VBG pCO2 34.0 L VBG HCO3 9.9 L VBG Total CO2 10.9 L VBG O2 Sat (Calc) 82.0 H VBG Base Excess -19.3 L VBG Potassium 6.1 H Sodium 128.0 L Chloride 92.0 L Glucose > 750 H* Lactate 2.5 H FiO2 21.0 Potassium Carbon Dioxide Anion Gap BUN Creatinine Est GFR ( Amer) Est GFR (Non-Af Amer) Random Glucose Calcium Phosphorus Magnesium Total Bilirubin AST ALT Alkaline Phosphatase Troponin I NT-Pro-B Natriuret Pep Total Protein Albumin Globulin Albumin/Globulin Ratio Venous Blood Potassium 6.1 H 08/05/16 11:35 WBC RBC Hgb Hct MCV MCH MCHC RDW Plt Count MPV Gran % Lymph % (Auto) [place] % (Auto) Eos % (Auto) Baso % (Auto) Gran # Lymph # [place] # Eos # Baso # PT INR APTT pO2 VBG pH VBG pCO2 VBG HCO3 VBG Total CO2 VBG O2 Sat (Calc) VBG Base Excess VBG Potassium Sodium 131 L Chloride 92 L Glucose Lactate FiO2 Potassium 5.7 H* D Carbon Dioxide 10 L D Anion Gap 35 H BUN 32 H Creatinine 1.5 H Est GFR ( Amer) 43 Est GFR (Non-Af Amer) 35 Random Glucose 821 H* D Calcium 9.3 Phosphorus 9.5 H Magnesium 2.2 Total Bilirubin 0.5 AST 27 ALT 26 Alkaline Phosphatase 129 Troponin I < 0.01 NT-Pro-B Natriuret Pep 243 Total Protein 7.9 Albumin 4.3 Globulin 3.6 Albumin/Globulin Ratio 1.2 Venous Blood Potassium Assessment & Plan - Assessment and Plan (Free Text) Assessment: This is a 60Y F with PMH uncontrolled DM type I, diabetic nephropathy, Hypothyroidism, HTN, HLD, insomnia, and anxiety here for DKA and leukocytosis. Plan: Neuro: A&O x 3 Maintain normothermia CV: HD stable at this time-will monitor Maintain MAP >65 Pulm: Comfortable on room air Maintain SpO2>90% GI: NPO at this time NS@200 Amylase, lipase negative Monitor I&O Zofran prn nausea Heme: Hgb stable- no signs of overt bleeding Continue to monitor CBC Nephro: AMELIE- most likely prerenal secondary to dehydration Will monitor electrolytes as replace as indicated ID: Afebrile with leukocytosis CXR negative Abd XR showed no evidence of obstruction- normal gas pattern U/A pending Rocephin Septic work up pending Endo: DKA treatment protocol: Insulin drip and NS@200 Fingerstick q1h BMP q4h- will monitor anion gap Endo consulted GI ppx: Protonix DVT ppx: SCDs Case seen, discussed and reviewed with attending. Chaz Lange PGY1 - Date & Time Date: 08/05/16 Time: 13:00 <Yumiko ZHU,Shayla - Last Filed: 08/05/16 15:24> Meds - Medications Medications: Current Medications Carvedilol (Coreg) 3.125 mg PO BID ERIKA Clopidogrel Bisulfate (Plavix) 75 mg PO DAILY [facility] Insulin Human Regular 100 (units/ Sodium Chloride) 100 mls @ 9 mls/hr IV .Q11H7M PRN; Protocol; 9 UNITS/HR PRN Reason: TITRATE PER MD ORDER Last Titration: 06/18/17 15:09 Dose: 6 units/hr, 6 mls/hr Sodium Chloride (Sodium Chloride 0.9%) 1,000 mls @ 200 mls/hr IV .Q5H ERIKA Last Admin: 08/05/16 15:14 Dose: 200 mls/hr Ceftriaxone Sodium (Rocephin 1 Gram Ivpb) 1 gm in 100 mls @ 100 mls/hr IVPB DAILY ERIKA PRN Reason: Protocol Last Admin: 08/05/16 13:44 Dose: 100 mls/hr Levothyroxine Sodium (Synthroid) 125 mcg PO ACB ERIKA Losartan Potassium (Cozaar) 25 mg PO DAILY ERIKA Non-Formulary Medication (Ezetimibe/Simvastatin [Vytorin 10-40 Mg Tablet]) 1 tab PO DAILY ERIKA Ondansetron HCl (Zofran Inj) 4 mg IVP Q4H PRN PRN Reason: Nausea/Vomiting Pantoprazole Sodium (Protonix Inj) 40 mg IVP DAILY ERIKA Pregabalin (Lyrica) 75 mg PO HS ERIKA Sertraline HCl (Zoloft) 50 mg PO HS ERIKA Vitamin D (Vitamin D 400 Intl Units Tab) 400 intlu PO DAILY ERIKA Results - Vital Signs Recent Vital Signs: Last Vital Signs Temp 98 F 08/05/16 14:50 Pulse 110 H 08/05/16 14:50 Resp 18 08/05/16 14:50 BP 113/66 08/05/16 13:52 Pulse Ox 98 08/05/16 13:52 - Labs Result Diagrams: 08/05/16 11:35 08/05/16 11:35 Labs: Laboratory Results - last 24 hr 08/05/16 08/05/16 12:47 14:20 Magnesium 2.2 Amylase 48 Lipase 55 Attending/Attestation - Attestation I have personally seen and examined this patient.: Yes I have fully participated in the care of the patient.: Yes I have reviewed all pertinent clinical information: Yes Notes (Text): 08/05/16 15:22 60 y/o F w/ DKA and Leukocytosis DKD Protocol Insulin drip weight based. NS @ 200ml/ hr after 4 L NS Accuchecks q 1hrs BMP q 4 hrs Once BS < 250 chage IV fluids to D5NS Replace K as the K approaches 4.5 on BMP Monitor urine output Blood , urine cx drawn. Empiric abx w/ Rocephin given. nausea and vomiting unclear if its viral or due to the metabolic PH imbalance. PRn Zofran . KUB done to r/o Obstruction. Endrocrine consult needed . NPO DVT P PPI cc time 65 min
--- NOTE | 2016-08-05 13:09 | RAD ---
HISTORY: vomiting COMPARISON: None available. FINDINGS: Examination limited by habitus. Lung bases demonstrate mild left basilar atelectasis. No visible pleural effusion or pneumothorax. BOWEL: Nonspecific bowel gas pattern without findings to suggest obstruction. No definite free air. BONES: No acute osseous abnormality is detected. OTHER FINDINGS: None. IMPRESSION: Mild left basilar atelectasis. Nonspecific bowel gas pattern without findings to suggest obstruction.
[2016-08-05 13:13] LABS: AMYLASE 48 U/L (35-125); LIPASE 55 U/L (23-300)
[2016-08-05] MEDS ORDERED: Sodium Chloride 0.9% 1,000 ML IV STA ×4 (13:21→16:52)
[2016-08-05] MEDS: cefTRIAXone 1 gm 1 GM/100 ML BAG IVPB SCH (13:44)
--- NOTE | 2016-08-05 14:01 | CP.PCM.HP ---
<Jose Lei - Last Filed: 08/05/16 14:58> History of Present Illness - History of Present Illness History of Present Illness: This is a 60 yo female with past medical hx of uncontrolled DM type I, diabetic nephropathy, hypothyroidism, HTN, HLD, insomnia, and anxiety here for nausea and vomiting x 2 days. Patient is lethargic upon time of interview and history is limited. She reports she hasn't been feeling well for 2 days. She has not been eating and has vomited many times. Vomitus is described as brown in color, non bloody. Yesterday she was vomiting and did not take her insulin. She reports that she occasionally will miss her insulin. She says she checked her blood sugar this morning and it was very high. She cannot say the number. She reports having episodes of DKA in the past. She denies having any pain, sick contacts, chest pain, SOB, diarrhea, fever or chills. After reviewing previous records, patient is noted to have an insulin pump in past, but has not used it for a long time. Her mimeograph operator is Dr. Olguin. She sees her every three months. PMH: DM type 1, diabetic nephropathy, hypothyroidism, HTN, HLD PSH: , pilonidal cyst removal All: NKDA SH: Current smoker. smokes 2 ppd x 50yrs, denies drinking or drug use. Lives with at home in [place]. FH: Denies PMD: Dr. Truong Present on Admission - Present on Admission Any Indicators Present on Admission: Yes History of DVT/PE: No History of Uncontrolled Diabetes: Yes Urinary Catheter: No Decubitus Ulcer Present: No Review of Systems - Review of Systems All systems: reviewed and no additional remarkable complaints except Review of Systems: negative except as per hpi. Past Patient History - Infectious Disease Hx of Infectious Diseases: C.diff - Tetanus Immunizations Tetanus Immunization: Unknown - Past Social History Smoking Status: Heavy Smoker > 10 Cigarettes Daily Alcohol: None Drugs: Denies Home Situation {Lives}: With Family Domestic Violence: Negative - CARDIAC Hx Cardiac Disorders: Yes Hx Angina: No Hx Cardia Arrhythmia: No Hx Circulatory Problems: No Hx Congestive Heart Failure: No Hx Heart Murmur: No Hx Heart Transplant: No Hx Hypertension: Yes Hx Internal Defibrillator: No Hx Mitral Valve Prolapse: No Hx Pacemaker: No Hx Peripheral Edema: No Hx Peripheral Vascular Disease: No - PULMONARY Hx Respiratory Disorders: No Hx Asthma: No Hx Bronchitis: No Hx Chronic Obstructive Pulmonary Disease (COPD): No Hx Emphysema: No Hx Pneumonia: No Hx Respiratory Aspiration: No Hx Respiratory Tract Infection: No Hx Sleep Apnea: No Hx Tuberculosis: No - NEUROLOGICAL Hx Neurological Disorder: Yes Hx Alzheimer's Disease: No HX Cerebrovascular Accident: Yes Hx Dementia: No Hx Dizziness: No Hx Meningitis: No Hx Migraine: No Hx Parkinson's Disease: No Hx Seizures: No Hx Transient Ischemic Attacks (TIA): No - HEENT Hx HEENT Problems: No Hx Blind: No Hx Cataracts: No Hx Deafness: No Hx Difficulty Chewing: No Hx Epistaxis: No Hx Glaucoma: No Hx Macular Degeneration: No - RENAL Hx Chronic Kidney Disease: No Hx Dialysis: No Hx Kidney Stones: No Hx Neurogenic Bladder: No Hx Pyelonephritis: No Hx Renal (Kidney) Cancer: No Hx Renal Failure: No - ENDOCRINE/METABOLIC Hx Endocrine Disorders: Yes Hx Adrenal Cancer: No Hx Diabetes Insipidus: No Hx Diabetes Mellitus Type 1: No Hx Diabetes Mellitus Type 2: Yes Hx Hyperthyroidism: No Hx Hypothyroidism: Yes Hx Systemic Lupus Erythematosus: No - HEMATOLOGICAL/ONCOLOGICAL Hx Blood Disorders: No Hx AIDS: No Hx Anemia: No Hx Cancer: No Hx Chemotherapy: No Hx Cirrhosis: No Hx Hemophilia: No Hx Hepatitis A: No Hx Hepatitis B: No Hx Hepatitis C: No Hx Metastesis: No Hx Shingles: No Hx Sickle Cell Disease: No Hx Unexplained Bleeding: No - INTEGUMENTARY Hx Dermatological Problems: Yes Hx Basil Cell: Yes (back and thigh) Hx Eczema: No Hx Melanoma: No Hx Psoriasis: No Hx Squamous Cell: No - MUSCULOSKELETAL/RHEUMATOLOGICAL Hx Musculoskeletal Disorders: Yes Hx Arthritis: Yes Hx Back Pain: No Hx Degenerative Joint Disease: No Hx Falls: No Hx Fractures: No Hx Gout: No Hx Herniated Disk: No Hx Myasthenia Gravis: No Hx Osteoarthritis: No Hx Osteomyelitis: Yes Hx Osteoporosis: No Hx Rhabdomyolysis: No Hx Spinal Stenosis: No Hx Unsteady Gait: No - GASTROINTESTINAL Hx Gastrointestinal Disorders: Yes Hx Colostomy: No Hx Crohn's Disease: No Hx Diverticulitis: No Hx Gall Bladder Disease: No Hx Gastroesophageal Reflux: Yes Hx Ileostomy: No Hx Liver Failure: No Hx Pancreatitis: No HX Swallowing Problems: No - GENITOURINARY/GYNECOLOGICAL Hx Genitourinary Disorders: Yes Hx Hematuria: No Hx Incontinence: Yes Hx Sexually Transmitted Disorders: No Hx Urinary Tract Infection: No - PSYCHIATRIC Hx Psychophysiologic Disorder: Yes Hx Anxiety: Yes Hx Bipolar Disorder: No Hx Depression: Yes Hx Emotional Abuse: No Hx Hallucinations: No Hx Panic Symptoms: No Hx Post Traumatic Stress Disorder: No Hx Psychosis: No Hx Physical Abuse: No Hx Schizophrenia: No Hx Sexual Abuse: No Hx Substance Use: No - SURGICAL HISTORY Hx Amputation: No Hx Appendectomy: No Hx Cardiac Catheterization: No Hx Cholecystectomy: No Hx Coronary Stent: No Hx Gastric Bypass Surgery: No Hx Hysterectomy: No Hx Joint Replacement: No Hx Kidney Transplant: No Hx Liver Transplant: No Hx Mastectomy: No Hx Musculoskeletal Surgery: No Hx Open Heart Surgery: No Hx Orthopedic Surgery: No Hx Splenectomy: No Hx Valve Replacement: No - ANESTHESIA Hx Anesthesia Reactions: No Hx Malignant Hyperthermia: No Meds Allergies/Adverse Reactions: Allergies Allergy/AdvReac Type Severity Reaction Status Date / Time No Known Allergies Allergy Verified 08/05/16 11:10 Physical Exam - Constitutional Additional comments: Lethargic - Head Exam Head Exam: ATRAUMATIC, NORMAL INSPECTION, NORMOCEPHALIC - Eye Exam Eye Exam: EOMI - ENT Exam ENT Exam: Mucous Membranes Moist - Neck Exam Neck exam: Positive for: Full Rom, Normal Inspection - Respiratory Exam Respiratory Exam: NORMAL BREATHING PATTERN. absent: Respiratory Distress - Cardiovascular Exam Cardiovascular Exam: +S1, +S2 - GI/Abdominal Exam GI & Abdominal Exam: Normal Bowel Sounds, Soft. absent: Tenderness - Extremities Exam Extremities exam: Positive for: full ROM, normal inspection - Neurological Exam Neurological exam: Alert, Oriented x3 - Psychiatric Exam Psychiatric exam: Normal Affect, Normal Mood - Skin Skin Exam: Dry, Intact, Normal Color, Warm Results - Vital Signs Recent Vital Signs: Last Vital Signs Temp 97.8 F 08/05/16 11:16 Pulse 107 H 08/05/16 13:52 Resp 18 08/05/16 13:52 BP 113/66 08/05/16 13:52 Pulse Ox 98 08/05/16 13:52 - Labs Result Diagrams: 08/05/16 11:35 08/05/16 11:35 Labs: Laboratory Results - last 24 hr 08/05/16 12:47 Amylase 48 Lipase 55 Assessment & Plan - Assessment and Plan (Free Text) Assessment: This is a 60 yo female with past medical hx of DM type 1, diabetic nephropathy, hypothyroidism, TIA, anxiety presenting with chief complaint of "high blood sugar" and found to be in DKA 1. DKA -DKA protocol -insulin drip -NS 200 -fingersticks q 1 -ICU admission -amylase, lipase negative -zofran for nausea -abd x ray negative -ua pending -IV rocephin -endo consult. Dr. Cooper recs appreciated. 2. AMELIE -NS 200 -likely prerenal 3. hx of hypothyroidism -resume synthroid 4. hx of TIA -continue home plavix 5. hx of HTN -continue losartan from home -continue home coreg 6. hx of HLD -continue simvastatin 7. hx of depression -continue zoloft 8. GI/DVT ppx -protonix -scds to be discussed with Dr. Mayfield <Shawn Mayfield - Last Filed: 08/06/16 17:47> Results - Vital Signs Recent Vital Signs: Last Vital Signs Temp 98.8 F 08/06/16 16:00 Pulse 76 08/06/16 15:00 Resp 19 08/06/16 15:00 BP 98/49 L 08/06/16 14:00 Pulse Ox 96 08/06/16 15:00 - Labs Result Diagrams: 08/06/16 05:30 08/06/16 12:00 Labs: Laboratory Results - last 24 hr 08/05/16 08/05/16 08/05/16 17:10 18:34 19:03 WBC RBC Hgb Hct MCV MCH MCHC RDW Plt Count MPV Gran % Lymph % (Auto) Howell % (Auto) Eos % (Auto) Baso % (Auto) Gran # Lymph # Howell # Eos # Baso # pO2 VBG pH VBG pCO2 VBG HCO3 VBG Total CO2 VBG O2 Sat (Calc) VBG Base Excess VBG Potassium Sodium Chloride Glucose Lactate FiO2 Potassium Carbon Dioxide Anion Gap BUN Creatinine Est GFR ( Amer) Est GFR (Non-Af Amer) POC Glucose (mg/dL) 390 H 285 H 281 H Random Glucose Hemoglobin A1c Calcium Procalcitonin TSH 3rd Generation Venous Blood Potassium 08/05/16 08/05/16 08/05/16 19:53 20:40 20:40 WBC RBC Hgb Hct MCV MCH MCHC RDW Plt Count MPV Gran % Lymph % (Auto) Howell % (Auto) Eos % (Auto) Baso % (Auto) Gran # Lymph # Howell # Eos # Baso # pO2 30 VBG pH 7.18 L* VBG pCO2 56.0 VBG HCO3 20.9 L VBG Total CO2 22.6 VBG O2 Sat (Calc) 58.7 VBG Base Excess -7.8 L VBG Potassium 4.4 Sodium 140 140.0 Chloride 110 H 112.0 H Glucose 209 H Lactate 2.7 H FiO2 21.0 Potassium 4.4 Carbon Dioxide 19 L Anion Gap 15 BUN 30 H Creatinine 1.1 Est GFR ( Amer) > 60 Est GFR (Non-Af Amer) 50 POC Glucose (mg/dL) 383 H Random Glucose 190 H Hemoglobin A1c Calcium 7.5 L Procalcitonin TSH 3rd Generation Venous Blood Potassium 4.4 08/05/16 08/05/16 08/05/16 20:51 21:55 23:05 WBC RBC Hgb Hct MCV MCH MCHC RDW Plt Count MPV Gran % Lymph % (Auto) Howell % (Auto) Eos % (Auto) Baso % (Auto) Gran # Lymph # Howell # Eos # Baso # pO2 VBG pH VBG pCO2 VBG HCO3 VBG Total CO2 VBG O2 Sat (Calc) VBG Base Excess VBG Potassium Sodium Chloride Glucose Lactate FiO2 Potassium Carbon Dioxide Anion Gap BUN Creatinine Est GFR ( Amer) Est GFR (Non-Af Amer) POC Glucose (mg/dL) 205 H 162 H 122 H Random Glucose Hemoglobin A1c Calcium Procalcitonin TSH 3rd Generation Venous Blood Potassium 08/05/16 08/06/16 08/06/16 23:54 00:20 00:20 WBC RBC Hgb Hct MCV MCH MCHC RDW Plt Count MPV Gran % Lymph % (Auto) Howell % (Auto) Eos % (Auto) Baso % (Auto) Gran # Lymph # Howell # Eos # Baso # pO2 58 H VBG pH 7.24 L VBG pCO2 42.0 VBG HCO3 18.0 L VBG Total CO2 19.3 L VBG O2 Sat (Calc) 93.2 H VBG Base Excess -9.0 L VBG Potassium 4.3 Sodium 140.0 141 Chloride 114.0 H 114 H Glucose 134 H Lactate 0.9 FiO2 21.0 Potassium 4.3 Carbon Dioxide 17 L Anion Gap 14 BUN 24 H Creatinine 0.9 Est GFR ( Amer) > 60 Est GFR (Non-Af Amer) > 60 POC Glucose (mg/dL) 150 H Random Glucose 121 H Hemoglobin A1c Calcium 7.1 L Procalcitonin TSH 3rd Generation Venous Blood Potassium 4.3 08/06/16 08/06/16 08/06/16 01:04 02:05 03:02 WBC RBC Hgb Hct MCV MCH MCHC RDW Plt Count MPV Gran % Lymph % (Auto) Howell % (Auto) Eos % (Auto) Baso % (Auto) Gran # Lymph # Howell # Eos # Baso # pO2 VBG pH VBG pCO2 VBG HCO3 VBG Total CO2 VBG O2 Sat (Calc) VBG Base Excess VBG Potassium Sodium Chloride Glucose Lactate FiO2 Potassium Carbon Dioxide Anion Gap BUN Creatinine Est GFR ( Amer) Est GFR (Non-Af Amer) POC Glucose (mg/dL) 180 H 158 H 149 H Random Glucose Hemoglobin A1c Calcium Procalcitonin TSH 3rd Generation Venous Blood Potassium 08/06/16 08/06/16 08/06/16 03:56 04:56 05:30 WBC RBC Hgb Hct MCV MCH MCHC RDW Plt Count MPV Gran % Lymph % (Auto) Howell % (Auto) Eos % (Auto) Baso % (Auto) Gran # Lymph # Howell # Eos # Baso # pO2 VBG pH VBG pCO2 VBG HCO3 VBG Total CO2 VBG O2 Sat (Calc) VBG Base Excess VBG Potassium Sodium 139 Chloride 113 H Glucose Lactate FiO2 Potassium 4.2 Carbon Dioxide 20 L Anion Gap 10 BUN 22 H Creatinine 0.8 Est GFR ( Amer) > 60 Est GFR (Non-Af Amer) > 60 POC Glucose (mg/dL) 140 H 160 H Random Glucose 139 H Hemoglobin A1c Calcium 7.2 L Procalcitonin TSH 3rd Generation Venous Blood Potassium 08/06/16 08/06/16 08/06/16 05:30 05:30 06:06 WBC 21.1 H D RBC 4.04 Hgb 10.9 L Hct 33.0 L MCV 81.7 MCH 27.0 MCHC 33.0 RDW 14.2 Plt Count 299 MPV 10.7 Gran % 81.6 H Lymph % (Auto) 9.9 L Howell % (Auto) 8.3 H Eos % (Auto) 0.0 L Baso % (Auto) 0.2 Gran # 17.24 H Lymph # 2.1 Howell # 1.8 H Eos # 0.0 Baso # 0.04 pO2 VBG pH VBG pCO2 VBG HCO3 VBG Total CO2 VBG O2 Sat (Calc) VBG Base Excess VBG Potassium Sodium Chloride Glucose Lactate FiO2 Potassium Carbon Dioxide Anion Gap BUN Creatinine Est GFR ( Amer) Est GFR (Non-Af Amer) POC Glucose (mg/dL) 192 H Random Glucose Hemoglobin A1c 10.4 H Calcium Procalcitonin TSH 3rd Generation Venous Blood Potassium 08/06/16 08/06/16 08/06/16 07:10 09:00 09:00 WBC RBC Hgb Hct MCV MCH MCHC RDW Plt Count MPV Gran % Lymph % (Auto) Howell % (Auto) Eos % (Auto) Baso % (Auto) Gran # Lymph # Howell # Eos # Baso # pO2 VBG pH VBG pCO2 VBG HCO3 VBG Total CO2 VBG O2 Sat (Calc) VBG Base Excess VBG Potassium Sodium 138 Chloride 112 H Glucose Lactate FiO2 Potassium 4.2 Carbon Dioxide 20 L Anion Gap 10 BUN 19 Creatinine 0.7 Est GFR ( Amer) > 60 Est GFR (Non-Af Amer) > 60 POC Glucose (mg/dL) 161 H Random Glucose 152 H Hemoglobin A1c Calcium 7.3 L Procalcitonin TSH 3rd Generation 0.08 L Venous Blood Potassium 08/06/16 08/06/16 12:00 12:00 WBC RBC Hgb Hct MCV MCH MCHC RDW Plt Count MPV Gran % Lymph % (Auto) Howell % (Auto) Eos % (Auto) Baso % (Auto) Gran # Lymph # Howell # Eos # Baso # pO2 VBG pH VBG pCO2 VBG HCO3 VBG Total CO2 VBG O2 Sat (Calc) VBG Base Excess VBG Potassium Sodium 137 Chloride 112 H Glucose Lactate FiO2 Potassium 4.0 Carbon Dioxide 20 L Anion Gap 9 L BUN 17 Creatinine 0.7 Est GFR ( Amer) > 60 Est GFR (Non-Af Amer) > 60 POC Glucose (mg/dL) Random Glucose 157 H Hemoglobin A1c Calcium 7.3 L Procalcitonin 0.60 H TSH 3rd Generation Venous Blood Potassium Attending/Attestation - Attestation I have personally seen and examined this patient.: Yes I have fully participated in the care of the patient.: Yes I have reviewed all pertinent clinical information: Yes Notes (Text): 08/06/16 17:47 Medical record note made by the resident after discussion with my direction and input after the patient was personally seen and examined by me. I have reviewed the chart and agree that the record accurately reflects by personal performance of the history, physical exam, data review, and medical decision-making, in the course for the patient. I have also personally directed the plan of care.
[2016-08-05 14:55] VITALS: BMI 32.5
[2016-08-05] MEDS: Sodium Chloride 0.9% 1,000 ML IV SCH ×2 (15:14→20:11)
[2016-08-05 15:45] LABS: PH,URINE 5.5 (4.7-8.0); URINE BILIRUBIN MODERATE (NEGATIVE); URINE BLOOD NEGATIVE (NEGATIVE); URINE GLUCOSE (UA) >=1000 mg/dL (NEGATIVE); URINE KETONE 15 mg/dL (NEGATIVE); URINE LEUKOCYTE ESTERASE NEGATIVE Leu/uL (NEGATIVE); URINE UROBILINOGEN 0.2 E.U./dL (<1 E.U./dL)
[2016-08-05 15:46] LABS: URINE APPEARANCE CLEAR (CLEAR); URINE COLOR YELLOW (YELLOW); URINE PROTEIN NEGATIVE mg/dL (<30 mg/dL)
[2016-08-05 16:11] LABS: VENOUS BLOOD GAS BASE EXCESS -19.5 mmol/L (0.0-2.0); VENOUS BLOOD PH 7.04 (7.32-7.43)
[2016-08-05 16:30] LABS: CALCIUM 8.1 mg/dL (8.4-10.5); POTASSIUM 4.4 mmol/L (3.6-5.0)
--- NOTE | 2016-08-05 18:52 | CON ---
DATE: 08/05/2016 LOCATION: [facility]U 129, room 6. HISTORY OF PRESENT ILLNESS: This is a 60-year-old female very well known to me with type 1 insulin-d ependent diabetes, presenting here with intractable vomiting and supervening hyperglycemic accelerati ons and has now been admitted to ICU in diabetic ketoacidosis and is being referred for further evalu ation and management. PAST MEDICAL HISTORY: As mentioned above, history of type 1 insulin-dependent diabetes since early jacky and has been actually a type 1 diabetic for over 50 years and actually received an award fro m the [facility] in [place] for having made it to 50 years of diabetes. She has been on a Medtroni c insulin pump for over 10 years, but this was discontinued a few months ago because of persistent ea rly morning hypoglycemia and extremes of glycemic fluctuations, the last A1c of which was 10.3% on th e pump. She was switched over to a combination of Toujeo given at 30 units subQ at bedtime daily wit h Humalog given at the variable dose of 10-14 units t.i.d. before meals. History of hypertension and dyslipidemia, history of diabetic retinopathy and polyneuropathy with painful paresthesias nocturnal ly, history of hypothyroidism and has been euthyroid on levothyroxine given as 125 mcg daily, history of generalized anxiety and has been on Xanax medications at bedtime. FAMILY HISTORY: Positive for hypertension and diabetes. SOCIAL HISTORY: The patient is a very heavy cigarette smokers consuming 2 packs of cigarettes for, a gain, over 50 years. No other known substance use. She is and has a very supportive . 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 REVIEW OF SYSTEMS: As mentioned above, admits to generalized body weakness with easy fatigability an d tiredness and suboptimal energy level. Also admits to dizziness and lightheadedness worse, in the last week or so prior to admission. No chest pains or palpitations, but admits to progressive shortn ess of breath, especially on exertion and prominent in the last 2-3 days prior to admission. Admits to recent onset of nausea, dyspepsia, and progressively worsening vomiting episodes over the last 2 d ays prior to admission and stopped using her insulin yesterday as noted. Also admits to marked polyu antonio, nocturia, polydipsia, worse in the last 2 days prior to admission. PHYSICAL EXAMINATION: GENERAL: This is an average built female in no apparent distress. VITAL SIGNS: Blood pressure of 140/80, pulse of 100 beats per minute and regular, temperature 98, re spirations 20. Height is 5 feet 5 inches. Weight is 196 pounds. HEENT: Head normocephalic. Eyes anicteric with pink conjunctivae. Fundoscopy not possible at this time. Ears, nose and throat otherwise normal. NECK: Supple. Thyroid gland is normal size. No carotid bruits. No cervical adenopathy. CARDIOPULMONARY: Has an adynamic precordium. S1, S2 is rapid and regular. LUNGS: Clear to auscultation. ABDOMEN: Flat, soft with positive bowel sounds. EXTREMITIES: No peripheral edema. Pulses are +2 bilaterally. LABORATORY DATA: Her CBC: WBC is 17.2, hemoglobin of 13, hematocrit of 42, MCV 89, platelets 316. Chemistries showed BUN is 32, sodium 131, potassium 5.7, chloride 92, CO2 is 10, glucose is 821 mg/dL , creatinine is 1.5. The last CO2 is still 10 and the glucose levels have ranged from 488-588 mg/dL. ASSESSMENT: This is a 60-year-old female with uncontrolled and decompensated type 1 insulin-dependen t diabetes presenting here with intractable vomiting and evaluated to be in diabetic ketoacidosis and dehydration with spurious hyponatremia and hyperkalemia as noted thereof. She has had very poor met abolic control of her diabetic condition even with the use of the Medtronic insulin pump for many yea rs, the last A1c of which was 10.3% a few months ago. She also has diabetic microvascular complicati ons of retinopathy and painful diabetic polyneuropathy and nephropathy with microalbuminuria. So far , she has no evidence of any cardiac macrovascular complications as her last cardiac workup was suzanna l with an echo and stress test done by her production repairer. She had a previous transient ischemic attac k with no residual neurologic deficits. There is a strong history of nicotine dependence with a smok ing history of over 50 years as noted, to the present time. PLAN OF MANAGEMENT: As discussed with the patient and the staff, we will continue the intensive insu ivone therapy given with an insulin drip infusion and hourly glucose testing as undertaken since admiss ion. Moreover, she needs vigorous IV hydration which she is getting right now and we will continue t he IV hydration and intensive insulin therapy until we get a CO2 of at least over 15-18 mg/dL. As sh paul tolerates the solid food intake, which will be started tonight, then we will switch her over to a m ore physiologic basal and bolus insulin drug combination by tomorrow morning. In the meantime, we wi ll continue the current intensive insulin therapy with the insulin drip infusion tonight. We will ob tain serial chemistries and supplement accordingly as needed. We will repeat the thyroid studies and adjust and titrate her levothyroxine dose accordingly. We will reinforce diabetic education and tary instructions at the time of this admission and we will consult our nurse educator, Ms. Erika javier to see the patient tomorrow also. We will follow. Frances Olguin MD cc: [id number] TT: 08/05/2016 18:51:07 Confirmation # [id number] Dictation # [id number]
[2016-08-05 20:59] LABS: VENOUS BLOOD GAS BASE EXCESS -7.8 mmol/L (0.0-2.0); VENOUS BLOOD PH 7.18 (7.32-7.43)
[2016-08-05 21:14] LABS: BLOOD UREA NITROGEN 30 mg/dL (7-21); CALCIUM 7.5 mg/dL (8.4-10.5); CARBON DIOXIDE 19 mmol/L (21-33); CHLORIDE 110 mmol/L (98-107); GFR AFRICAN-AMERICAN > 60; GLUCOSE,RANDOM 190 mg/dL (70-110); POTASSIUM 4.4 mmol/L (3.6-5.0); SODIUM 140 mmol/L (132-148)
--- NOTE | 2016-08-05 21:54 | CARD ---
APPROVED REPORT EKG Measurement Heart [id number] <Conclusion> Normal sinus rhythm Possible Left atrial enlargement Left axis deviation Incomplete right bundle branch block Cannot rule out Inferior infarct, age undetermined Abnormal ECG
[2016-08-05] MEDS: Potassium Chloride 20 MEQ in Dextrose 5%/0.45% NS 1,000 ML IV SCH (23:57)
[2016-08-06 00:33] LABS: VENOUS BLOOD PH 7.24 (7.32-7.43)
[2016-08-06 00:43] LABS: BLOOD UREA NITROGEN 24 mg/dL (7-21); CALCIUM 7.1 mg/dL (8.4-10.5); CARBON DIOXIDE 17 mmol/L (21-33); CHLORIDE 114 mmol/L (95-110); GFR AFRICAN-AMERICAN > 60; GLUCOSE,RANDOM 121 mg/dL (70-110); POTASSIUM 4.3 mmol/L (3.6-5.0); SODIUM 141 mmol/L (132-148)
[2016-08-06] MEDS: Potassium Chloride 20 MEQ in Dextrose 5%/0.45% NS 1,000 ML IV SCH ×3 (06:17→22:00)
[2016-08-06 07:04] LABS: BLOOD UREA NITROGEN 22 mg/dL (7-21); CALCIUM 7.2 mg/dL (8.4-10.5); CARBON DIOXIDE 20 mmol/L (21-33); CHLORIDE 113 mmol/L (98-107); GFR AFRICAN-AMERICAN > 60; GLUCOSE,RANDOM 139 mg/dL (70-110); POTASSIUM 4.2 mmol/L (3.6-5.0); SODIUM 139 mmol/L (132-148)
[2016-08-06 07:23] LABS: BASO # 0.04 K/mm3 (0.0-2.0); BASO % 0.2 % (0.0-3.0); GRAN # 17.24 (1.4-6.5); GRAN % 81.6 % (50.0-68.0); LYMPH # 2.1 (1.2-3.4); LYMPH % 9.9 % (22.0-35.0); MEAN CELL VOLUME 81.7 fL (80.0-105.0); MEAN PLATELET VOLUME 10.7 fl (7.0-11.0); MONO # 1.8 (0.1-0.6); MONO % 8.3 % (1.0-6.0); PLATELET COUNT 299 10^3/uL (120.0-450.0); RED CELL DISTRIBUTION WIDTH 14.2 % (11.5-14.5); WHITE BLOOD COUNT 21.1 10^3/ul (4.5-11.0)
[2016-08-06 07:29] LABS: ADD MANUAL DIFF? NO
[2016-08-06] MEDS ORDERED: Levothyroxine 112 MCG TAB PO SCH (07:30)
--- NOTE | 2016-08-06 08:40 | CP.CCUPN ---
<Major Luong - Last Filed: 08/06/16 10:42> CCU Subjective - Physician Review Events Since Last Encounter (Free Text): Overnight patient had one episode of emesis, remained on insulin drip, maintained blood glucose <200. 08/06/16 08:38 Subjective (Free Text): Patient reports resolution of nausea, no dizziness, SOB, chest pain, cough. She reports regular bowel and urinary function, her only complaint is a headache. 08/06/16 08:39 CCU Objective - Vital Signs / Intake & Output Vital Signs (Last 4 hours): Vital Signs Pulse Resp BP Pulse Ox 08/06/16 06:10 94 H 95 08/06/16 06:00 95 H 20 110/46 L 96 08/06/16 05:50 94 H 26 H 96 08/06/16 05:40 95 H 22 95 08/06/16 05:30 95 H 22 95 08/06/16 05:20 92 H 22 95 08/06/16 05:10 95 H 23 94 L 08/06/16 05:00 97 H 25 H 101/37 L 93 L 08/06/16 04:50 97 H 20 94 L 08/06/16 04:40 102 H 94 L Intake and Output (Last 8hrs): Intake & Output 08/05/16 08/06/16 08/06/16 22:59 06:59 14:59 Intake Total 7524.5 1709.0 2 Output Total 910 200 Balance 6614.5 1509.0 2 Intake: IV 2424.5 1709.0 2 lac 2400 1700 Other 5100 Output: Urine 900 200 Urine, Voided 900 200 Emesis 10 Other: Voiding Method Bedpan Bedpan # Voids Urine, Voided 1 1 # Bowel Movements 1 - Physical Exam Head: Positive for: Atraumatic, Normocephalic Pupils: Positive for: PERRL Extroacular Muscles: Positive for: EOMI Conjunctiva: Positive for: Normal Mouth: Positive for: Dry Neck: Positive for: Normal Range of Motion. Negative for: Meningeal Signs, JVD Respiratory/Chest: Positive for: Clear to Auscultation, Good Air Exchange. Negative for: Respiratory Distress, Accessory Muscle Use Cardiovascular: Positive for: Regular Rate and Rhythm, Normal S1, S2, Tachycardic. Negative for: Murmurs, Irregular Rhythm, Bradycardic Abdomen: Positive for: Normal Bowel Sounds, Scars. Negative for: Tenderness, Distention, Peritoneal Signs, Rebound, Guarding Back: Positive for: Normal Inspection Upper Extremity: Positive for: Normal Inspection. Negative for: Cyanosis, Edema Lower Extremity: Positive for: Normal Inspection. Negative for: Edema Neurological: Positive for: GCS=15, Speech Normal Skin: Positive for: Warm, Dry, Normal Color Psychiatric: Positive for: Alert, Oriented x 3, Normal Insight, Normal Concentration - Medications Active Medications: Active Medications Generic Name Dose Route Start Last Admin Trade Name Freq PRN Reason Stop Dose Admin Carvedilol 3.125 mg 08/05/16 18:00 08/05/16 16:59 Coreg PO Not Given BID [facility] Clopidogrel Bisulfate 75 mg 08/06/16 10:00 Plavix PO DAILY [facility] Insulin Human Regular 100 100 mls @ 9 mls/hr 08/05/16 12:01 08/06/16 07:13 units/ Sodium Chloride IV 1.5 units/hr .Q11H7M PRN 1.5 mls/hr TITRATE PER MD ORDER Titration Protocol 9 UNITS/HR Ceftriaxone Sodium 1 gm in 100 mls @ 100 mls/hr 08/05/16 13:30 08/05/16 13:44 Rocephin 1 Gram Ivpb IVPB 100 mls/hr DAILY ERIKA Administration Protocol Potassium Chloride 20 meq/ 1,010 mls @ 150 mls/hr 08/05/16 23:45 08/06/16 06: 17 Dextrose/Sodium Chloride IV 150 mls/hr .[id number] ERIKA Administration Levothyroxine Sodium 125 mcg 08/06/16 07:30 Synthroid PO ACB ERIKA Losartan Potassium 25 mg 08/06/16 10:00 Cozaar PO DAILY ERIKA Non-Formulary Medication 1 tab 08/06/16 10:00 Ezetimibe/Simvastatin [Vytorin 10-40 Mg Tablet] PO DAILY [facility] Ondansetron HCl 4 mg 08/05/16 12:35 08/05/16 21:38 Zofran Inj IVP 4 mg Q4H PRN Administration Nausea/Vomiting Pantoprazole Sodium 40 mg 08/06/16 10:00 Protonix Inj IVP DAILY [facility] Pregabalin 75 mg 08/05/16 22:00 08/05/16 21:12 Lyrica PO 75 mg HS ERIKA Administration Sertraline HCl 50 mg 08/05/16 22:00 08/05/16 21:12 Zoloft PO 50 mg HS ERIKA Administration Vitamin D 400 intlu 08/06/16 10:00 Vitamin D 400 Intl Units Tab PO DAILY ERIKA - Patient Studies Lab Studies: Lab Studies 08/06/16 08/06/16 08/06/16 Range/Units 07:10 06:06 05:30 WBC 21.1 H D (4.5-11.0) 10^3/ul RBC 4.04 (3.5-6.1) 10^6/uL Hgb 10.9 L (12.0-16.0) gm/dL Hct 33.0 L (36.0-48.0) % MCV 81.7 (80.0-105.0) fL MCH 27.0 (25.0-35.0) pg MCHC 33.0 (31.0-37.0) g/dl RDW 14.2 (11.5-14.5) % Plt Count 299 (120.0-450.0) 10^3/uL MPV 10.7 (7.0-11.0) fl Gran % 81.6 H (50.0-68.0) % Lymph % (Auto) 9.9 L (22.0-35.0) % Henry % (Auto) 8.3 H (1.0-6.0) % Eos % (Auto) 0.0 L (1.5-5.0) % Baso % (Auto) 0.2 (0.0-3.0) % Gran # 17.24 H (1.4-6.5) Lymph # 2.1 (1.2-3.4) Henry # 1.8 H (0.1-0.6) Eos # 0.0 (0.0-0.7) Baso # 0.04 (0.0-2.0) K/mm3 pO2 (30-55) mm/Hg VBG pH (7.32-7.43) VBG pCO2 (40-60) VBG HCO3 (21-28) mmol/l VBG Total CO2 (22-28) mmol.L VBG O2 Sat (Calc) (40-65) % VBG Base Excess (0.0-2.0) mmol/L VBG Potassium (3.6-5.2) mmol/L Sodium (132-148) mmol/L Chloride (98-107) mmol/L Glucose (65-105) mg/dl Lactate (0.7-2.1) mmol/L FiO2 % Potassium (3.6-5.0) mmol/L Carbon Dioxide (21-33) mmol/L Anion Gap (10-20) BUN (7-21) mg/dL Creatinine (0.5-1.4) mg/dL Est GFR ( Amer) Est GFR (Non-Af Amer) POC Glucose (mg/dL) 161 H 192 H (65-110) mg/dL Random Glucose (70-110) mg/dL Lactic Acid (0.7-2.1) mmol/L Calcium (8.4-10.5) mg/dL Magnesium (1.7-2.2) mg/dL Amylase (35-125) U/L Lipase (23-300) U/L Venous Blood Potassium (3.6-5.2) mmol/L Urine Color (YELLOW) Urine Appearance (CLEAR) Urine pH (4.7-8.0) Ur Specific [place] (1.005-1.035) Urine Protein (<30 mg/dL) mg/dL Urine Glucose (UA) (NEGATIVE) mg/dL Urine Ketones (NEGATIVE) mg/dL Urine Blood (NEGATIVE) Urine Nitrate (NEGATIVE) Urine Bilirubin (NEGATIVE) Urine Urobilinogen (<1 E.U./dL) E.U./dL Ur Leukocyte Esterase (NEGATIVE) Jesus/uL Alcohol, Quantitative (0-10) mg/dL 08/06/16 08/06/16 08/06/16 Range/Units 05:30 04:56 03:56 WBC (4.5-11.0) 10^3/ul RBC (3.5-6.1) 10^6/uL Hgb (12.0-16.0) gm/dL Hct (36.0-48.0) % MCV (80.0-105.0) fL MCH (25.0-35.0) pg MCHC (31.0-37.0) g/dl RDW (11.5-14.5) % Plt Count (120.0-450.0) 10^3/uL MPV (7.0-11.0) fl Gran % (50.0-68.0) % Lymph % (Auto) (22.0-35.0) % Henry % (Auto) (1.0-6.0) % Eos % (Auto) (1.5-5.0) % Baso % (Auto) (0.0-3.0) % Gran # (1.4-6.5) Lymph # (1.2-3.4) Henry # (0.1-0.6) Eos # (0.0-0.7) Baso # (0.0-2.0) K/mm3 pO2 (30-55) mm/Hg VBG pH (7.32-7.43) VBG pCO2 (40-60) VBG HCO3 (21-28) mmol/l VBG Total CO2 (22-28) mmol.L VBG O2 Sat (Calc) (40-65) % VBG Base Excess (0.0-2.0) mmol/L VBG Potassium (3.6-5.2) mmol/L Sodium 139 (132-148) mmol/L Chloride 113 H (98-107) mmol/L Glucose (65-105) mg/dl Lactate (0.7-2.1) mmol/L FiO2 % Potassium 4.2 (3.6-5.0) mmol/L Carbon Dioxide 20 L (21-33) mmol/L Anion Gap 10 (10-20) BUN 22 H (7-21) mg/dL Creatinine 0.8 (0.5-1.4) mg/dL Est GFR ( Amer) > 60 Est GFR (Non-Af Amer) > 60 POC Glucose (mg/dL) 160 H 140 H (65-110) mg/dL Random Glucose 139 H (70-110) mg/dL Lactic Acid (0.7-2.1) mmol/L Calcium 7.2 L (8.4-10.5) mg/dL Magnesium (1.7-2.2) mg/dL Amylase (35-125) U/L Lipase (23-300) U/L Venous Blood Potassium (3.6-5.2) mmol/L Urine Color (YELLOW) Urine Appearance (CLEAR) Urine pH (4.7-8.0) Ur Specific [place] (1.005-1.035) Urine Protein (<30 mg/dL) mg/dL Urine Glucose (UA) (NEGATIVE) mg/dL Urine Ketones (NEGATIVE) mg/dL Urine Blood (NEGATIVE) Urine Nitrate (NEGATIVE) Urine Bilirubin (NEGATIVE) Urine Urobilinogen (<1 E.U./dL) E.U./dL Ur Leukocyte Esterase (NEGATIVE) Jesus/uL Alcohol, Quantitative (0-10) mg/dL 08/06/16 08/06/16 08/06/16 Range/Units 03:02 02:05 01:04 WBC (4.5-11.0) 10^3/ul RBC (3.5-6.1) 10^6/uL Hgb (12.0-16.0) gm/dL Hct (36.0-48.0) % MCV (80.0-105.0) fL MCH (25.0-35.0) pg MCHC (31.0-37.0) g/dl RDW (11.5-14.5) % Plt Count (120.0-450.0) 10^3/uL MPV (7.0-11.0) fl Gran % (50.0-68.0) % Lymph % (Auto) (22.0-35.0) % Henry % (Auto) (1.0-6.0) % Eos % (Auto) (1.5-5.0) % Baso % (Auto) (0.0-3.0) % Gran # (1.4-6.5) Lymph # (1.2-3.4) Henry # (0.1-0.6) Eos # (0.0-0.7) Baso # (0.0-2.0) K/mm3 pO2 (30-55) mm/Hg VBG pH (7.32-7.43) VBG pCO2 (40-60) VBG HCO3 (21-28) mmol/l VBG Total CO2 (22-28) mmol.L VBG O2 Sat (Calc) (40-65) % VBG Base Excess (0.0-2.0) mmol/L VBG Potassium (3.6-5.2) mmol/L Sodium (132-148) mmol/L Chloride (98-107) mmol/L Glucose (65-105) mg/dl Lactate (0.7-2.1) mmol/L FiO2 % Potassium (3.6-5.0) mmol/L Carbon Dioxide (21-33) mmol/L Anion Gap (10-20) BUN (7-21) mg/dL Creatinine (0.5-1.4) mg/dL Est GFR ( Amer) Est GFR (Non-Af Amer) POC Glucose (mg/dL) 149 H 158 H 180 H (65-110) mg/dL Random Glucose (70-110) mg/dL Lactic Acid (0.7-2.1) mmol/L Calcium (8.4-10.5) mg/dL Magnesium (1.7-2.2) mg/dL Amylase (35-125) U/L Lipase (23-300) U/L Venous Blood Potassium (3.6-5.2) mmol/L Urine Color (YELLOW) Urine Appearance (CLEAR) Urine pH (4.7-8.0) Ur Specific [place] (1.005-1.035) Urine Protein (<30 mg/dL) mg/dL Urine Glucose (UA) (NEGATIVE) mg/dL Urine Ketones (NEGATIVE) mg/dL Urine Blood (NEGATIVE) Urine Nitrate (NEGATIVE) Urine Bilirubin (NEGATIVE) Urine Urobilinogen (<1 E.U./dL) E.U./dL Ur Leukocyte Esterase (NEGATIVE) Jesus/uL Alcohol, Quantitative (0-10) mg/dL 08/06/16 08/06/16 08/05/16 Range/Units 00:20 00:20 23:54 WBC (4.5-11.0) 10^3/ul RBC (3.5-6.1) 10^6/uL Hgb (12.0-16.0) gm/dL Hct (36.0-48.0) % MCV (80.0-105.0) fL MCH (25.0-35.0) pg MCHC (31.0-37.0) g/dl RDW (11.5-14.5) % Plt Count (120.0-450.0) 10^3/uL MPV (7.0-11.0) fl Gran % (50.0-68.0) % Lymph % (Auto) (22.0-35.0) % Henry % (Auto) (1.0-6.0) % Eos % (Auto) (1.5-5.0) % Baso % (Auto) (0.0-3.0) % Gran # (1.4-6.5) Lymph # (1.2-3.4) Henry # (0.1-0.6) Eos # (0.0-0.7) Baso # (0.0-2.0) K/mm3 pO2 58 H (30-55) mm/Hg VBG pH 7.24 L (7.32-7.43) VBG pCO2 42.0 (40-60) VBG HCO3 18.0 L (21-28) mmol/l VBG Total CO2 19.3 L (22-28) mmol.L VBG O2 Sat (Calc) 93.2 H (40-65) % VBG Base Excess -9.0 L (0.0-2.0) mmol/L VBG Potassium 4.3 (3.6-5.2) mmol/L Sodium 141 140.0 (132-148) mmol/L Chloride 114 H 114.0 H (98-107) mmol/L Glucose 134 H (65-105) mg/dl Lactate 0.9 (0.7-2.1) mmol/L FiO2 21.0 % Potassium 4.3 (3.6-5.0) mmol/L Carbon Dioxide 17 L (21-33) mmol/L Anion Gap 14 (10-20) BUN 24 H (7-21) mg/dL Creatinine 0.9 (0.5-1.4) mg/dL Est GFR ( Amer) > 60 Est GFR (Non-Af Amer) > 60 POC Glucose (mg/dL) 150 H (65-110) mg/dL Random Glucose 121 H (70-110) mg/dL Lactic Acid (0.7-2.1) mmol/L Calcium 7.1 L (8.4-10.5) mg/dL Magnesium (1.7-2.2) mg/dL Amylase (35-125) U/L Lipase (23-300) U/L Venous Blood Potassium 4.3 (3.6-5.2) mmol/L Urine Color (YELLOW) Urine Appearance (CLEAR) Urine pH (4.7-8.0) Ur Specific [place] (1.005-1.035) Urine Protein (<30 mg/dL) mg/dL Urine Glucose (UA) (NEGATIVE) mg/dL Urine Ketones (NEGATIVE) mg/dL Urine Blood (NEGATIVE) Urine Nitrate (NEGATIVE) Urine Bilirubin (NEGATIVE) Urine Urobilinogen (<1 E.U./dL) E.U./dL Ur Leukocyte Esterase (NEGATIVE) Jesus/uL Alcohol, Quantitative (0-10) mg/dL 08/05/16 08/05/16 08/05/16 Range/Units 23:05 21:55 20:51 WBC (4.5-11.0) 10^3/ul RBC (3.5-6.1) 10^6/uL Hgb (12.0-16.0) gm/dL Hct (36.0-48.0) % MCV (80.0-105.0) fL MCH (25.0-35.0) pg MCHC (31.0-37.0) g/dl RDW (11.5-14.5) % Plt Count (120.0-450.0) 10^3/uL MPV (7.0-11.0) fl Gran % (50.0-68.0) % Lymph % (Auto) (22.0-35.0) % Henry % (Auto) (1.0-6.0) % Eos % (Auto) (1.5-5.0) % Baso % (Auto) (0.0-3.0) % Gran # (1.4-6.5) Lymph # (1.2-3.4) Henry # (0.1-0.6) Eos # (0.0-0.7) Baso # (0.0-2.0) K/mm3 pO2 (30-55) mm/Hg VBG pH (7.32-7.43) VBG pCO2 (40-60) VBG HCO3 (21-28) mmol/l VBG Total CO2 (22-28) mmol.L VBG O2 Sat (Calc) (40-65) % VBG Base Excess (0.0-2.0) mmol/L VBG Potassium (3.6-5.2) mmol/L Sodium (132-148) mmol/L Chloride (98-107) mmol/L Glucose (65-105) mg/dl Lactate (0.7-2.1) mmol/L FiO2 % Potassium (3.6-5.0) mmol/L Carbon Dioxide (21-33) mmol/L Anion Gap (10-20) BUN (7-21) mg/dL Creatinine (0.5-1.4) mg/dL Est GFR ( Amer) Est GFR (Non-Af Amer) POC Glucose (mg/dL) 122 H 162 H 205 H (65-110) mg/dL Random Glucose (70-110) mg/dL Lactic Acid (0.7-2.1) mmol/L Calcium (8.4-10.5) mg/dL Magnesium (1.7-2.2) mg/dL Amylase (35-125) U/L Lipase (23-300) U/L Venous Blood Potassium (3.6-5.2) mmol/L Urine Color (YELLOW) Urine Appearance (CLEAR) Urine pH (4.7-8.0) Ur Specific [place] (1.005-1.035) Urine Protein (<30 mg/dL) mg/dL Urine Glucose (UA) (NEGATIVE) mg/dL Urine Ketones (NEGATIVE) mg/dL Urine Blood (NEGATIVE) Urine Nitrate (NEGATIVE) Urine Bilirubin (NEGATIVE) Urine Urobilinogen (<1 E.U./dL) E.U./dL Ur Leukocyte Esterase (NEGATIVE) Jesus/uL Alcohol, Quantitative (0-10) mg/dL 08/05/16 08/05/16 08/05/16 Range/Units 20:40 20:40 19:53 WBC (4.5-11.0) 10^3/ul RBC (3.5-6.1) 10^6/uL Hgb (12.0-16.0) gm/dL Hct (36.0-48.0) % MCV (80.0-105.0) fL MCH (25.0-35.0) pg MCHC (31.0-37.0) g/dl RDW (11.5-14.5) % Plt Count (120.0-450.0) 10^3/uL MPV (7.0-11.0) fl Gran % (50.0-68.0) % Lymph % (Auto) (22.0-35.0) % Henry % (Auto) (1.0-6.0) % Eos % (Auto) (1.5-5.0) % Baso % (Auto) (0.0-3.0) % Gran # (1.4-6.5) Lymph # (1.2-3.4) Henry # (0.1-0.6) Eos # (0.0-0.7) Baso # (0.0-2.0) K/mm3 pO2 30 (30-55) mm/Hg VBG pH 7.18 L* (7.32-7.43) VBG pCO2 56.0 (40-60) VBG HCO3 20.9 L (21-28) mmol/l VBG Total CO2 22.6 (22-28) mmol.L VBG O2 Sat (Calc) 58.7 (40-65) % VBG Base Excess -7.8 L (0.0-2.0) mmol/L VBG Potassium 4.4 (3.6-5.2) mmol/L Sodium 140.0 140 (132-148) mmol/L Chloride 112.0 H 110 H (98-107) mmol/L Glucose 209 H (65-105) mg/dl Lactate 2.7 H (0.7-2.1) mmol/L FiO2 21.0 % Potassium 4.4 (3.6-5.0) mmol/L Carbon Dioxide 19 L (21-33) mmol/L Anion Gap 15 (10-20) BUN 30 H (7-21) mg/dL Creatinine 1.1 (0.5-1.4) mg/dL Est GFR ( Amer) > 60 Est GFR (Non-Af Amer) 50 POC Glucose (mg/dL) 383 H (65-110) mg/dL Random Glucose 190 H (70-110) mg/dL Lactic Acid (0.7-2.1) mmol/L Calcium 7.5 L (8.4-10.5) mg/dL Magnesium (1.7-2.2) mg/dL Amylase (35-125) U/L Lipase (23-300) U/L Venous Blood Potassium 4.4 (3.6-5.2) mmol/L Urine Color (YELLOW) Urine Appearance (CLEAR) Urine pH (4.7-8.0) Ur Specific [place] (1.005-1.035) Urine Protein (<30 mg/dL) mg/dL Urine Glucose (UA) (NEGATIVE) mg/dL Urine Ketones (NEGATIVE) mg/dL Urine Blood (NEGATIVE) Urine Nitrate (NEGATIVE) Urine Bilirubin (NEGATIVE) Urine Urobilinogen (<1 E.U./dL) E.U./dL Ur Leukocyte Esterase (NEGATIVE) Jesus/uL Alcohol, Quantitative (0-10) mg/dL 08/05/16 08/05/16 08/05/16 Range/Units 19:03 18:34 17:10 WBC (4.5-11.0) 10^3/ul RBC (3.5-6.1) 10^6/uL Hgb (12.0-16.0) gm/dL Hct (36.0-48.0) % MCV (80.0-105.0) fL MCH (25.0-35.0) pg MCHC (31.0-37.0) g/dl RDW (11.5-14.5) % Plt Count (120.0-450.0) 10^3/uL MPV (7.0-11.0) fl Gran % (50.0-68.0) % Lymph % (Auto) (22.0-35.0) % Henry % (Auto) (1.0-6.0) % Eos % (Auto) (1.5-5.0) % Baso % (Auto) (0.0-3.0) % Gran # (1.4-6.5) Lymph # (1.2-3.4) Henry # (0.1-0.6) Eos # (0.0-0.7) Baso # (0.0-2.0) K/mm3 pO2 (30-55) mm/Hg VBG pH (7.32-7.43) VBG pCO2 (40-60) VBG HCO3 (21-28) mmol/l VBG Total CO2 (22-28) mmol.L VBG O2 Sat (Calc) (40-65) % VBG Base Excess (0.0-2.0) mmol/L VBG Potassium (3.6-5.2) mmol/L Sodium (132-148) mmol/L Chloride (98-107) mmol/L Glucose (65-105) mg/dl Lactate (0.7-2.1) mmol/L FiO2 % Potassium (3.6-5.0) mmol/L Carbon Dioxide (21-33) mmol/L Anion Gap (10-20) BUN (7-21) mg/dL Creatinine (0.5-1.4) mg/dL Est GFR ( Amer) Est GFR (Non-Af Amer) POC Glucose (mg/dL) 281 H 285 H 390 H (65-110) mg/dL Random Glucose (70-110) mg/dL Lactic Acid (0.7-2.1) mmol/L Calcium (8.4-10.5) mg/dL Magnesium (1.7-2.2) mg/dL Amylase (35-125) U/L Lipase (23-300) U/L Venous Blood Potassium (3.6-5.2) mmol/L Urine Color (YELLOW) Urine Appearance (CLEAR) Urine pH (4.7-8.0) Ur Specific [place] (1.005-1.035) Urine Protein (<30 mg/dL) mg/dL Urine Glucose (UA) (NEGATIVE) mg/dL Urine Ketones (NEGATIVE) mg/dL Urine Blood (NEGATIVE) Urine Nitrate (NEGATIVE) Urine Bilirubin (NEGATIVE) Urine Urobilinogen (<1 E.U./dL) E.U./dL Ur Leukocyte Esterase (NEGATIVE) Jesus/uL Alcohol, Quantitative (0-10) mg/dL 08/05/16 08/05/16 08/05/16 Range/Units 16:07 15:50 15:50 WBC (4.5-11.0) 10^3/ul RBC (3.5-6.1) 10^6/uL Hgb (12.0-16.0) gm/dL Hct (36.0-48.0) % MCV (80.0-105.0) fL MCH (25.0-35.0) pg MCHC (31.0-37.0) g/dl RDW (11.5-14.5) % Plt Count (120.0-450.0) 10^3/uL MPV (7.0-11.0) fl Gran % (50.0-68.0) % Lymph % (Auto) (22.0-35.0) % Henry % (Auto) (1.0-6.0) % Eos % (Auto) (1.5-5.0) % Baso % (Auto) (0.0-3.0) % Gran # (1.4-6.5) Lymph # (1.2-3.4) Henry # (0.1-0.6) Eos # (0.0-0.7) Baso # (0.0-2.0) K/mm3 pO2 30 (30-55) mm/Hg VBG pH 7.04 L* (7.32-7.43) VBG pCO2 39.0 L (40-60) VBG HCO3 10.5 L (21-28) mmol/l VBG Total CO2 11.7 L (22-28) mmol.L VBG O2 Sat (Calc) 55.0 (40-65) % VBG Base Excess -19.5 L (0.0-2.0) mmol/L VBG Potassium 4.7 (3.6-5.2) mmol/L Sodium 137.0 136 (132-148) mmol/L Chloride 103.0 103 (98-107) mmol/L Glucose 550 H* D (65-105) mg/dl Lactate 2.2 H (0.7-2.1) mmol/L FiO2 21.0 % Potassium 4.4 (3.6-5.0) mmol/L Carbon Dioxide 10 L (21-33) mmol/L Anion Gap 27 H (10-20) BUN 33 H (7-21) mg/dL Creatinine 1.5 H (0.5-1.4) mg/dL Est GFR ( Amer) 43 Est GFR (Non-Af Amer) 35 POC Glucose (mg/dL) 488 H* (65-110) mg/dL Random Glucose 588 H* D (70-110) mg/dL Lactic Acid (0.7-2.1) mmol/L Calcium 8.1 L (8.4-10.5) mg/dL Magnesium (1.7-2.2) mg/dL Amylase (35-125) U/L Lipase (23-300) U/L Venous Blood Potassium 4.7 (3.6-5.2) mmol/L Urine Color (YELLOW) Urine Appearance (CLEAR) Urine pH (4.7-8.0) Ur Specific [place] (1.005-1.035) Urine Protein (<30 mg/dL) mg/dL Urine Glucose (UA) (NEGATIVE) mg/dL Urine Ketones (NEGATIVE) mg/dL Urine Blood (NEGATIVE) Urine Nitrate (NEGATIVE) Urine Bilirubin (NEGATIVE) Urine Urobilinogen (<1 E.U./dL) E.U./dL Ur Leukocyte Esterase (NEGATIVE) Jesus/uL Alcohol, Quantitative (0-10) mg/dL 08/05/16 08/05/16 08/05/16 Range/Units 15:15 15:15 15:00 WBC (4.5-11.0) 10^3/ul RBC (3.5-6.1) 10^6/uL Hgb (12.0-16.0) gm/dL Hct (36.0-48.0) % MCV (80.0-105.0) fL MCH (25.0-35.0) pg MCHC (31.0-37.0) g/dl RDW (11.5-14.5) % Plt Count (120.0-450.0) 10^3/uL MPV (7.0-11.0) fl Gran % (50.0-68.0) % Lymph % (Auto) (22.0-35.0) % Henry % (Auto) (1.0-6.0) % Eos % (Auto) (1.5-5.0) % Baso % (Auto) (0.0-3.0) % Gran # (1.4-6.5) Lymph # (1.2-3.4) Henry # (0.1-0.6) Eos # (0.0-0.7) Baso # (0.0-2.0) K/mm3 pO2 (30-55) mm/Hg VBG pH (7.32-7.43) VBG pCO2 (40-60) VBG HCO3 (21-28) mmol/l VBG Total CO2 (22-28) mmol.L VBG O2 Sat (Calc) (40-65) % VBG Base Excess (0.0-2.0) mmol/L VBG Potassium (3.6-5.2) mmol/L Sodium (132-148) mmol/L Chloride (98-107) mmol/L Glucose (65-105) mg/dl Lactate (0.7-2.1) mmol/L FiO2 % Potassium (3.6-5.0) mmol/L Carbon Dioxide (21-33) mmol/L Anion Gap (10-20) BUN (7-21) mg/dL Creatinine (0.5-1.4) mg/dL Est GFR ( Amer) Est GFR (Non-Af Amer) POC Glucose (mg/dL) (65-110) mg/dL Random Glucose (70-110) mg/dL Lactic Acid 1.7 (0.7-2.1) mmol/L Calcium (8.4-10.5) mg/dL Magnesium (1.7-2.2) mg/dL Amylase (35-125) U/L Lipase (23-300) U/L Venous Blood Potassium (3.6-5.2) mmol/L Urine Color Yellow (YELLOW) Urine Appearance Clear (CLEAR) Urine pH 5.5 (4.7-8.0) Ur Specific [place] >= 1.030 (1.005-1.035) Urine Protein Negative (<30 mg/dL) mg/dL Urine Glucose (UA) >=1000 (NEGATIVE) mg/dL Urine Ketones 15 H (NEGATIVE) mg/dL Urine Blood Negative (NEGATIVE) Urine Nitrate Negative (NEGATIVE) Urine Bilirubin Moderate H (NEGATIVE) Urine Urobilinogen 0.2 (<1 E.U./dL) E.U./dL Ur Leukocyte Esterase Negative (NEGATIVE) Jesus/uL Alcohol, Quantitative < 10 (0-10) mg/dL 08/05/16 08/05/16 08/05/16 Range/Units 14:56 14:20 12:47 WBC (4.5-11.0) 10^3/ul RBC (3.5-6.1) 10^6/uL Hgb (12.0-16.0) gm/dL Hct (36.0-48.0) % MCV (80.0-105.0) fL MCH (25.0-35.0) pg MCHC (31.0-37.0) g/dl RDW (11.5-14.5) % Plt Count (120.0-450.0) 10^3/uL MPV (7.0-11.0) fl Gran % (50.0-68.0) % Lymph % (Auto) (22.0-35.0) % Henry % (Auto) (1.0-6.0) % Eos % (Auto) (1.5-5.0) % Baso % (Auto) (0.0-3.0) % Gran # (1.4-6.5) Lymph # (1.2-3.4) Henry # (0.1-0.6) Eos # (0.0-0.7) Baso # (0.0-2.0) K/mm3 pO2 (30-55) mm/Hg VBG pH (7.32-7.43) VBG pCO2 (40-60) VBG HCO3 (21-28) mmol/l VBG Total CO2 (22-28) mmol.L VBG O2 Sat (Calc) (40-65) % VBG Base Excess (0.0-2.0) mmol/L VBG Potassium (3.6-5.2) mmol/L Sodium (132-148) mmol/L Chloride (98-107) mmol/L Glucose (65-105) mg/dl Lactate (0.7-2.1) mmol/L FiO2 % Potassium (3.6-5.0) mmol/L Carbon Dioxide (21-33) mmol/L Anion Gap (10-20) BUN (7-21) mg/dL Creatinine (0.5-1.4) mg/dL Est GFR ( Amer) Est GFR (Non-Af Amer) POC Glucose (mg/dL) 487 H* (65-110) mg/dL Random Glucose (70-110) mg/dL Lactic Acid (0.7-2.1) mmol/L Calcium (8.4-10.5) mg/dL Magnesium 2.2 (1.7-2.2) mg/dL Amylase 48 (35-125) U/L Lipase 55 (23-300) U/L Venous Blood Potassium (3.6-5.2) mmol/L Urine Color (YELLOW) Urine Appearance (CLEAR) Urine pH (4.7-8.0) Ur Specific [place] (1.005-1.035) Urine Protein (<30 mg/dL) mg/dL Urine Glucose (UA) (NEGATIVE) mg/dL Urine Ketones (NEGATIVE) mg/dL Urine Blood (NEGATIVE) Urine Nitrate (NEGATIVE) Urine Bilirubin (NEGATIVE) Urine Urobilinogen (<1 E.U./dL) E.U./dL Ur Leukocyte Esterase (NEGATIVE) Jesus/uL Alcohol, Quantitative (0-10) mg/dL Laboratory Results - last 24 hr 08/05/16 08/05/16 08/05/16 12:47 14:20 14:56 WBC RBC Hgb Hct MCV MCH MCHC RDW Plt Count MPV Gran % Lymph % (Auto) Henry % (Auto) Eos % (Auto) Baso % (Auto) Gran # Lymph # Henry # Eos # Baso # pO2 VBG pH VBG pCO2 VBG HCO3 VBG Total CO2 VBG O2 Sat (Calc) VBG Base Excess VBG Potassium Sodium Chloride Glucose Lactate FiO2 Potassium Carbon Dioxide Anion Gap BUN Creatinine Est GFR ( Amer) Est GFR (Non-Af Amer) POC Glucose (mg/dL) 487 H* Random Glucose Lactic Acid Calcium Magnesium 2.2 Amylase 48 Lipase 55 Venous Blood Potassium Urine Color Urine Appearance Urine pH Ur Specific [place] Urine Protein Urine Glucose (UA) Urine Ketones Urine Blood Urine Nitrate Urine Bilirubin Urine Urobilinogen Ur Leukocyte Esterase Alcohol, Quantitative 08/05/16 08/05/16 08/05/16 15:00 15:15 15:15 WBC RBC Hgb Hct MCV MCH MCHC RDW Plt Count MPV Gran % Lymph % (Auto) Henry % (Auto) Eos % (Auto) Baso % (Auto) Gran # Lymph # Henry # Eos # Baso # pO2 VBG pH VBG pCO2 VBG HCO3 VBG Total CO2 VBG O2 Sat (Calc) VBG Base Excess VBG Potassium Sodium Chloride Glucose Lactate FiO2 Potassium Carbon Dioxide Anion Gap BUN Creatinine Est GFR ( Amer) Est GFR (Non-Af Amer) POC Glucose (mg/dL) Random Glucose Lactic Acid 1.7 Calcium Magnesium Amylase Lipase Venous Blood Potassium Urine Color Yellow Urine Appearance Clear Urine pH 5.5 Ur Specific [place] >= 1.030 Urine Protein Negative Urine Glucose (UA) >=1000 Urine Ketones 15 H Urine Blood Negative Urine Nitrate Negative Urine Bilirubin Moderate H Urine Urobilinogen 0.2 Ur Leukocyte Esterase Negative Alcohol, Quantitative < 10 08/05/16 08/05/16 08/05/16 15:50 15:50 16:07 WBC RBC Hgb Hct MCV MCH MCHC RDW Plt Count MPV Gran % Lymph % (Auto) Henry % (Auto) Eos % (Auto) Baso % (Auto) Gran # Lymph # Henry # Eos # Baso # pO2 30 VBG pH 7.04 L* VBG pCO2 39.0 L VBG HCO3 10.5 L VBG Total CO2 11.7 L VBG O2 Sat (Calc) 55.0 VBG Base Excess -19.5 L VBG Potassium 4.7 Sodium 136 137.0 Chloride 103 103.0 Glucose 550 H* D Lactate 2.2 H FiO2 21.0 Potassium 4.4 Carbon Dioxide 10 L Anion Gap 27 H BUN 33 H Creatinine 1.5 H Est GFR ( Amer) 43 Est GFR (Non-Af Amer) 35 POC Glucose (mg/dL) 488 H* Random Glucose 588 H* D Lactic Acid Calcium 8.1 L Magnesium Amylase Lipase Venous Blood Potassium 4.7 Urine Color Urine Appearance Urine pH Ur Specific [place] Urine Protein Urine Glucose (UA) Urine Ketones Urine Blood Urine Nitrate Urine Bilirubin Urine Urobilinogen Ur Leukocyte Esterase Alcohol, Quantitative 08/05/16 08/05/16 08/05/16 17:10 18:34 19:03 WBC RBC Hgb Hct MCV MCH MCHC RDW Plt Count MPV Gran % Lymph % (Auto) Henry % (Auto) Eos % (Auto) Baso % (Auto) Gran # Lymph # Henry # Eos # Baso # pO2 VBG pH VBG pCO2 VBG HCO3 VBG Total CO2 VBG O2 Sat (Calc) VBG Base Excess VBG Potassium Sodium Chloride Glucose Lactate FiO2 Potassium Carbon Dioxide Anion Gap BUN Creatinine Est GFR ( Amer) Est GFR (Non-Af Amer) POC Glucose (mg/dL) 390 H 285 H 281 H Random Glucose Lactic Acid Calcium Magnesium Amylase Lipase Venous Blood Potassium Urine Color Urine Appearance Urine pH Ur Specific [place] Urine Protein Urine Glucose (UA) Urine Ketones Urine Blood Urine Nitrate Urine Bilirubin Urine Urobilinogen Ur Leukocyte Esterase Alcohol, Quantitative 08/05/16 08/05/16 08/05/16 19:53 20:40 20:40 WBC RBC Hgb Hct MCV MCH MCHC RDW Plt Count MPV Gran % Lymph % (Auto) Henry % (Auto) Eos % (Auto) Baso % (Auto) Gran # Lymph # Henry # Eos # Baso # pO2 30 VBG pH 7.18 L* VBG pCO2 56.0 VBG HCO3 20.9 L VBG Total CO2 22.6 VBG O2 Sat (Calc) 58.7 VBG Base Excess -7.8 L VBG Potassium 4.4 Sodium 140 140.0 Chloride 110 H 112.0 H Glucose 209 H Lactate 2.7 H FiO2 21.0 Potassium 4.4 Carbon Dioxide 19 L Anion Gap 15 BUN 30 H Creatinine 1.1 Est GFR ( Amer) > 60 Est GFR (Non-Af Amer) 50 POC Glucose (mg/dL) 383 H Random Glucose 190 H Lactic Acid Calcium 7.5 L Magnesium Amylase Lipase Venous Blood Potassium 4.4 Urine Color Urine Appearance Urine pH Ur Specific [place] Urine Protein Urine Glucose (UA) Urine Ketones Urine Blood Urine Nitrate Urine Bilirubin Urine Urobilinogen Ur Leukocyte Esterase Alcohol, Quantitative 08/05/16 08/05/16 08/05/16 20:51 21:55 23:05 WBC RBC Hgb Hct MCV MCH MCHC RDW Plt Count MPV Gran % Lymph % (Auto) Henry % (Auto) Eos % (Auto) Baso % (Auto) Gran # Lymph # Henry # Eos # Baso # pO2 VBG pH VBG pCO2 VBG HCO3 VBG Total CO2 VBG O2 Sat (Calc) VBG Base Excess VBG Potassium Sodium Chloride Glucose Lactate FiO2 Potassium Carbon Dioxide Anion Gap BUN Creatinine Est GFR ( Amer) Est GFR (Non-Af Amer) POC Glucose (mg/dL) 205 H 162 H 122 H Random Glucose Lactic Acid Calcium Magnesium Amylase Lipase Venous Blood Potassium Urine Color Urine Appearance Urine pH Ur Specific [place] Urine Protein Urine Glucose (UA) Urine Ketones Urine Blood Urine Nitrate Urine Bilirubin Urine Urobilinogen Ur Leukocyte Esterase Alcohol, Quantitative 08/05/16 08/06/16 08/06/16 23:54 00:20 00:20 WBC RBC Hgb Hct MCV MCH MCHC RDW Plt Count MPV Gran % Lymph % (Auto) Henry % (Auto) Eos % (Auto) Baso % (Auto) Gran # Lymph # Henry # Eos # Baso # pO2 58 H VBG pH 7.24 L VBG pCO2 42.0 VBG HCO3 18.0 L VBG Total CO2 19.3 L VBG O2 Sat (Calc) 93.2 H VBG Base Excess -9.0 L VBG Potassium 4.3 Sodium 140.0 141 Chloride 114.0 H 114 H Glucose 134 H Lactate 0.9 FiO2 21.0 Potassium 4.3 Carbon Dioxide 17 L Anion Gap 14 BUN 24 H Creatinine 0.9 Est GFR ( Amer) > 60 Est GFR (Non-Af Amer) > 60 POC Glucose (mg/dL) 150 H Random Glucose 121 H Lactic Acid Calcium 7.1 L Magnesium Amylase Lipase Venous Blood Potassium 4.3 Urine Color Urine Appearance Urine pH Ur Specific [place] Urine Protein Urine Glucose (UA) Urine Ketones Urine Blood Urine Nitrate Urine Bilirubin Urine Urobilinogen Ur Leukocyte Esterase Alcohol, Quantitative 08/06/16 08/06/16 08/06/16 01:04 02:05 03:02 WBC RBC Hgb Hct MCV MCH MCHC RDW Plt Count MPV Gran % Lymph % (Auto) Henry % (Auto) Eos % (Auto) Baso % (Auto) Gran # Lymph # Henry # Eos # Baso # pO2 VBG pH VBG pCO2 VBG HCO3 VBG Total CO2 VBG O2 Sat (Calc) VBG Base Excess VBG Potassium Sodium Chloride Glucose Lactate FiO2 Potassium Carbon Dioxide Anion Gap BUN Creatinine Est GFR ( Amer) Est GFR (Non-Af Amer) POC Glucose (mg/dL) 180 H 158 H 149 H Random Glucose Lactic Acid Calcium Magnesium Amylase Lipase Venous Blood Potassium Urine Color Urine Appearance Urine pH Ur Specific [place] Urine Protein Urine Glucose (UA) Urine Ketones Urine Blood Urine Nitrate Urine Bilirubin Urine Urobilinogen Ur Leukocyte Esterase Alcohol, Quantitative 08/06/16 08/06/16 08/06/16 03:56 04:56 05:30 WBC RBC Hgb Hct MCV MCH MCHC RDW Plt Count MPV Gran % Lymph % (Auto) Henry % (Auto) Eos % (Auto) Baso % (Auto) Gran # Lymph # Henry # Eos # Baso # pO2 VBG pH VBG pCO2 VBG HCO3 VBG Total CO2 VBG O2 Sat (Calc) VBG Base Excess VBG Potassium Sodium 139 Chloride 113 H Glucose Lactate FiO2 Potassium 4.2 Carbon Dioxide 20 L Anion Gap 10 BUN 22 H Creatinine 0.8 Est GFR ( Amer) > 60 Est GFR (Non-Af Amer) > 60 POC Glucose (mg/dL) 140 H 160 H Random Glucose 139 H Lactic Acid Calcium 7.2 L Magnesium Amylase Lipase Venous Blood Potassium Urine Color Urine Appearance Urine pH Ur Specific [place] Urine Protein Urine Glucose (UA) Urine Ketones Urine Blood Urine Nitrate Urine Bilirubin Urine Urobilinogen Ur Leukocyte Esterase Alcohol, Quantitative 08/06/16 08/06/16 08/06/16 05:30 06:06 07:10 WBC 21.1 H D RBC 4.04 Hgb 10.9 L Hct 33.0 L MCV 81.7 MCH 27.0 MCHC 33.0 RDW 14.2 Plt Count 299 MPV 10.7 Gran % 81.6 H Lymph % (Auto) 9.9 L Henry % (Auto) 8.3 H Eos % (Auto) 0.0 L Baso % (Auto) 0.2 Gran # 17.24 H Lymph # 2.1 Henry # 1.8 H Eos # 0.0 Baso # 0.04 pO2 VBG pH VBG pCO2 VBG HCO3 VBG Total CO2 VBG O2 Sat (Calc) VBG Base Excess VBG Potassium Sodium Chloride Glucose Lactate FiO2 Potassium Carbon Dioxide Anion Gap BUN Creatinine Est GFR ( Amer) Est GFR (Non-Af Amer) POC Glucose (mg/dL) 192 H 161 H Random Glucose Lactic Acid Calcium Magnesium Amylase Lipase Venous Blood Potassium Urine Color Urine Appearance Urine pH Ur Specific [place] Urine Protein Urine Glucose (UA) Urine Ketones Urine Blood Urine Nitrate Urine Bilirubin Urine Urobilinogen Ur Leukocyte Esterase Alcohol, Quantitative Fingerstick Blood Sugar Results: 192 Review of Systems - Review of Systems All systems: reviewed and no additional remarkable complaints except Critical Care Progress Note - Prophylaxis GI Prophylaxis GI: PPI - Nutrition Nutrition: Nutrition Category Date Time Status Consistent Carbohydrate [DIET] Diets 08/06/16 Breakfast Ordered Assessment/Plan - Assessment and Plan (Free Text) Assessment: This is a 60F with a PMH of poorly controlled DM1, Diabetic Nephropathy, Hypothyroidism, HTN, HLD, TIA, insomnia and anxiety presenting with DKA. Neuro: No acute processes present CV: Hemodynamicaly stable, Continue control of HLD with Ezetimibe/simvastatin hx of tia will continue plavix, Continue coreg and losartan for HTN Pulm: COPD, duoneb, brovana, pulmicort GI: Start regular diet Endo: Anion gap 10, goal to maintain euglycemia, regular diet, transition to subq insulin, monitor electrolytes replete as needed, continue IVF. : No active pathology Heme: WBC increased from 17.2-->21.1 possibly reactive, however will check prolactin and empirical rocephin ID: No active source of infection identified Psych: HX of anxiety, will continue sertraline D/W Dr. Yumiko Luong PGY-1 <Yumiko ZHU,Inamul H - Last Filed: 08/06/16 12:34> CCU Objective - Vital Signs / Intake & Output Vital Signs (Last 4 hours): Vital Signs Temp Pulse Resp BP Pulse Ox 08/06/16 12:00 97.6 F 89 26 H 107/49 L 96 08/06/16 11:00 89 28 H 111/54 L 95 08/06/16 10:45 92 H 115/55 L 08/06/16 10:40 115/55 L 95 08/06/16 10:38 92 H 115/55 L 08/06/16 10:00 91 H 22 93 L 08/06/16 09:20 95 H 32 H 111/45 L 88 L 08/06/16 09:00 97 H 33 H 93 L Intake and Output (Last 8hrs): Intake & Output 08/05/16 08/06/16 08/06/16 22:59 06:59 14:59 Intake Total 7524.5 1709.0 5.0 Output Total 910 200 Balance 6614.5 1509.0 5.0 Weight 196 lb Intake: IV 2424.5 1709.0 5.0 lac 2400 1700 Other 5100 Output: Urine 900 200 Urine, Voided 900 200 Emesis 10 Other: Voiding Method Bedpan Bedpan # Voids Urine, Voided 1 1 # Bowel Movements 1 - Medications Active Medications: Active Medications Generic Name Dose Route Start Last Admin Trade Name Freq PRN Reason Stop Dose Admin Acetaminophen 650 mg 08/06/16 10:58 08/06/16 11:06 Tylenol 325mg Tab PO 650 mg Q6H PRN Administration Pain, Mild (1-3) Albuterol/Ipratropium 3 ml 08/06/16 09:41 Duoneb 3 Mg/0.5 Mg (3 Ml) Ud IH Q2H PRN Shortness of Breath Albuterol/Ipratropium 3 ml 08/06/16 14:00 Duoneb 3 Mg/0.5 Mg (3 Ml) Ud IH [id number] ERIKA Arformoterol Tartrate 15 mcg 08/06/16 20:00 Brovana IH [id number] ERIKA Budesonide 0.25 mg 08/06/16 20:00 Pulmicort Respules IH [id number] ERIKA Carvedilol 3.125 mg 08/05/16 18:00 08/06/16 10:38 Coreg PO 3.125 mg BID ERIKA Administration Clopidogrel Bisulfate 75 mg 08/06/16 10:00 08/06/16 10:38 Plavix PO 75 mg DAILY ERIKA Administration Insulin Human Regular 100 100 mls @ 9 mls/hr 08/05/16 12:01 08/06/16 11:45 units/ Sodium Chloride IV 0 units/hr .[id number] PRN 0 mls/hr TITRATE PER MD ORDER Titration Protocol 9 UNITS/HR Ceftriaxone Sodium 1 gm in 100 mls @ 100 mls/hr 08/05/16 13:30 08/06/16 10:36 Rocephin 1 Gram Ivpb IVPB 100 mls/hr DAILY ERIKA Administration Protocol Potassium Chloride 20 meq/ 1,010 mls @ 150 mls/hr 08/05/16 23:45 08/06/16 06: 17 Dextrose/Sodium Chloride IV 150 mls/hr .[id number] ERIKA Administration Doxycycline Hyclate 100 mg/ 100 mls @ 100 mls/hr 08/06/16 10:15 08/06/16 11: 14 Sodium Chloride IVPB 100 mls/hr Q12 ERIKA Administration Protocol Insulin Detemir 30 unit 08/06/16 10:00 08/06/16 10:37 Levemir SC 30 unit DAILY ERIKA Administration Insulin Human Regular 0 units 08/06/16 09:45 08/06/16 10:31 Humulin R Low SC 1 units Q4H ERIKA Administration Protocol Levothyroxine Sodium 125 mcg 08/06/16 10:00 08/06/16 10:45 Synthroid PO Not Given DAILY ERIKA Losartan Potassium 25 mg 08/06/16 10:00 08/06/16 10:45 Cozaar PO 25 mg DAILY ERIKA Administration Non-Formulary Medication 1 tab 08/06/16 10:00 Ezetimibe/Simvastatin [Vytorin 10-40 Mg Tablet] PO DAILY ERIKA Ondansetron HCl 4 mg 08/05/16 12:35 08/05/16 21:38 Zofran Inj IVP 4 mg Q4H PRN Administration Nausea/Vomiting Pantoprazole Sodium 40 mg 08/06/16 10:00 08/06/16 10:36 Protonix Inj IVP 40 mg DAILY ERIKA Administration Pregabalin 75 mg 08/05/16 22:00 08/05/16 21:12 Lyrica PO 75 mg HS ERIKA Administration Sertraline HCl 50 mg 08/05/16 22:00 08/05/16 21:12 Zoloft PO 50 mg HS ERIKA Administration Vitamin D 400 intlu 08/06/16 10:00 08/06/16 10:41 Vitamin D 400 Intl Units Tab PO 400 intlu DAILY ERIKA Administration - Patient Studies Lab Studies: Lab Studies 08/06/16 08/06/16 08/06/16 Range/Units 12:00 09:00 09:00 WBC (4.5-11.0) 10^3/ul RBC (3.5-6.1) 10^6/uL Hgb (12.0-16.0) gm/dL Hct (36.0-48.0) % MCV (80.0-105.0) fL MCH (25.0-35.0) pg MCHC (31.0-37.0) g/dl RDW (11.5-14.5) % Plt Count (120.0-450.0) 10^3/uL MPV (7.0-11.0) fl Gran % (50.0-68.0) % Lymph % (Auto) (22.0-35.0) % Henry % (Auto) (1.0-6.0) % Eos % (Auto) (1.5-5.0) % Baso % (Auto) (0.0-3.0) % Gran # (1.4-6.5) Lymph # (1.2-3.4) Henry # (0.1-0.6) Eos # (0.0-0.7) Baso # (0.0-2.0) K/mm3 pO2 (30-55) mm/Hg VBG pH (7.32-7.43) VBG pCO2 (40-60) VBG HCO3 (21-28) mmol/l VBG Total CO2 (22-28) mmol.L VBG O2 Sat (Calc) (40-65) % VBG Base Excess (0.0-2.0) mmol/L VBG Potassium (3.6-5.2) mmol/L Sodium 137 138 (132-148) mmol/L Chloride 112 H 112 H (98-107) mmol/L Glucose (65-105) mg/dl Lactate (0.7-2.1) mmol/L FiO2 % Potassium 4.0 4.2 (3.6-5.0) mmol/L Carbon Dioxide 20 L 20 L (21-33) mmol/L Anion Gap 9 L 10 (10-20) BUN 17 19 (7-21) mg/dL Creatinine 0.7 0.7 (0.5-1.4) mg/dL Est GFR ( Amer) > 60 > 60 Est GFR (Non-Af Amer) > 60 > 60 POC Glucose (mg/dL) (65-110) mg/dL Random Glucose 157 H 152 H (70-110) mg/dL Hemoglobin A1c (4.2-6.5) % Lactic Acid (0.7-2.1) mmol/L Calcium 7.3 L 7.3 L (8.4-10.5) mg/dL Magnesium (1.7-2.2) mg/dL Amylase (35-125) U/L Lipase (23-300) U/L TSH 3rd Generation 0.08 L (0.46-4.68) mIU/mL Venous Blood Potassium (3.6-5.2) mmol/L Urine Color (YELLOW) Urine Appearance (CLEAR) Urine pH (4.7-8.0) Ur Specific [place] (1.005-1.035) Urine Protein (<30 mg/dL) mg/dL Urine Glucose (UA) (NEGATIVE) mg/dL Urine Ketones (NEGATIVE) mg/dL Urine Blood (NEGATIVE) Urine Nitrate (NEGATIVE) Urine Bilirubin (NEGATIVE) Urine Urobilinogen (<1 E.U./dL) E.U./dL Ur Leukocyte Esterase (NEGATIVE) Jesus/uL Alcohol, Quantitative (0-10) mg/dL 08/06/16 08/06/16 08/06/16 Range/Units 07:10 06:06 05:30 WBC 21.1 H D (4.5-11.0) 10^3/ul RBC 4.04 (3.5-6.1) 10^6/uL Hgb 10.9 L (12.0-16.0) gm/dL Hct 33.0 L (36.0-48.0) % MCV 81.7 (80.0-105.0) fL MCH 27.0 (25.0-35.0) pg MCHC 33.0 (31.0-37.0) g/dl RDW 14.2 (11.5-14.5) % Plt Count 299 (120.0-450.0) 10^3/uL MPV 10.7 (7.0-11.0) fl Gran % 81.6 H (50.0-68.0) % Lymph % (Auto) 9.9 L (22.0-35.0) % Henry % (Auto) 8.3 H (1.0-6.0) % Eos % (Auto) 0.0 L (1.5-5.0) % Baso % (Auto) 0.2 (0.0-3.0) % Gran # 17.24 H (1.4-6.5) Lymph # 2.1 (1.2-3.4) Henry # 1.8 H (0.1-0.6) Eos # 0.0 (0.0-0.7) Baso # 0.04 (0.0-2.0) K/mm3 pO2 (30-55) mm/Hg VBG pH (7.32-7.43) VBG pCO2 (40-60) VBG HCO3 (21-28) mmol/l VBG Total CO2 (22-28) mmol.L VBG O2 Sat (Calc) (40-65) % VBG Base Excess (0.0-2.0) mmol/L VBG Potassium (3.6-5.2) mmol/L Sodium (132-148) mmol/L Chloride (98-107) mmol/L Glucose (65-105) mg/dl Lactate (0.7-2.1) mmol/L FiO2 % Potassium (3.6-5.0) mmol/L Carbon Dioxide (21-33) mmol/L Anion Gap (10-20) BUN (7-21) mg/dL Creatinine (0.5-1.4) mg/dL Est GFR ( Amer) Est GFR (Non-Af Amer) POC Glucose (mg/dL) 161 H 192 H (65-110) mg/dL Random Glucose (70-110) mg/dL Hemoglobin A1c (4.2-6.5) % Lactic Acid (0.7-2.1) mmol/L Calcium (8.4-10.5) mg/dL Magnesium (1.7-2.2) mg/dL Amylase (35-125) U/L Lipase (23-300) U/L TSH 3rd Generation (0.46-4.68) mIU/mL Venous Blood Potassium (3.6-5.2) mmol/L Urine Color (YELLOW) Urine Appearance (CLEAR) Urine pH (4.7-8.0) Ur Specific [place] (1.005-1.035) Urine Protein (<30 mg/dL) mg/dL Urine Glucose (UA) (NEGATIVE) mg/dL Urine Ketones (NEGATIVE) mg/dL Urine Blood (NEGATIVE) Urine Nitrate (NEGATIVE) Urine Bilirubin (NEGATIVE) Urine Urobilinogen (<1 E.U./dL) E.U./dL Ur Leukocyte Esterase (NEGATIVE) Jesus/uL Alcohol, Quantitative (0-10) mg/dL 08/06/16 08/06/16 08/06/16 Range/Units 05:30 05:30 04:56 WBC (4.5-11.0) 10^3/ul RBC (3.5-6.1) 10^6/uL Hgb (12.0-16.0) gm/dL Hct (36.0-48.0) % MCV (80.0-105.0) fL MCH (25.0-35.0) pg MCHC (31.0-37.0) g/dl RDW (11.5-14.5) % Plt Count (120.0-450.0) 10^3/uL MPV (7.0-11.0) fl Gran % (50.0-68.0) % Lymph % (Auto) (22.0-35.0) % Henry % (Auto) (1.0-6.0) % Eos % (Auto) (1.5-5.0) % Baso % (Auto) (0.0-3.0) % Gran # (1.4-6.5) Lymph # (1.2-3.4) Henry # (0.1-0.6) Eos # (0.0-0.7) Baso # (0.0-2.0) K/mm3 pO2 (30-55) mm/Hg VBG pH (7.32-7.43) VBG pCO2 (40-60) VBG HCO3 (21-28) mmol/l VBG Total CO2 (22-28) mmol.L VBG O2 Sat (Calc) (40-65) % VBG Base Excess (0.0-2.0) mmol/L VBG Potassium (3.6-5.2) mmol/L Sodium 139 (132-148) mmol/L Chloride 113 H (98-107) mmol/L Glucose (65-105) mg/dl Lactate (0.7-2.1) mmol/L FiO2 % Potassium 4.2 (3.6-5.0) mmol/L Carbon Dioxide 20 L (21-33) mmol/L Anion Gap 10 (10-20) BUN 22 H (7-21) mg/dL Creatinine 0.8 (0.5-1.4) mg/dL Est GFR ( Amer) > 60 Est GFR (Non-Af Amer) > 60 POC Glucose (mg/dL) 160 H (65-110) mg/dL Random Glucose 139 H (70-110) mg/dL Hemoglobin A1c 10.4 H (4.2-6.5) % Lactic Acid (0.7-2.1) mmol/L Calcium 7.2 L (8.4-10.5) mg/dL Magnesium (1.7-2.2) mg/dL Amylase (35-125) U/L Lipase (23-300) U/L TSH 3rd Generation (0.46-4.68) mIU/mL Venous Blood Potassium (3.6-5.2) mmol/L Urine Color (YELLOW) Urine Appearance (CLEAR) Urine pH (4.7-8.0) Ur Specific [place] (1.005-1.035) Urine Protein (<30 mg/dL) mg/dL Urine Glucose (UA) (NEGATIVE) mg/dL Urine Ketones (NEGATIVE) mg/dL Urine Blood (NEGATIVE) Urine Nitrate (NEGATIVE) Urine Bilirubin (NEGATIVE) Urine Urobilinogen (<1 E.U./dL) E.U./dL Ur Leukocyte Esterase (NEGATIVE) Jesus/uL Alcohol, Quantitative (0-10) mg/dL 08/06/16 08/06/16 08/06/16 Range/Units 03:56 03:02 02:05 WBC (4.5-11.0) 10^3/ul RBC (3.5-6.1) 10^6/uL Hgb (12.0-16.0) gm/dL Hct (36.0-48.0) % MCV (80.0-105.0) fL MCH (25.0-35.0) pg MCHC (31.0-37.0) g/dl RDW (11.5-14.5) % Plt Count (120.0-450.0) 10^3/uL MPV (7.0-11.0) fl Gran % (50.0-68.0) % Lymph % (Auto) (22.0-35.0) % Henry % (Auto) (1.0-6.0) % Eos % (Auto) (1.5-5.0) % Baso % (Auto) (0.0-3.0) % Gran # (1.4-6.5) Lymph # (1.2-3.4) Henry # (0.1-0.6) Eos # (0.0-0.7) Baso # (0.0-2.0) K/mm3 pO2 (30-55) mm/Hg VBG pH (7.32-7.43) VBG pCO2 (40-60) VBG HCO3 (21-28) mmol/l VBG Total CO2 (22-28) mmol.L VBG O2 Sat (Calc) (40-65) % VBG Base Excess (0.0-2.0) mmol/L VBG Potassium (3.6-5.2) mmol/L Sodium (132-148) mmol/L Chloride (98-107) mmol/L Glucose (65-105) mg/dl Lactate (0.7-2.1) mmol/L FiO2 % Potassium (3.6-5.0) mmol/L Carbon Dioxide (21-33) mmol/L Anion Gap (10-20) BUN (7-21) mg/dL Creatinine (0.5-1.4) mg/dL Est GFR ( Amer) Est GFR (Non-Af Amer) POC Glucose (mg/dL) 140 H 149 H 158 H (65-110) mg/dL Random Glucose (70-110) mg/dL Hemoglobin A1c (4.2-6.5) % Lactic Acid (0.7-2.1) mmol/L Calcium (8.4-10.5) mg/dL Magnesium (1.7-2.2) mg/dL Amylase (35-125) U/L Lipase (23-300) U/L TSH 3rd Generation (0.46-4.68) mIU/mL Venous Blood Potassium (3.6-5.2) mmol/L Urine Color (YELLOW) Urine Appearance (CLEAR) Urine pH (4.7-8.0) Ur Specific [place] (1.005-1.035) Urine Protein (<30 mg/dL) mg/dL Urine Glucose (UA) (NEGATIVE) mg/dL Urine Ketones (NEGATIVE) mg/dL Urine Blood (NEGATIVE) Urine Nitrate (NEGATIVE) Urine Bilirubin (NEGATIVE) Urine Urobilinogen (<1 E.U./dL) E.U./dL Ur Leukocyte Esterase (NEGATIVE) Jesus/uL Alcohol, Quantitative (0-10) mg/dL 08/06/16 08/06/16 08/06/16 Range/Units 01:04 00:20 00:20 WBC (4.5-11.0) 10^3/ul RBC (3.5-6.1) 10^6/uL Hgb (12.0-16.0) gm/dL Hct (36.0-48.0) % MCV (80.0-105.0) fL MCH (25.0-35.0) pg MCHC (31.0-37.0) g/dl RDW (11.5-14.5) % Plt Count (120.0-450.0) 10^3/uL MPV (7.0-11.0) fl Gran % (50.0-68.0) % Lymph % (Auto) (22.0-35.0) % Henry % (Auto) (1.0-6.0) % Eos % (Auto) (1.5-5.0) % Baso % (Auto) (0.0-3.0) % Gran # (1.4-6.5) Lymph # (1.2-3.4) Henry # (0.1-0.6) Eos # (0.0-0.7) Baso # (0.0-2.0) K/mm3 pO2 58 H (30-55) mm/Hg VBG pH 7.24 L (7.32-7.43) VBG pCO2 42.0 (40-60) VBG HCO3 18.0 L (21-28) mmol/l VBG Total CO2 19.3 L (22-28) mmol.L VBG O2 Sat (Calc) 93.2 H (40-65) % VBG Base Excess -9.0 L (0.0-2.0) mmol/L VBG Potassium 4.3 (3.6-5.2) mmol/L Sodium 141 140.0 (132-148) mmol/L Chloride 114 H 114.0 H (98-107) mmol/L Glucose 134 H (65-105) mg/dl Lactate 0.9 (0.7-2.1) mmol/L FiO2 21.0 % Potassium 4.3 (3.6-5.0) mmol/L Carbon Dioxide 17 L (21-33) mmol/L Anion Gap 14 (10-20) BUN 24 H (7-21) mg/dL Creatinine 0.9 (0.5-1.4) mg/dL Est GFR ( Amer) > 60 Est GFR (Non-Af Amer) > 60 POC Glucose (mg/dL) 180 H (65-110) mg/dL Random Glucose 121 H (70-110) mg/dL Hemoglobin A1c (4.2-6.5) % Lactic Acid (0.7-2.1) mmol/L Calcium 7.1 L (8.4-10.5) mg/dL Magnesium (1.7-2.2) mg/dL Amylase (35-125) U/L Lipase (23-300) U/L TSH 3rd Generation (0.46-4.68) mIU/mL Venous Blood Potassium 4.3 (3.6-5.2) mmol/L Urine Color (YELLOW) Urine Appearance (CLEAR) Urine pH (4.7-8.0) Ur Specific [place] (1.005-1.035) Urine Protein (<30 mg/dL) mg/dL Urine Glucose (UA) (NEGATIVE) mg/dL Urine Ketones (NEGATIVE) mg/dL Urine Blood (NEGATIVE) Urine Nitrate (NEGATIVE) Urine Bilirubin (NEGATIVE) Urine Urobilinogen (<1 E.U./dL) E.U./dL Ur Leukocyte Esterase (NEGATIVE) Jesus/uL Alcohol, Quantitative (0-10) mg/dL 08/05/16 08/05/16 08/05/16 Range/Units 23:54 23:05 21:55 WBC (4.5-11.0) 10^3/ul RBC (3.5-6.1) 10^6/uL Hgb (12.0-16.0) gm/dL Hct (36.0-48.0) % MCV (80.0-105.0) fL MCH (25.0-35.0) pg MCHC (31.0-37.0) g/dl RDW (11.5-14.5) % Plt Count (120.0-450.0) 10^3/uL MPV (7.0-11.0) fl Gran % (50.0-68.0) % Lymph % (Auto) (22.0-35.0) % Henry % (Auto) (1.0-6.0) % Eos % (Auto) (1.5-5.0) % Baso % (Auto) (0.0-3.0) % Gran # (1.4-6.5) Lymph # (1.2-3.4) Henry # (0.1-0.6) Eos # (0.0-0.7) Baso # (0.0-2.0) K/mm3 pO2 (30-55) mm/Hg VBG pH (7.32-7.43) VBG pCO2 (40-60) VBG HCO3 (21-28) mmol/l VBG Total CO2 (22-28) mmol.L VBG O2 Sat (Calc) (40-65) % VBG Base Excess (0.0-2.0) mmol/L VBG Potassium (3.6-5.2) mmol/L Sodium (132-148) mmol/L Chloride (98-107) mmol/L Glucose (65-105) mg/dl Lactate (0.7-2.1) mmol/L FiO2 % Potassium (3.6-5.0) mmol/L Carbon Dioxide (21-33) mmol/L Anion Gap (10-20) BUN (7-21) mg/dL Creatinine (0.5-1.4) mg/dL Est GFR ( Amer) Est GFR (Non-Af Amer) POC Glucose (mg/dL) 150 H 122 H 162 H (65-110) mg/dL Random Glucose (70-110) mg/dL Hemoglobin A1c (4.2-6.5) % Lactic Acid (0.7-2.1) mmol/L Calcium (8.4-10.5) mg/dL Magnesium (1.7-2.2) mg/dL Amylase (35-125) U/L Lipase (23-300) U/L TSH 3rd Generation (0.46-4.68) mIU/mL Venous Blood Potassium (3.6-5.2) mmol/L Urine Color (YELLOW) Urine Appearance (CLEAR) Urine pH (4.7-8.0) Ur Specific [place] (1.005-1.035) Urine Protein (<30 mg/dL) mg/dL Urine Glucose (UA) (NEGATIVE) mg/dL Urine Ketones (NEGATIVE) mg/dL Urine Blood (NEGATIVE) Urine Nitrate (NEGATIVE) Urine Bilirubin (NEGATIVE) Urine Urobilinogen (<1 E.U./dL) E.U./dL Ur Leukocyte Esterase (NEGATIVE) Jesus/uL Alcohol, Quantitative (0-10) mg/dL 08/05/16 08/05/16 08/05/16 Range/Units 20:51 20:40 20:40 WBC (4.5-11.0) 10^3/ul RBC (3.5-6.1) 10^6/uL Hgb (12.0-16.0) gm/dL Hct (36.0-48.0) % MCV (80.0-105.0) fL MCH (25.0-35.0) pg MCHC (31.0-37.0) g/dl RDW (11.5-14.5) % Plt Count (120.0-450.0) 10^3/uL MPV (7.0-11.0) fl Gran % (50.0-68.0) % Lymph % (Auto) (22.0-35.0) % Henry % (Auto) (1.0-6.0) % Eos % (Auto) (1.5-5.0) % Baso % (Auto) (0.0-3.0) % Gran # (1.4-6.5) Lymph # (1.2-3.4) Henry # (0.1-0.6) Eos # (0.0-0.7) Baso # (0.0-2.0) K/mm3 pO2 30 (30-55) mm/Hg VBG pH 7.18 L* (7.32-7.43) VBG pCO2 56.0 (40-60) VBG HCO3 20.9 L (21-28) mmol/l VBG Total CO2 22.6 (22-28) mmol.L VBG O2 Sat (Calc) 58.7 (40-65) % VBG Base Excess -7.8 L (0.0-2.0) mmol/L VBG Potassium 4.4 (3.6-5.2) mmol/L Sodium 140.0 140 (132-148) mmol/L Chloride 112.0 H 110 H (98-107) mmol/L Glucose 209 H (65-105) mg/dl Lactate 2.7 H (0.7-2.1) mmol/L FiO2 21.0 % Potassium 4.4 (3.6-5.0) mmol/L Carbon Dioxide 19 L (21-33) mmol/L Anion Gap 15 (10-20) BUN 30 H (7-21) mg/dL Creatinine 1.1 (0.5-1.4) mg/dL Est GFR ( Amer) > 60 Est GFR (Non-Af Amer) 50 POC Glucose (mg/dL) 205 H (65-110) mg/dL Random Glucose 190 H (70-110) mg/dL Hemoglobin A1c (4.2-6.5) % Lactic Acid (0.7-2.1) mmol/L Calcium 7.5 L (8.4-10.5) mg/dL Magnesium (1.7-2.2) mg/dL Amylase (35-125) U/L Lipase (23-300) U/L TSH 3rd Generation (0.46-4.68) mIU/mL Venous Blood Potassium 4.4 (3.6-5.2) mmol/L Urine Color (YELLOW) Urine Appearance (CLEAR) Urine pH (4.7-8.0) Ur Specific [place] (1.005-1.035) Urine Protein (<30 mg/dL) mg/dL Urine Glucose (UA) (NEGATIVE) mg/dL Urine Ketones (NEGATIVE) mg/dL Urine Blood (NEGATIVE) Urine Nitrate (NEGATIVE) Urine Bilirubin (NEGATIVE) Urine Urobilinogen (<1 E.U./dL) E.U./dL Ur Leukocyte Esterase (NEGATIVE) Jesus/uL Alcohol, Quantitative (0-10) mg/dL 08/05/16 08/05/16 08/05/16 Range/Units 19:53 19:03 18:34 WBC (4.5-11.0) 10^3/ul RBC (3.5-6.1) 10^6/uL Hgb (12.0-16.0) gm/dL Hct (36.0-48.0) % MCV (80.0-105.0) fL MCH (25.0-35.0) pg MCHC (31.0-37.0) g/dl RDW (11.5-14.5) % Plt Count (120.0-450.0) 10^3/uL MPV (7.0-11.0) fl Gran % (50.0-68.0) % Lymph % (Auto) (22.0-35.0) % Henry % (Auto) (1.0-6.0) % Eos % (Auto) (1.5-5.0) % Baso % (Auto) (0.0-3.0) % Gran # (1.4-6.5) Lymph # (1.2-3.4) Henry # (0.1-0.6) Eos # (0.0-0.7) Baso # (0.0-2.0) K/mm3 pO2 (30-55) mm/Hg VBG pH (7.32-7.43) VBG pCO2 (40-60) VBG HCO3 (21-28) mmol/l VBG Total CO2 (22-28) mmol.L VBG O2 Sat (Calc) (40-65) % VBG Base Excess (0.0-2.0) mmol/L VBG Potassium (3.6-5.2) mmol/L Sodium (132-148) mmol/L Chloride (98-107) mmol/L Glucose (65-105) mg/dl Lactate (0.7-2.1) mmol/L FiO2 % Potassium (3.6-5.0) mmol/L Carbon Dioxide (21-33) mmol/L Anion Gap (10-20) BUN (7-21) mg/dL Creatinine (0.5-1.4) mg/dL Est GFR ( Amer) Est GFR (Non-Af Amer) POC Glucose (mg/dL) 383 H 281 H 285 H (65-110) mg/dL Random Glucose (70-110) mg/dL Hemoglobin A1c (4.2-6.5) % Lactic Acid (0.7-2.1) mmol/L Calcium (8.4-10.5) mg/dL Magnesium (1.7-2.2) mg/dL Amylase (35-125) U/L Lipase (23-300) U/L TSH 3rd Generation (0.46-4.68) mIU/mL Venous Blood Potassium (3.6-5.2) mmol/L Urine Color (YELLOW) Urine Appearance (CLEAR) Urine pH (4.7-8.0) Ur Specific [place] (1.005-1.035) Urine Protein (<30 mg/dL) mg/dL Urine Glucose (UA) (NEGATIVE) mg/dL Urine Ketones (NEGATIVE) mg/dL Urine Blood (NEGATIVE) Urine Nitrate (NEGATIVE) Urine Bilirubin (NEGATIVE) Urine Urobilinogen (<1 E.U./dL) E.U./dL Ur Leukocyte Esterase (NEGATIVE) Jesus/uL Alcohol, Quantitative (0-10) mg/dL 08/05/16 08/05/16 08/05/16 Range/Units 17:10 16:07 15:50 WBC (4.5-11.0) 10^3/ul RBC (3.5-6.1) 10^6/uL Hgb (12.0-16.0) gm/dL Hct (36.0-48.0) % MCV (80.0-105.0) fL MCH (25.0-35.0) pg MCHC (31.0-37.0) g/dl RDW (11.5-14.5) % Plt Count (120.0-450.0) 10^3/uL MPV (7.0-11.0) fl Gran % (50.0-68.0) % Lymph % (Auto) (22.0-35.0) % Henry % (Auto) (1.0-6.0) % Eos % (Auto) (1.5-5.0) % Baso % (Auto) (0.0-3.0) % Gran # (1.4-6.5) Lymph # (1.2-3.4) Henry # (0.1-0.6) Eos # (0.0-0.7) Baso # (0.0-2.0) K/mm3 pO2 30 (30-55) mm/Hg VBG pH 7.04 L* (7.32-7.43) VBG pCO2 39.0 L (40-60) VBG HCO3 10.5 L (21-28) mmol/l VBG Total CO2 11.7 L (22-28) mmol.L VBG O2 Sat (Calc) 55.0 (40-65) % VBG Base Excess -19.5 L (0.0-2.0) mmol/L VBG Potassium 4.7 (3.6-5.2) mmol/L Sodium 137.0 (132-148) mmol/L Chloride 103.0 (98-107) mmol/L Glucose 550 H* D (65-105) mg/dl Lactate 2.2 H (0.7-2.1) mmol/L FiO2 21.0 % Potassium (3.6-5.0) mmol/L Carbon Dioxide (21-33) mmol/L Anion Gap (10-20) BUN (7-21) mg/dL Creatinine (0.5-1.4) mg/dL Est GFR ( Amer) Est GFR (Non-Af Amer) POC Glucose (mg/dL) 390 H 488 H* (65-110) mg/dL Random Glucose (70-110) mg/dL Hemoglobin A1c (4.2-6.5) % Lactic Acid (0.7-2.1) mmol/L Calcium (8.4-10.5) mg/dL Magnesium (1.7-2.2) mg/dL Amylase (35-125) U/L Lipase (23-300) U/L TSH 3rd Generation (0.46-4.68) mIU/mL Venous Blood Potassium 4.7 (3.6-5.2) mmol/L Urine Color (YELLOW) Urine Appearance (CLEAR) Urine pH (4.7-8.0) Ur Specific [place] (1.005-1.035) Urine Protein (<30 mg/dL) mg/dL Urine Glucose (UA) (NEGATIVE) mg/dL Urine Ketones (NEGATIVE) mg/dL Urine Blood (NEGATIVE) Urine Nitrate (NEGATIVE) Urine Bilirubin (NEGATIVE) Urine Urobilinogen (<1 E.U./dL) E.U./dL Ur Leukocyte Esterase (NEGATIVE) Jesus/uL Alcohol, Quantitative (0-10) mg/dL 08/05/16 08/05/16 08/05/16 Range/Units 15:50 15:15 15:15 WBC (4.5-11.0) 10^3/ul RBC (3.5-6.1) 10^6/uL Hgb (12.0-16.0) gm/dL Hct (36.0-48.0) % MCV (80.0-105.0) fL MCH (25.0-35.0) pg MCHC (31.0-37.0) g/dl RDW (11.5-14.5) % Plt Count (120.0-450.0) 10^3/uL MPV (7.0-11.0) fl Gran % (50.0-68.0) % Lymph % (Auto) (22.0-35.0) % Henry % (Auto) (1.0-6.0) % Eos % (Auto) (1.5-5.0) % Baso % (Auto) (0.0-3.0) % Gran # (1.4-6.5) Lymph # (1.2-3.4) Henry # (0.1-0.6) Eos # (0.0-0.7) Baso # (0.0-2.0) K/mm3 pO2 (30-55) mm/Hg VBG pH (7.32-7.43) VBG pCO2 (40-60) VBG HCO3 (21-28) mmol/l VBG Total CO2 (22-28) mmol.L VBG O2 Sat (Calc) (40-65) % VBG Base Excess (0.0-2.0) mmol/L VBG Potassium (3.6-5.2) mmol/L Sodium 136 (132-148) mmol/L Chloride 103 (98-107) mmol/L Glucose (65-105) mg/dl Lactate (0.7-2.1) mmol/L FiO2 % Potassium 4.4 (3.6-5.0) mmol/L Carbon Dioxide 10 L (21-33) mmol/L Anion Gap 27 H (10-20) BUN 33 H (7-21) mg/dL Creatinine 1.5 H (0.5-1.4) mg/dL Est GFR ( Amer) 43 Est GFR (Non-Af Amer) 35 POC Glucose (mg/dL) (65-110) mg/dL Random Glucose 588 H* D (70-110) mg/dL Hemoglobin A1c (4.2-6.5) % Lactic Acid 1.7 (0.7-2.1) mmol/L Calcium 8.1 L (8.4-10.5) mg/dL Magnesium (1.7-2.2) mg/dL Amylase (35-125) U/L Lipase (23-300) U/L TSH 3rd Generation (0.46-4.68) mIU/mL Venous Blood Potassium (3.6-5.2) mmol/L Urine Color (YELLOW) Urine Appearance (CLEAR) Urine pH (4.7-8.0) Ur Specific [place] (1.005-1.035) Urine Protein (<30 mg/dL) mg/dL Urine Glucose (UA) (NEGATIVE) mg/dL Urine Ketones (NEGATIVE) mg/dL Urine Blood (NEGATIVE) Urine Nitrate (NEGATIVE) Urine Bilirubin (NEGATIVE) Urine Urobilinogen (<1 E.U./dL) E.U./dL Ur Leukocyte Esterase (NEGATIVE) Jesus/uL Alcohol, Quantitative < 10 (0-10) mg/dL 08/05/16 08/05/16 08/05/16 Range/Units 15:00 14:56 14:20 WBC (4.5-11.0) 10^3/ul RBC (3.5-6.1) 10^6/uL Hgb (12.0-16.0) gm/dL Hct (36.0-48.0) % MCV (80.0-105.0) fL MCH (25.0-35.0) pg MCHC (31.0-37.0) g/dl RDW (11.5-14.5) % Plt Count (120.0-450.0) 10^3/uL MPV (7.0-11.0) fl Gran % (50.0-68.0) % Lymph % (Auto) (22.0-35.0) % Henry % (Auto) (1.0-6.0) % Eos % (Auto) (1.5-5.0) % Baso % (Auto) (0.0-3.0) % Gran # (1.4-6.5) Lymph # (1.2-3.4) Henry # (0.1-0.6) Eos # (0.0-0.7) Baso # (0.0-2.0) K/mm3 pO2 (30-55) mm/Hg VBG pH (7.32-7.43) VBG pCO2 (40-60) VBG HCO3 (21-28) mmol/l VBG Total CO2 (22-28) mmol.L VBG O2 Sat (Calc) (40-65) % VBG Base Excess (0.0-2.0) mmol/L VBG Potassium (3.6-5.2) mmol/L Sodium (132-148) mmol/L Chloride (98-107) mmol/L Glucose (65-105) mg/dl Lactate (0.7-2.1) mmol/L FiO2 % Potassium (3.6-5.0) mmol/L Carbon Dioxide (21-33) mmol/L Anion Gap (10-20) BUN (7-21) mg/dL Creatinine (0.5-1.4) mg/dL Est GFR ( Amer) Est GFR (Non-Af Amer) POC Glucose (mg/dL) 487 H* (65-110) mg/dL Random Glucose (70-110) mg/dL Hemoglobin A1c (4.2-6.5) % Lactic Acid (0.7-2.1) mmol/L Calcium (8.4-10.5) mg/dL Magnesium 2.2 (1.7-2.2) mg/dL Amylase (35-125) U/L Lipase (23-300) U/L TSH 3rd Generation (0.46-4.68) mIU/mL Venous Blood Potassium (3.6-5.2) mmol/L Urine Color Yellow (YELLOW) Urine Appearance Clear (CLEAR) Urine pH 5.5 (4.7-8.0) Ur Specific [place] >= 1.030 (1.005-1.035) Urine Protein Negative (<30 mg/dL) mg/dL Urine Glucose (UA) >=1000 (NEGATIVE) mg/dL Urine Ketones 15 H (NEGATIVE) mg/dL Urine Blood Negative (NEGATIVE) Urine Nitrate Negative (NEGATIVE) Urine Bilirubin Moderate H (NEGATIVE) Urine Urobilinogen 0.2 (<1 E.U./dL) E.U./dL Ur Leukocyte Esterase Negative (NEGATIVE) Jesus/uL Alcohol, Quantitative (0-10) mg/dL 08/05/16 Range/Units 12:47 WBC (4.5-11.0) 10^3/ul RBC (3.5-6.1) 10^6/uL Hgb (12.0-16.0) gm/dL Hct (36.0-48.0) % MCV (80.0-105.0) fL MCH (25.0-35.0) pg MCHC (31.0-37.0) g/dl RDW (11.5-14.5) % Plt Count (120.0-450.0) 10^3/uL MPV (7.0-11.0) fl Gran % (50.0-68.0) % Lymph % (Auto) (22.0-35.0) % Henry % (Auto) (1.0-6.0) % Eos % (Auto) (1.5-5.0) % Baso % (Auto) (0.0-3.0) % Gran # (1.4-6.5) Lymph # (1.2-3.4) Henry # (0.1-0.6) Eos # (0.0-0.7) Baso # (0.0-2.0) K/mm3 pO2 (30-55) mm/Hg VBG pH (7.32-7.43) VBG pCO2 (40-60) VBG HCO3 (21-28) mmol/l VBG Total CO2 (22-28) mmol.L VBG O2 Sat (Calc) (40-65) % VBG Base Excess (0.0-2.0) mmol/L VBG Potassium (3.6-5.2) mmol/L Sodium (132-148) mmol/L Chloride (98-107) mmol/L Glucose (65-105) mg/dl Lactate (0.7-2.1) mmol/L FiO2 % Potassium (3.6-5.0) mmol/L Carbon Dioxide (21-33) mmol/L Anion Gap (10-20) BUN (7-21) mg/dL Creatinine (0.5-1.4) mg/dL Est GFR ( Amer) Est GFR (Non-Af Amer) POC Glucose (mg/dL) (65-110) mg/dL Random Glucose (70-110) mg/dL Hemoglobin A1c (4.2-6.5) % Lactic Acid (0.7-2.1) mmol/L Calcium (8.4-10.5) mg/dL Magnesium (1.7-2.2) mg/dL Amylase 48 (35-125) U/L Lipase 55 (23-300) U/L TSH 3rd Generation (0.46-4.68) mIU/mL Venous Blood Potassium (3.6-5.2) mmol/L Urine Color (YELLOW) Urine Appearance (CLEAR) Urine pH (4.7-8.0) Ur Specific [place] (1.005-1.035) Urine Protein (<30 mg/dL) mg/dL Urine Glucose (UA) (NEGATIVE) mg/dL Urine Ketones (NEGATIVE) mg/dL Urine Blood (NEGATIVE) Urine Nitrate (NEGATIVE) Urine Bilirubin (NEGATIVE) Urine Urobilinogen (<1 E.U./dL) E.U./dL Ur Leukocyte Esterase (NEGATIVE) Jesus/uL Alcohol, Quantitative (0-10) mg/dL Laboratory Results - last 24 hr 08/05/16 08/05/16 08/05/16 12:47 14:20 14:56 WBC RBC Hgb Hct MCV MCH MCHC RDW Plt Count MPV Gran % Lymph % (Auto) Henry % (Auto) Eos % (Auto) Baso % (Auto) Gran # Lymph # Henry # Eos # Baso # pO2 VBG pH VBG pCO2 VBG HCO3 VBG Total CO2 VBG O2 Sat (Calc) VBG Base Excess VBG Potassium Sodium Chloride Glucose Lactate FiO2 Potassium Carbon Dioxide Anion Gap BUN Creatinine Est GFR ( Amer) Est GFR (Non-Af Amer) POC Glucose (mg/dL) 487 H* Random Glucose Hemoglobin A1c Lactic Acid Calcium Magnesium 2.2 Amylase 48 Lipase 55 TSH 3rd Generation Venous Blood Potassium Urine Color Urine Appearance Urine pH Ur Specific [place] Urine Protein Urine Glucose (UA) Urine Ketones Urine Blood Urine Nitrate Urine Bilirubin Urine Urobilinogen Ur Leukocyte Esterase Alcohol, Quantitative 08/05/16 08/05/16 08/05/16 15:00 15:15 15:15 WBC RBC Hgb Hct MCV MCH MCHC RDW Plt Count MPV Gran % Lymph % (Auto) Henry % (Auto) Eos % (Auto) Baso % (Auto) Gran # Lymph # Henry # Eos # Baso # pO2 VBG pH VBG pCO2 VBG HCO3 VBG Total CO2 VBG O2 Sat (Calc) VBG Base Excess VBG Potassium Sodium Chloride Glucose Lactate FiO2 Potassium Carbon Dioxide Anion Gap BUN Creatinine Est GFR ( Amer) Est GFR (Non-Af Amer) POC Glucose (mg/dL) Random Glucose Hemoglobin A1c Lactic Acid 1.7 Calcium Magnesium Amylase Lipase TSH 3rd Generation Venous Blood Potassium Urine Color Yellow Urine Appearance Clear Urine pH 5.5 Ur Specific [place] >= 1.030 Urine Protein Negative Urine Glucose (UA) >=1000 Urine Ketones 15 H Urine Blood Negative Urine Nitrate Negative Urine Bilirubin Moderate H Urine Urobilinogen 0.2 Ur Leukocyte Esterase Negative Alcohol, Quantitative < 10 08/05/16 08/05/16 08/05/16 15:50 15:50 16:07 WBC RBC Hgb Hct MCV MCH MCHC RDW Plt Count MPV Gran % Lymph % (Auto) Henry % (Auto) Eos % (Auto) Baso % (Auto) Gran # Lymph # Henry # Eos # Baso # pO2 30 VBG pH 7.04 L* VBG pCO2 39.0 L VBG HCO3 10.5 L VBG Total CO2 11.7 L VBG O2 Sat (Calc) 55.0 VBG Base Excess -19.5 L VBG Potassium 4.7 Sodium 136 137.0 Chloride 103 103.0 Glucose 550 H* D Lactate 2.2 H FiO2 21.0 Potassium 4.4 Carbon Dioxide 10 L Anion Gap 27 H BUN 33 H Creatinine 1.5 H Est GFR ( Amer) 43 Est GFR (Non-Af Amer) 35 POC Glucose (mg/dL) 488 H* Random Glucose 588 H* D Hemoglobin A1c Lactic Acid Calcium 8.1 L Magnesium Amylase Lipase TSH 3rd Generation Venous Blood Potassium 4.7 Urine Color Urine Appearance Urine pH Ur Specific [place] Urine Protein Urine Glucose (UA) Urine Ketones Urine Blood Urine Nitrate Urine Bilirubin Urine Urobilinogen Ur Leukocyte Esterase Alcohol, Quantitative 08/05/16 08/05/16 08/05/16 17:10 18:34 19:03 WBC RBC Hgb Hct MCV MCH MCHC RDW Plt Count MPV Gran % Lymph % (Auto) Henry % (Auto) Eos % (Auto) Baso % (Auto) Gran # Lymph # Henry # Eos # Baso # pO2 VBG pH VBG pCO2 VBG HCO3 VBG Total CO2 VBG O2 Sat (Calc) VBG Base Excess VBG Potassium Sodium Chloride Glucose Lactate FiO2 Potassium Carbon Dioxide Anion Gap BUN Creatinine Est GFR ( Amer) Est GFR (Non-Af Amer) POC Glucose (mg/dL) 390 H 285 H 281 H Random Glucose Hemoglobin A1c Lactic Acid Calcium Magnesium Amylase Lipase TSH 3rd Generation Venous Blood Potassium Urine Color Urine Appearance Urine pH Ur Specific [place] Urine Protein Urine Glucose (UA) Urine Ketones Urine Blood Urine Nitrate Urine Bilirubin Urine Urobilinogen Ur Leukocyte Esterase Alcohol, Quantitative 08/05/16 08/05/16 08/05/16 19:53 20:40 20:40 WBC RBC Hgb Hct MCV MCH MCHC RDW Plt Count MPV Gran % Lymph % (Auto) Henry % (Auto) Eos % (Auto) Baso % (Auto) Gran # Lymph # Henry # Eos # Baso # pO2 30 VBG pH 7.18 L* VBG pCO2 56.0 VBG HCO3 20.9 L VBG Total CO2 22.6 VBG O2 Sat (Calc) 58.7 VBG Base Excess -7.8 L VBG Potassium 4.4 Sodium 140 140.0 Chloride 110 H 112.0 H Glucose 209 H Lactate 2.7 H FiO2 21.0 Potassium 4.4 Carbon Dioxide 19 L Anion Gap 15 BUN 30 H Creatinine 1.1 Est GFR ( Amer) > 60 Est GFR (Non-Af Amer) 50 POC Glucose (mg/dL) 383 H Random Glucose 190 H Hemoglobin A1c Lactic Acid Calcium 7.5 L Magnesium Amylase Lipase TSH 3rd Generation Venous Blood Potassium 4.4 Urine Color Urine Appearance Urine pH Ur Specific [place] Urine Protein Urine Glucose (UA) Urine Ketones Urine Blood Urine Nitrate Urine Bilirubin Urine Urobilinogen Ur Leukocyte Esterase Alcohol, Quantitative 08/05/16 08/05/16 08/05/16 20:51 21:55 23:05 WBC RBC Hgb Hct MCV MCH MCHC RDW Plt Count MPV Gran % Lymph % (Auto) Henry % (Auto) Eos % (Auto) Baso % (Auto) Gran # Lymph # Henry # Eos # Baso # pO2 VBG pH VBG pCO2 VBG HCO3 VBG Total CO2 VBG O2 Sat (Calc) VBG Base Excess VBG Potassium Sodium Chloride Glucose Lactate FiO2 Potassium Carbon Dioxide Anion Gap BUN Creatinine Est GFR ( Amer) Est GFR (Non-Af Amer) POC Glucose (mg/dL) 205 H 162 H 122 H Random Glucose Hemoglobin A1c Lactic Acid Calcium Magnesium Amylase Lipase TSH 3rd Generation Venous Blood Potassium Urine Color Urine Appearance Urine pH Ur Specific [place] Urine Protein Urine Glucose (UA) Urine Ketones Urine Blood Urine Nitrate Urine Bilirubin Urine Urobilinogen Ur Leukocyte Esterase Alcohol, Quantitative 08/05/16 08/06/16 08/06/16 23:54 00:20 00:20 WBC RBC Hgb Hct MCV MCH MCHC RDW Plt Count MPV Gran % Lymph % (Auto) Henry % (Auto) Eos % (Auto) Baso % (Auto) Gran # Lymph # Henry # Eos # Baso # pO2 58 H VBG pH 7.24 L VBG pCO2 42.0 VBG HCO3 18.0 L VBG Total CO2 19.3 L VBG O2 Sat (Calc) 93.2 H VBG Base Excess -9.0 L VBG Potassium 4.3 Sodium 140.0 141 Chloride 114.0 H 114 H Glucose 134 H Lactate 0.9 FiO2 21.0 Potassium 4.3 Carbon Dioxide 17 L Anion Gap 14 BUN 24 H Creatinine 0.9 Est GFR ( Amer) > 60 Est GFR (Non-Af Amer) > 60 POC Glucose (mg/dL) 150 H Random Glucose 121 H Hemoglobin A1c Lactic Acid Calcium 7.1 L Magnesium Amylase Lipase TSH 3rd Generation Venous Blood Potassium 4.3 Urine Color Urine Appearance Urine pH Ur Specific [place] Urine Protein Urine Glucose (UA) Urine Ketones Urine Blood Urine Nitrate Urine Bilirubin Urine Urobilinogen Ur Leukocyte Esterase Alcohol, Quantitative 08/06/16 08/06/16 08/06/16 01:04 02:05 03:02 WBC RBC Hgb Hct MCV MCH MCHC RDW Plt Count MPV Gran % Lymph % (Auto) Henry % (Auto) Eos % (Auto) Baso % (Auto) Gran # Lymph # Henry # Eos # Baso # pO2 VBG pH VBG pCO2 VBG HCO3 VBG Total CO2 VBG O2 Sat (Calc) VBG Base Excess VBG Potassium Sodium Chloride Glucose Lactate FiO2 Potassium Carbon Dioxide Anion Gap BUN Creatinine Est GFR ( Amer) Est GFR (Non-Af Amer) POC Glucose (mg/dL) 180 H 158 H 149 H Random Glucose Hemoglobin A1c Lactic Acid Calcium Magnesium Amylase Lipase TSH 3rd Generation Venous Blood Potassium Urine Color Urine Appearance Urine pH Ur Specific [place] Urine Protein Urine Glucose (UA) Urine Ketones Urine Blood Urine Nitrate Urine Bilirubin Urine Urobilinogen Ur Leukocyte Esterase Alcohol, Quantitative 08/06/16 08/06/16 08/06/16 03:56 04:56 05:30 WBC RBC Hgb Hct MCV MCH MCHC RDW Plt Count MPV Gran % Lymph % (Auto) Henry % (Auto) Eos % (Auto) Baso % (Auto) Gran # Lymph # [place] # Eos # Baso # pO2 VBG pH VBG pCO2 VBG HCO3 VBG Total CO2 VBG O2 Sat (Calc) VBG Base Excess VBG Potassium Sodium 139 Chloride 113 H Glucose Lactate FiO2 Potassium 4.2 Carbon Dioxide 20 L Anion Gap 10 BUN 22 H Creatinine 0.8 Est GFR ( Amer) > 60 Est GFR (Non-Af Amer) > 60 POC Glucose (mg/dL) 140 H 160 H Random Glucose 139 H Hemoglobin A1c Lactic Acid Calcium 7.2 L Magnesium Amylase Lipase TSH 3rd Generation Venous Blood Potassium Urine Color Urine Appearance Urine pH Ur Specific [place] Urine Protein Urine Glucose (UA) Urine Ketones Urine Blood Urine Nitrate Urine Bilirubin Urine Urobilinogen Ur Leukocyte Esterase Alcohol, Quantitative 08/06/16 08/06/16 08/06/16 05:30 05:30 06:06 WBC 21.1 H D RBC 4.04 Hgb 10.9 L Hct 33.0 L MCV 81.7 MCH 27.0 MCHC 33.0 RDW 14.2 Plt Count 299 MPV 10.7 Gran % 81.6 H Lymph % (Auto) 9.9 L Henry % (Auto) 8.3 H Eos % (Auto) 0.0 L Baso % (Auto) 0.2 Gran # 17.24 H Lymph # 2.1 Henry # 1.8 H Eos # 0.0 Baso # 0.04 pO2 VBG pH VBG pCO2 VBG HCO3 VBG Total CO2 VBG O2 Sat (Calc) VBG Base Excess VBG Potassium Sodium Chloride Glucose Lactate FiO2 Potassium Carbon Dioxide Anion Gap BUN Creatinine Est GFR ( Amer) Est GFR (Non-Af Amer) POC Glucose (mg/dL) 192 H Random Glucose Hemoglobin A1c 10.4 H Lactic Acid Calcium Magnesium Amylase Lipase TSH 3rd Generation Venous Blood Potassium Urine Color Urine Appearance Urine pH Ur Specific [place] Urine Protein Urine Glucose (UA) Urine Ketones Urine Blood Urine Nitrate Urine Bilirubin Urine Urobilinogen Ur Leukocyte Esterase Alcohol, Quantitative 08/06/16 08/06/16 08/06/16 07:10 09:00 09:00 WBC RBC Hgb Hct MCV MCH MCHC RDW Plt Count MPV Gran % Lymph % (Auto) Henry % (Auto) Eos % (Auto) Baso % (Auto) Gran # Lymph # Henry # Eos # Baso # pO2 VBG pH VBG pCO2 VBG HCO3 VBG Total CO2 VBG O2 Sat (Calc) VBG Base Excess VBG Potassium Sodium 138 Chloride 112 H Glucose Lactate FiO2 Potassium 4.2 Carbon Dioxide 20 L Anion Gap 10 BUN 19 Creatinine 0.7 Est GFR ( Amer) > 60 Est GFR (Non-Af Amer) > 60 POC Glucose (mg/dL) 161 H Random Glucose 152 H Hemoglobin A1c Lactic Acid Calcium 7.3 L Magnesium Amylase Lipase TSH 3rd Generation 0.08 L Venous Blood Potassium Urine Color Urine Appearance Urine pH Ur Specific [place] Urine Protein Urine Glucose (UA) Urine Ketones Urine Blood Urine Nitrate Urine Bilirubin Urine Urobilinogen Ur Leukocyte Esterase Alcohol, Quantitative 08/06/16 12:00 WBC RBC Hgb Hct MCV MCH MCHC RDW Plt Count MPV Gran % Lymph % (Auto) Henry % (Auto) Eos % (Auto) Baso % (Auto) Gran # Lymph # Henry # Eos # Baso # pO2 VBG pH VBG pCO2 VBG HCO3 VBG Total CO2 VBG O2 Sat (Calc) VBG Base Excess VBG Potassium Sodium 137 Chloride 112 H Glucose Lactate FiO2 Potassium 4.0 Carbon Dioxide 20 L Anion Gap 9 L BUN 17 Creatinine 0.7 Est GFR ( Amer) > 60 Est GFR (Non-Af Amer) > 60 POC Glucose (mg/dL) Random Glucose 157 H Hemoglobin A1c Lactic Acid Calcium 7.3 L Magnesium Amylase Lipase TSH 3rd Generation Venous Blood Potassium Urine Color Urine Appearance Urine pH Ur Specific [place] Urine Protein Urine Glucose (UA) Urine Ketones Urine Blood Urine Nitrate Urine Bilirubin Urine Urobilinogen Ur Leukocyte Esterase Alcohol, Quantitative Critical Care Progress Note - Nutrition Nutrition: Nutrition Category Date Time Status Consistent Carbohydrate [DIET] Diets 08/06/16 Breakfast Ordered Attending/Attestation - Attestation I have personally seen and examined this patient.: Yes I have fully participated in the care of the patient.: Yes I have reviewed all pertinent clinical information: Yes Notes (Text): 08/06/16 12:31 60 y/o F w/ DKA DKA resolving. Insuling drip appx 12 hrs. Calculated In[place]lin requirement and will give Levimir and overlap Insulin drip x 2hrs. Replace K and MG. Diet can be ordered. BMP continued. Elevated WBC without a source. cx pending. Afebrile. On rocephin empirically to cover gram + /-. Can escalate abx if need be. Urine out put preserved. COPD- will restart ICS/LABA w/ prn albuterol . No active wheezing. dvt p ppi cc time 65 min
[2016-08-06 09:33] LABS: BLOOD UREA NITROGEN 19 mg/dL (7-21); CALCIUM 7.3 mg/dL (8.4-10.5); CARBON DIOXIDE 20 mmol/L (21-33); CHLORIDE 112 mmol/L (95-110); GFR AFRICAN-AMERICAN > 60; GLUCOSE,RANDOM 152 mg/dL (70-110); POTASSIUM 4.2 mmol/L (3.6-5.0); SODIUM 138 mmol/L (132-148)
[2016-08-06] MEDS ORDERED: Albuterol-Ipratrop 3 mg / 0.5 (3 ml) UD IH PRN (09:41)
[2016-08-06] MEDS ORDERED: Levothyroxine 125 MCG TAB PO SCH (10:00)
[2016-08-06] MEDS: Non Formulary Medication (Ezetimibe/Simvastatin [Vytorin 10-40 Mg Tablet] 1 TAB) PO SCH (10:00)
[2016-08-06] MEDS ORDERED: Insulin Detemir 100 units/ml Vial (Levemir) SC SCH (10:00)
[2016-08-06] MEDS: Insulin Reg-LOW-Coverage SC SCH ×4 (10:31→21:17)
[2016-08-06] MEDS: cefTRIAXone 1 gm 1 GM/100 ML BAG IVPB SCH (10:36)
[2016-08-06] MEDS: Cholecalciferol 400 Intl Units Tab PO SCH (10:41)
[2016-08-06 12:19] LABS: BLOOD UREA NITROGEN 17 mg/dL (7-21); CALCIUM 7.3 mg/dL (8.4-10.5); CARBON DIOXIDE 20 mmol/L (21-33); CHLORIDE 112 mmol/L (98-107); GFR AFRICAN-AMERICAN > 60; GLUCOSE,RANDOM 157 mg/dL (70-110); SODIUM 137 mmol/L (132-148)
[2016-08-06] MEDS: Albuterol-Ipratrop 3 mg / 0.5 (3 ml) UD IH SCH ×2 (13:18→19:45)
--- NOTE | 2016-08-06 14:44 | CP.PCM.PN ---
Subjective - Date & Time of Evaluation Date of Evaluation: 08/06/16 Time of Evaluation: 07:40 - Subjective Subjective: Internal Medicine Progress Note for Dr. Truong/Dr. [place]field Service Patient seen and examined at bedside in the ICU. Today is hospital day 2. No acute events overnight. Patient denies any further episodes of emesis since yesterday. Denies chest pain, shortness of breath, cough, focal weakness, fever /chills, dysuria, constipation, or diarrhea. Only complaints are fatigue and a headache. Objective - Vital Signs/Intake and Output Vital Signs (last 24 hours): Temp Pulse Resp BP Pulse Ox 97.6 F 89 26 H 107/49 L 96 08/06/16 12:00 08/06/16 12:00 08/06/16 12:00 08/06/16 12:00 08/06/16 12:00 Intake and Output: 08/06/16 08/06/16 06:59 18:59 Intake Total 9221.5 5.0 Output Total 1110 Balance 8111.5 5.0 - Medications Medications: Current Medications Acetaminophen (Tylenol 325mg Tab) 650 mg PO Q6H PRN PRN Reason: Pain, Mild (1-3) Last Admin: 08/06/16 11:06 Dose: 650 mg Albuterol/Ipratropium (Duoneb 3 Mg/0.5 Mg (3 Ml) Ud) 3 ml IH Q2H PRN PRN Reason: Shortness of Breath Albuterol/Ipratropium (Duoneb 3 Mg/0.5 Mg (3 Ml) Ud) 3 ml IH [id number] [facility] Last Admin: 08/06/16 13:18 Dose: 3 ml Arformoterol Tartrate (Brovana) 15 mcg IH [id number] [facility] Budesonide (Pulmicort Respules) 0.25 mg IH [id number] [facility] Carvedilol (Coreg) 3.125 mg PO BID [facility] Last Admin: 08/06/16 10:38 Dose: 3.125 mg Clopidogrel Bisulfate (Plavix) 75 mg PO DAILY [facility] Last Admin: 08/06/16 10:38 Dose: 75 mg Insulin Human Regular 100 (units/ Sodium Chloride) 100 mls @ 9 mls/hr IV .Q11H7M PRN; Protocol; 9 UNITS/HR PRN Reason: TITRATE PER MD ORDER Last Titration: 08/06/16 11:45 Dose: 0 units/hr, 0 mls/hr Ceftriaxone Sodium (Rocephin 1 Gram Ivpb) 1 gm in 100 mls @ 100 mls/hr IVPB DAILY ERIKA PRN Reason: Protocol Last Admin: 08/06/16 10:36 Dose: 100 mls/hr Potassium Chloride 20 meq/ (Dextrose/Sodium Chloride) 1,010 mls @ 150 mls/hr IV .Q6H44M [facility] Last Admin: 08/06/16 06:17 Dose: 150 mls/hr Doxycycline Hyclate 100 mg/ (Sodium Chloride) 100 mls @ 100 mls/hr IVPB Q12 ERIKA PRN Reason: Protocol Last Admin: 08/06/16 11:14 Dose: 100 mls/hr Insulin Detemir (Levemir) 30 unit SC DAILY [facility] Last Admin: 08/06/16 10:37 Dose: 30 unit Insulin Human Regular (Humulin R Low) 0 units SC Q4H ERIKA PRN Reason: Protocol Last Admin: 08/06/16 12:45 Dose: 1 units Levothyroxine Sodium (Synthroid) 125 mcg PO DAILY [facility] Last Admin: 08/06/16 10:45 Dose: Not Given Losartan Potassium (Cozaar) 25 mg PO DAILY [facility] Last Admin: 08/06/16 10:45 Dose: 25 mg Non-Formulary Medication (Ezetimibe/Simvastatin [Vytorin 10-40 Mg Tablet]) 1 tab PO DAILY [facility] Last Admin: 08/06/16 10:00 Dose: Not Given Ondansetron HCl (Zofran Inj) 4 mg IVP Q4H PRN PRN Reason: Nausea/Vomiting Last Admin: 08/05/16 21:38 Dose: 4 mg Pantoprazole Sodium (Protonix Inj) 40 mg IVP DAILY [facility] Last Admin: 08/06/16 10:36 Dose: 40 mg Pregabalin (Lyrica) 75 mg PO HS [facility] Last Admin: 08/05/16 21:12 Dose: 75 mg Sertraline HCl (Zoloft) 50 mg PO HS [facility] Last Admin: 08/05/16 21:12 Dose: 50 mg Vitamin D (Vitamin D 400 Intl Units Tab) 400 intlu PO DAILY [facility] Last Admin: 08/06/16 10:41 Dose: 400 intlu - Labs Labs: 08/06/16 05:30 08/06/16 12:00 PT 10.7 Seconds (9.9-11.8) 08/05/16 11:35 INR 0.99 (0.93-1.08) 08/05/16 11:35 APTT 26.8 Seconds (23.7-30.8) 08/05/16 11:35 - Constitutional Appears: Well, Non-toxic, No Acute Distress, Other (Fatigued) - Head Exam Head Exam: ATRAUMATIC, NORMAL INSPECTION, NORMOCEPHALIC - Eye Exam Eye Exam: EOMI, Normal appearance. absent: Conjunctival injection, Scleral icterus Pupil Exam: absent: Irregular, Unequal - ENT Exam ENT Exam: Mucous Membranes Moist - Neck Exam Neck Exam: absent: Lymphadenopathy, Tenderness - Respiratory Exam Respiratory Exam: Rales (moderate crackles/rales along left lower lobe auscultory region, most prominent on posterior ausculation), NORMAL BREATHING PATTERN. absent: Accessory Muscle Use, Chest Wall Tenderness, Decreased Breath Sounds, Clear to Ausculation Bilateral, Prolonged Expiratory Phase, Wheezes, Respiratory Distress - Cardiovascular Exam Cardiovascular Exam: REGULAR RHYTHM, RRR, +S1, +S2. absent: Bradycardia, Tachycardia, Irregular Rhythm, +S4 - GI/Abdominal Exam GI & Abdominal Exam: Soft, Normal Bowel Sounds. absent: Distended, Firm, Rigid , Tenderness, Diminished Bowel Sounds, Hyperactive Bowel Sounds, Hypoactive Bowel Sounds - Extremities Exam Extremities Exam: Normal Capillary Refill, Normal Inspection. absent: Calf Tenderness, Joint Swelling, Pedal Edema, Tenderness - Back Exam Back Exam: NORMAL INSPECTION. absent: rash noted, tenderness Additional comments: scattered seborrheic keratoses along back - Neurological Exam Neurological Exam: Alert, Awake, Oriented x3 (self, location, year) Additional comments: somnolent during initial exam, fully awake and alert on repeat exam - Psychiatric Exam Psychiatric exam: Normal Affect, Normal Mood - Skin Skin Exam: Dry, Intact, Normal Color, Warm Additional comments: except for findings described in Back exam Assessment and Plan - Assessment and Plan (Free Text) Assessment: This is a 60 yo F with PMH of DM type 1, diabetic nephropathy, hypothyroidism, TIA, and anxiety who presented with DKA (sugars > 400, gap of 29 ). She is now transitioning off of Insulin drip in the ICU, and is being worked up for possible pneumonia. Plan: 1) DKA -2/2 to insulin non-compliance vs 2/2 infectious process (pneumonia) -gap closed overnight, transitioning from Insulin drip to long acting insulin coverage as per ICU and Endo -aggressive fluid rehydration, switched from NS 200cc/hr to D5 + 1/2 NS 150cc/ hr while transitioning from drip to scheduled insulin -fingersticks q1 -amylase/lipase negative, no further abdominal pain or emesis, so unlikely co- presenting pancreatitis -zofran prn for nausea -abd x ray negative -ua not indicative on infection -continue IV rocephin, adding Doxy (no Zithromax due to prolonged QTc) -Endo (Dr. Olguin) consulted, recs appreciated; appropriate to transition to scheduled insulin from drip, restart diet 2) AMELIE: resolved -Cr from 1.5 to 0.7 -likely prerenal -given aggressive fluid rehydration for DKA, NS 200cc/hr, now on D5 + 1/2 NS at 150cc/hr 3) Leukocytosis -worsened from 17.2 to 21.2 -Remains afebrile, hemodynamically stable -2/2 to DKA vs infectious etiology -UA not indicative of infection -Left lower lobe crackles on exam, CT chest w/o contrast ordered, f/u -Continue IV rocephin, due to prolonged QTc will add Doxy for empiric coverage instead of Zithromax 4) Hypothyroidism -TSH on admit 0.15, repeat TSH 0.08 -Synthroid decreased from 125 mcg daily to 100 mcg daily as per Dr. Olguin (Endo) 5) Hx TIA -continue home plavix -Neurologically intact on exam, gross motor in extremities intact 6) HTN -continue home losartan and coreg 7) HLD -continue simvastatin 8) Hx depression -denies depression or SI today -continue zoloft Dispo: ICU pending transition off insulin drip, pending CT chest w/o contrast to assess for possible pneumonia FEN: Transition to Consistent Carb diet from NPO, D5 1/2 NS 150cc/hr Access: Peripheral IV Consults: ICU, Endo Ppx: Protonix for GI, SCDs for DVT Patient seen and reviewed with attending, Dr. Truong.
--- NOTE | 2016-08-06 16:08 | CT ---
PROCEDURE: CT Chest without contrast HISTORY: left lower lobe crackles, r/o pneumonia COMPARISON: Comparison is made to the previous [facility] CT dated 10/05/2015 TECHNIQUE: Contiguous axial images were obtained through the chest without intravenous contrast enhancement. Sagittal and coronal reconstructions were performed. Radiation dose (DLP): 627.48 mGy-cm. This CT exam was performed using one or more of the following dose reduction techniques: Automated exposure control, adjustment of the mA and/or kV according to patient size, and/or use of iterative reconstruction technique. FINDINGS: LUNGS: Interval appearance of foci of airspace consolidation and thick reticular opacities at the posterior and lower portion of the lungs bilaterally slightly larger on the left since the previous exam. The differential diagnosis includes bilateral aspiration pneumonia/ multifocal pneumonia. The possibility of inflammatory disease such as sarcoidosis is less likely. Small opacities are also seen at the name goal and lower portion of the left lung upper lobe. MEDIASTINUM: Unremarkable thoracic aorta. No aneurysm. Normal sized heart. Main pulmonary artery is mildly enlarged. Mildly enlarged mediastinal lymph nodes are noted larger compared to the previous exam. Mild diffuse esophageal mucosal thickening seen. PLEURA: There are bilateral small pleural effusions larger on the left. BONES: No fracture. No destructive lesion. UPPER ABDOMEN: Grossly unremarkable. OTHER FINDINGS: None. IMPRESSION: Interval appearance of foci of airspace consolidation and thick reticular opacities at the posterior and lower portions of the lungs larger on the left since the previous exam. Findings may represent multifocal pneumonia/ aspiration pneumonia. Other etiology such as inflammatory lung disease/ pneumonitis is less likely. Small bilateral pleural effusions larger on the left. Mild mediastinal lymphadenopathy. Mildly enlarged main pulmonary artery. Mild diffuse esophageal mucosal thickening. Correlate clinically for gastroesophageal reflux/ esophagitis.
--- NOTE | 2016-08-06 16:49 | PN ---
DATE: 08/06/2016 ROOM: CCU 129, room 6 This is a 60-year-old female with recent uncontrolled type 1 insulin-dependent diabetes, presenting h ere with diabetic ketoacidosis and dehydration and received vigorous IV hydration and intensive insul in therapy with an insulin drip infusion as given and noted, and is being followed now for metabolic management. Her oral intake remains poor and variable at this time with persistent hypersomnolence a nd lethargy as noted. She actually was using a [employer] insulin pump for over 10 years with still v pratik suboptimal metabolic control and A1c was ranging from 10% to 12% and yet surprisingly has remaine d with very nil evidence of nephropathy or retinopathy and no obvious macrovascular complications wit h normal cardiac and peripheral vasculopathy workup so far. She also has nicotine dependence and smo kes 2 packs of cigarettes for almost 50 years until the present time. Her latest chemistries today s howed a BUN of 17, sodium 137, potassium 4.0, chloride 112, CO2 of 20, glucose 157, and creatinine 0. 7. So, at this time, she really has already resolving diabetic ketoacidosis and it would be very safe at this time to switch her over now from the insulin drip infusion to a more physiologic basal and bolu s insulin regimen as indicated. Concur with the order for Levemir given as 30 units at bedtime to st art today as ordered. After oral intake improves, then we will add also Humalog ranging from 6-10 un its before each meal as indicated. We will continue the vigorous IV hydration for full resolution of the glucose toxicity and also the acidosis as mentioned. We will obtain serial chemistries and supp lement accordingly as needed. We will also consult our nurse educator, Ms. Erika Kumari, who kno ws the patient very well, to reinforce imperative need for tighter metabolic control as noted. We wi ll also consider smoking cessation with the use of Chantix therapy and this will be given on the outp atient as noted. We will follow. Frances Olguin MD cc: [id number] TT: 08/06/2016 16:49:01 Confirmation # [id number] Dictation # [id number]
[2016-08-06] MEDS: Arformoterol 15 mcg/2 ml Inh Sol IH SCH (19:46)
[2016-08-06] MEDS: Budesonide 0.25 mg/2 ml Inhal Susp UD IH SCH (19:46)
[2016-08-06] MEDS ORDERED: Arformoterol 15 mcg/2 ml Inh Sol IH SCH (20:00)
[2016-08-07] MEDS: Albuterol-Ipratrop 3 mg / 0.5 (3 ml) UD IH SCH ×3 (02:01→21:40)
[2016-08-07] MEDS: Potassium Chloride 20 MEQ in Dextrose 5%/0.45% NS 1,000 ML IV SCH ×3 (06:00→23:07)
[2016-08-07] MEDS: Arformoterol 15 mcg/2 ml Inh Sol IH SCH ×2 (07:36→21:40)
[2016-08-07] MEDS: Budesonide 0.25 mg/2 ml Inhal Susp UD IH SCH ×2 (07:36→21:40)
[2016-08-07 07:39] LABS: ALB/GLOB RATIO 0.9 (1.1-1.8); ALKALINE PHOSPHATASE 88 U/L (38-133); ALT/SGPT 26 U/L (7-56); AST/SGOT 27 U/L (15-39); BILIRUBIN,TOTAL 0.2 mg/dL (0.2-1.3); BLOOD UREA NITROGEN 8 mg/dL (7-21); CALCIUM 7.8 mg/dL (8.4-10.5); CARBON DIOXIDE 23 mmol/L (21-33); CHLORIDE 108 mmol/L (98-107); CHOLESTEROL 102 mg/dL (130-200); GFR AFRICAN-AMERICAN > 60; GLUCOSE,RANDOM 150 mg/dL (70-110); POTASSIUM 4.2 mmol/L (3.6-5.0); SODIUM 137 mmol/L (132-148); TOTAL PROTEIN 6.4 g/dL (5.8-8.3)
[2016-08-07 07:52] LABS: ADD MANUAL DIFF? NO
[2016-08-07 07:54] LABS: T4 7.5 ug/dL (5.5-11.0)
[2016-08-07 08:01] LABS: BASO # 0.05 K/mm3 (0.0-2.0); BASO % 0.4 % (0.0-3.0); EOS # 0.1 (0.0-0.7); EOS % 0.7 % (1.5-5.0); GRAN # 9.77 (1.4-6.5); GRAN % 81.3 % (50.0-68.0); HEMATOCRIT 34.7 % (36.0-48.0); LYMPH # 1.4 (1.2-3.4); LYMPH % 11.4 % (22.0-35.0); MEAN CELL VOLUME 82.6 fL (80.0-105.0); MEAN CORPUSCULAR HEMOGLOBIN 26.9 pg (25.0-35.0); MEAN CORPUSCULAR HGB CONC 32.6 g/dl (31.0-37.0); MEAN PLATELET VOLUME 10.2 fl (7.0-11.0); MONO # 0.7 (0.1-0.6); MONO % 6.2 % (1.0-6.0); PLATELET COUNT 233 10^3/uL (120.0-450.0); RED CELL DISTRIBUTION WIDTH 14.7 % (11.5-14.5)
[2016-08-07 08:07] LABS: THYROID STIMULATING HORMONE 0.36 mIU/mL (0.46-4.68)
[2016-08-07] MEDS: Levothyroxine 100 MCG TAB PO SCH (08:25)
[2016-08-07] MEDS: Insulin Lispro (humaLOG) LOW Coverage SC SCH ×4 (08:30→22:09)
[2016-08-07] MEDS: Insulin Lispro 1 UNITS/0.01 ML SC SCH ×3 (08:32→17:29)
--- NOTE | 2016-08-07 09:27 | CP.PCM.PN ---
Subjective - Date & Time of Evaluation Date of Evaluation: 08/07/16 Time of Evaluation: 09:22 - Subjective Subjective: ICU Progress Note: Patient seen and examined at bedside. There were no acute overnight events. Patient reports having epigastric pain with nausea. She had a BM last night. She denies blood or dark stool. She denies CP, SOB, diarrhea, numbness/tingling , fever or chills. Objective - Vital Signs/Intake and Output Vital Signs (last 24 hours): Temp Pulse Resp BP Pulse Ox 98 F 91 H 26 H 164/83 H 91 L 08/07/16 04:00 08/07/16 07:00 08/07/16 07:00 08/07/16 05:00 08/07/16 07:00 Intake and Output: 08/07/16 08/07/16 06:59 18:59 Intake Total 2000 Output Total 700 Balance 1300 - Medications Medications: Current Medications Acetaminophen (Tylenol 325mg Tab) 650 mg PO Q6H PRN PRN Reason: Pain, Mild (1-3) Last Admin: 08/07/16 08:29 Dose: 650 mg Albuterol/Ipratropium (Duoneb 3 Mg/0.5 Mg (3 Ml) Ud) 3 ml IH Q2H PRN PRN Reason: Shortness of Breath Albuterol/Ipratropium (Duoneb 3 Mg/0.5 Mg (3 Ml) Ud) 3 ml IH [id number] [facility] Last Admin: 08/07/16 07:36 Dose: Not Given Arformoterol Tartrate (Brovana) 15 mcg IH [id number] [facility] Last Admin: 08/07/16 07:36 Dose: Not Given Budesonide (Pulmicort Respules) 0.25 mg IH [id number] [facility] Last Admin: 08/07/16 07:36 Dose: Not Given Carvedilol (Coreg) 3.125 mg PO BID [facility] Last Admin: 08/06/16 18:15 Dose: 3.125 mg Clopidogrel Bisulfate (Plavix) 75 mg PO DAILY [facility] Last Admin: 08/06/16 10:38 Dose: 75 mg Ceftriaxone Sodium (Rocephin 1 Gram Ivpb) 1 gm in 100 mls @ 100 mls/hr IVPB DAILY [facility] PRN Reason: Protocol Last Admin: 08/06/16 10:36 Dose: 100 mls/hr Potassium Chloride 20 meq/ (Dextrose/Sodium Chloride) 1,010 mls @ 150 mls/hr IV .Q6H44M [facility] Last Admin: 08/07/16 06:00 Dose: 150 mls/hr Doxycycline Hyclate 100 mg/ (Sodium Chloride) 100 mls @ 100 mls/hr IVPB Q12 [facility] PRN Reason: Protocol Last Admin: 08/06/16 22:10 Dose: 100 mls/hr Insulin Detemir (Levemir) 20 unit SC HS [facility] Insulin Human Lispro (Humalog Low) 0 units SC ACHS [facility] PRN Reason: Protocol Last Admin: 08/07/16 08:30 Dose: 1 units Insulin Human Lispro (Humalog) 4 units SC AC [facility] Last Admin: 08/07/16 08:32 Dose: 4 units Levothyroxine Sodium (Synthroid) 100 mcg PO ACB [facility] Last Admin: 08/07/16 08:25 Dose: Not Given Losartan Potassium (Cozaar) 25 mg PO DAILY [facility] Last Admin: 08/06/16 10:45 Dose: 25 mg Non-Formulary Medication (Ezetimibe/Simvastatin [Vytorin 10-40 Mg Tablet]) 1 tab PO DAILY [facility] Last Admin: 08/06/16 10:00 Dose: Not Given Ondansetron HCl (Zofran Inj) 4 mg IVP Q4H PRN PRN Reason: Nausea/Vomiting Last Admin: 08/07/16 05:30 Dose: 4 mg Pantoprazole Sodium (Protonix Inj) 40 mg IVP DAILY [facility] Last Admin: 08/06/16 10:36 Dose: 40 mg Pregabalin (Lyrica) 75 mg PO HS [facility] Last Admin: 08/06/16 22:44 Dose: 75 mg Sertraline HCl (Zoloft) 50 mg PO HS [facility] Last Admin: 08/06/16 21:13 Dose: 50 mg Vitamin D (Vitamin D 400 Intl Units Tab) 400 intlu PO DAILY [facility] Last Admin: 08/06/16 10:41 Dose: 400 intlu - Labs Labs: 08/07/16 05:00 08/07/16 06:30 PT 10.7 Seconds (9.9-11.8) 08/05/16 11:35 INR 0.99 (0.93-1.08) 08/05/16 11:35 APTT 26.8 Seconds (23.7-30.8) 08/05/16 11:35 - Constitutional Appears: No Acute Distress - Head Exam Head Exam: ATRAUMATIC, NORMAL INSPECTION, NORMOCEPHALIC - Eye Exam Eye Exam: Normal appearance, PERRL Pupil Exam: NORMAL ACCOMODATION, PERRL - ENT Exam ENT Exam: Mucous Membranes Moist - Neck Exam Neck Exam: Full ROM - Respiratory Exam Respiratory Exam: Clear to Ausculation Bilateral, NORMAL BREATHING PATTERN. absent: Rales, Rhonchi, Stridor - Cardiovascular Exam Cardiovascular Exam: REGULAR RHYTHM, +S1, +S2. absent: Gallop, Rubs, Murmur - GI/Abdominal Exam GI & Abdominal Exam: Soft, Tenderness (epigastric ), Normal Bowel Sounds - Extremities Exam Extremities Exam: Normal Inspection. absent: Calf Tenderness, Pedal Edema - Neurological Exam Neurological Exam: Alert, Awake, CN II-XII Intact, Oriented x3 - Psychiatric Exam Psychiatric exam: Normal Affect, Normal Mood - Skin Skin Exam: Dry, Intact, Normal Color, Warm Assessment and Plan - Assessment and Plan (Free Text) Assessment: This is a 60Y F with PMH uncontrolled DM type I, diabetic nephropathy, Hypothyroidism, HTN, HLD, insomnia, and anxiety here for DKA and leukocytosis secondary to pneumonia. Both of which have improved. Plan: Neuro: A&O x 3 Continue to maintain normothermia CV: HD stable Maintain MAP >65 Pulm: LLL pneumonia seen on chest CT Comfortable on room air Maintain SpO2>90% Continue Neb treatments GI: CCD - still poor intake Zofran prn nausea Monitor I&O Heme: Hgb stable- no signs of overt bleeding Continue to monitor CBC Nephro: AMELIE resolved Will monitor electrolytes as replace as indicated ID: Afebrile, leukocytosis trending down LLL Pneumonia on CT Rocephin and doxycycline Endo: DKA resolved- gap closed D5/0.45NS for poor intake Fingerstick ACHS- recs appreciated Endo consulted TSH low, synthroid adjusted as per endo GI ppx: Protonix DVT ppx: SCDs Dispo: Patient will be transferred as per primary. Case seen, discussed and reviewed with attending. Chaz Lange PGY1
[2016-08-07] MEDS: cefTRIAXone 1 gm 1 GM/100 ML BAG IVPB SCH (09:53)
[2016-08-07] MEDS: Non Formulary Medication (Ezetimibe/Simvastatin [Vytorin 10-40 Mg Tablet] 1 TAB) PO SCH (09:54)
[2016-08-07] MEDS: Cholecalciferol 400 Intl Units Tab PO SCH (09:56)
[2016-08-07] MEDS ORDERED: Levothyroxine 100 MCG TAB PO SCH (10:00)
[2016-08-07] MEDS ORDERED: Levothyroxine 125 MCG TAB PO SCH (10:00)
--- NOTE | 2016-08-07 10:42 | CP.PCM.PN ---
Subjective - Date & Time of Evaluation Date of Evaluation: 08/07/16 Time of Evaluation: 06:55 - Subjective Subjective: Internal Medicine Progress Note for Dr. Truong/Dr. [facility] Service Patient seen and examined at bedside in the ICU. Today is hospital day 3. No acute events overnight. Patient denies any further episodes of emesis.. Denies chest pain, shortness of breath, cough, focal weakness, fever/chills, dysuria, constipation, or diarrhea. Only complaints are poor sleep/fatigue, malaise, and a lack of appetite. Patient off insulin drip, stable sugars, sinus rhythm; cleared for transfer from ICU to remote telemetry. Objective - Vital Signs/Intake and Output Vital Signs (last 24 hours): Temp Pulse Resp BP Pulse Ox 98 F 87 26 H 155/85 H 91 L 08/07/16 04:00 08/07/16 09:56 08/07/16 07:00 08/07/16 09:56 08/07/16 07:00 Intake and Output: 08/07/16 08/07/16 06:59 18:59 Intake Total 2000 Output Total 700 Balance 1300 - Medications Medications: Current Medications Acetaminophen (Tylenol 325mg Tab) 650 mg PO Q6H PRN PRN Reason: Pain, Mild (1-3) Last Admin: 08/07/16 08:29 Dose: 650 mg Albuterol/Ipratropium (Duoneb 3 Mg/0.5 Mg (3 Ml) Ud) 3 ml IH Q2H PRN PRN Reason: Shortness of Breath Albuterol/Ipratropium (Duoneb 3 Mg/0.5 Mg (3 Ml) Ud) 3 ml IH [id number] [facility] Last Admin: 08/07/16 07:36 Dose: Not Given Arformoterol Tartrate (Brovana) 15 mcg IH [id number] [facility] Last Admin: 08/07/16 07:36 Dose: Not Given Budesonide (Pulmicort Respules) 0.25 mg IH [id number] [facility] Last Admin: 08/07/16 07:36 Dose: Not Given Carvedilol (Coreg) 3.125 mg PO BID [facility] Last Admin: 08/07/16 09:52 Dose: 3.125 mg Clopidogrel Bisulfate (Plavix) 75 mg PO DAILY [facility] Last Admin: 08/07/16 09:53 Dose: 75 mg Ceftriaxone Sodium (Rocephin 1 Gram Ivpb) 1 gm in 100 mls @ 100 mls/hr IVPB DAILY [facility] PRN Reason: Protocol Last Admin: 08/07/16 09:53 Dose: 100 mls/hr Potassium Chloride 20 meq/ (Dextrose/Sodium Chloride) 1,010 mls @ 150 mls/hr IV .Q6H44M [facility] Last Admin: 08/07/16 06:00 Dose: 150 mls/hr Doxycycline Hyclate 100 mg/ (Sodium Chloride) 100 mls @ 100 mls/hr IVPB Q12 [facility] PRN Reason: Protocol Last Admin: 08/07/16 09:49 Dose: 100 mls/hr Insulin Detemir (Levemir) 20 unit SC HS [facility] Insulin Human Lispro (Humalog Low) 0 units SC ACHS [facility] PRN Reason: Protocol Last Admin: 08/07/16 08:30 Dose: 1 units Insulin Human Lispro (Humalog) 4 units SC AC [facility] Last Admin: 08/07/16 08:32 Dose: 4 units Levothyroxine Sodium (Synthroid) 100 mcg PO ACB [facility] Last Admin: 08/07/16 08:25 Dose: Not Given Losartan Potassium (Cozaar) 25 mg PO DAILY [facility] Last Admin: 08/07/16 09:56 Dose: 25 mg Non-Formulary Medication (Ezetimibe/Simvastatin [Vytorin 10-40 Mg Tablet]) 1 tab PO DAILY [facility] Last Admin: 08/07/16 09:54 Dose: Not Given Ondansetron HCl (Zofran Inj) 4 mg IVP Q4H PRN PRN Reason: Nausea/Vomiting Last Admin: 08/07/16 05:30 Dose: 4 mg Pantoprazole Sodium (Protonix Inj) 40 mg IVP DAILY [facility] Last Admin: 08/07/16 09:53 Dose: 40 mg Pregabalin (Lyrica) 75 mg PO HS [facility] Last Admin: 08/06/16 22:44 Dose: 75 mg Sertraline HCl (Zoloft) 50 mg PO HS [facility] Last Admin: 08/06/16 21:13 Dose: 50 mg Vitamin D (Vitamin D 400 Intl Units Tab) 400 intlu PO DAILY [facility] Last Admin: 08/07/16 09:56 Dose: 400 intlu - Labs Labs: 08/07/16 05:00 06/20/17 06:30 PT 10.7 Seconds (9.9-11.8) 08/05/16 11:35 INR 0.99 (0.93-1.08) 08/05/16 11:35 APTT 26.8 Seconds (23.7-30.8) 08/05/16 11:35 - Additional Findings Additional findings: - Constitutional Appears: Well, Non-toxic, No Acute Distress, Other (Fatigued/Malaise) - Head Exam Head Exam: ATRAUMATIC, NORMAL INSPECTION, NORMOCEPHALIC - Eye Exam Eye Exam: EOMI, Normal appearance. absent: Conjunctival injection, Scleral icterus Pupil Exam: absent: Irregular, Unequal - ENT Exam ENT Exam: Mucous Membranes Moist - Neck Exam Neck Exam: absent: Lymphadenopathy, Tenderness - Respiratory Exam Respiratory Exam: Rales (moderate crackles/rales along left lower lobe auscultory region, most prominent on posterior ausculation, unchanged from yesterday), NORMAL BREATHING PATTERN. absent: Accessory Muscle Use, Chest Wall Tenderness, Decreased Breath Sounds, Clear to Ausculation Bilateral, Prolonged Expiratory Phase, Wheezes, Respiratory Distress - Cardiovascular Exam Cardiovascular Exam: REGULAR RHYTHM, RRR, +S1, +S2. absent: Bradycardia, Tachycardia, Irregular Rhythm, +S4 - GI/Abdominal Exam GI & Abdominal Exam: Soft, Normal Bowel Sounds. absent: Distended, Firm, Rigid , Tenderness, Diminished Bowel Sounds, Hyperactive Bowel Sounds, Hypoactive Bowel Sounds - Extremities Exam Extremities Exam: Normal Capillary Refill, Normal Inspection. absent: Calf Tenderness, Joint Swelling, Pedal Edema, Tenderness - Back Exam Back Exam: Scattered seborrheic keratoses along back. absent: rash noted, tenderness - Neurological Exam Neurological Exam: Fatigued but Awake and alert, following all commands, moving extremities spontaneously - Psychiatric Exam Psychiatric exam: Normal Affect, Normal Mood - Skin Skin Exam: Dry/Intact/Normal Color/Warm (except for findings described in Back exam) Assessment and Plan - Assessment and Plan (Free Text) Assessment: This is a 60 yo F with PMH of DM type 1, diabetic nephropathy, hypothyroidism, TIA, and anxiety who presented with DKA (sugars > 400, gap of 29 ). She is now off the insulin drip, and is being treated for left lower lobe pneumonia. She is pending transfer from ICU to remote telemetry. Plan: 1) DKA: Resolved -2/2 to insulin non-compliance vs 2/2 infectious process (pneumonia) -gap remains closed, Bicarb now at normal levels, continue scheduled insulin -aggressive fluid rehydration, continue D5 + 1/2 NS 150cc/hr -fingersticks q4 -amylase/lipase negative, no further abdominal pain or emesis, so unlikely co- presenting pancreatitis -zofran prn for nausea -abd x ray negative -ua not indicative on infection -continue IV rocephin, adding Doxy (no Zithromax due to prolonged QTc) -Endo (Dr. Olguin) consulted, recs appreciated; appropriate to transition to scheduled insulin from drip, restart diet 2) AMELIE: resolved -Cr from 1.5 to 0.7 -likely prerenal, given improvement on aggressive fluid rehydration regimen for DKA 3) Leukocytosis -improved from 21.2 to 12.0 -Remains afebrile, hemodynamically stable -2/2 to DKA vs infectious etiology; likely multifactorial as pneumonia found on Chest CT -UA not indicative of infection -Continue IV rocephin and doxycycline, no Zithromax due to prolonged QTc 4) Hypothyroidism -TSH on admit 0.15, repeat TSH 0.08 -Synthroid decreased from 125 mcg daily to 100 mcg daily as per Dr. Olguin (Endo) 5) Hx TIA -continue home plavix -Neurologically intact on exam, gross motor in extremities intact 6) HTN -continue home losartan and coreg 7) HLD -continue simvastatin 8) Hx depression -denies active depression today -continue zoloft Dispo: ICU pending transfer to remote telemetry, on IV abx and trying to encourage PO intake FEN: Transition to Consistent Carb diet from NPO, D5 1/2 NS 150cc/hr Access: Peripheral IV Consults: ICU, Endo Ppx: Protonix for GI, SCDs for DVT Patient seen, reviewed, and discussed with attending, Dr. Truong.
[2016-08-07 11:59] LABS: CORTISOL AM 27.4 ug/dL (4.46-22.7)
--- NOTE | 2016-08-07 12:09 | CON ---
DATE: 08/07/2016 REASON FOR CONSULTATION: Pneumonia. REFERRING PHYSICIAN: Dr. Jagdish Truong. History is obtained via extensive discussion with the night nurse. I have also reviewed the chart at length, and discussed the case with the patient at length. HISTORY OF PRESENT ILLNESS: The patient is a 60-year-old female, with past medical history significant for hypertension, insulin-dependent diabetes mellitus, cerebrovascular accident (on Plavix), hypothyroidism, probable chronic obstructive pulmonary disease, positive heavy smoker, who presented to [facility] on 08/05/2016 -- with main complaints of nausea, vomiting and weakness, progressive over the previous 2 days. As per history, the patient was also not eating for the previous 2 days -- prior to admission. In the Emergency Room, the patient was noted to be in diabetic ketoacidosis. She was thus admitted for additional evaluation. Again, I did discuss the case with the patient and nurse at length. There is no history of shortness of breath at rest or dyspnea on exertion. There is a history of coughing, which the patient states is not new for her. There is no history of sputum production. There is no history of chest pain, coughing up of blood or chest pain -- made worse with deep respirations. There is no history of temperatures, chills or infectious exposure. There is no history of night sweats, weight loss or appetite change prior to the above events. No history of leg or calf pains. No history of syncope or diaphoresis. No history of recent travel or trauma. REVIEW OF SYSTEMS: No acute urinary symptoms. No new musculoskeletal complaints. The rest of the review of systems is negative. ALLERGIES: No known allergies. SOCIAL HISTORY: Positive for extensive tobacco usage. No alcohol. FAMILY HISTORY: No inheritable diseases. HOME MEDICATIONS: Include insulin, Xanax, Restoril, Lyrica, Vytorin, Cozaar, Synthroid, Pepcid, Plavix, carvedilol. PHYSICAL EXAMINATION: GENERAL: The patient appears comfortable at rest. She is not short of breath. VITAL SIGNS: Temperature is 98.0, pulse on the monitor is 88, respiratory rate 16, blood pressure 130/60. Oxygen saturation on nasal cannula is 95%. HEENT: Normocephalic, atraumatic. NECK: No JVD. CARDIOVASCULAR: Positive S1, S2. No S3. LUNGS: Crackles left base. Minimal bilateral rhonchi. No wheezing. EXTREMITIES: Mild edema. No cyanosis, no clubbing. Calves are nontender to palpation. GASTROINTESTINAL: Abdomen is soft, nontender, nondistended. Bowel sounds are positive. SKIN: No acute rash. NEUROLOGIC: Limited at the present time. PERTINENT LABORATORY DATA: CAT scan of the chest was done yesterday and reviewed. There is a left lower lobe infiltrate seen. There are also very small bilateral pleural effusions noted. CBC: White count 21.1, hemoglobin 10.9, hematocrit 33.0, platelets of 299. Complete metabolic profile: Chloride 112, carbon dioxide 20, anion gap 9, glucose 157. Calcium 7.3. The rest of the metabolic profile is within normal limits. Procalcitonin is very slightly elevated at 0.60. IMPRESSION: 1. Diabetic ketoacidosis with nausea and vomiting. 2. Left lower lobe pneumonia -- possible aspiration. 3. Probable chronic obstructive pulmonary disease. 4. Mild anemia. PLAN: Again, I did discuss the case with the night nurse and medical science liaison at length. The patient presented to [facility] -- originally on -- with a 2-day history of nausea and vomiting, as well as anorexia. In the Emergency Room, the patient was found to be in diabetic ketoacidosis -- and thus admitted. In addition to the above, the patient does complain of a cough -- which she states is not new for her. I did review the CAT scan of the chest -- as above. The CAT scan of the chest reveals left lower lobe infiltrates with very small bilateral pleural effusions. The patient has been pancultured. The patient also has been placed on appropriate antibiotic therapy. There are no temperatures noted. Repeat a.m. labs are pending. On physical exam, there is no significant bronchospasm noted. I will continue with the current nebulizer treatments and inhaled steroids for now. Again, the patient does have an extensive smoking history. Input by endocrine (Dr. Olguin) is also noted. The patient does state to feeling much better this morning -- compared to the past few days. She is clinically improved. I will also order a repeat chest x-ray -- for tomorrow -- for comparison. Additional pulmonary intervention will be based on the clinical status of the patient, as well as the above results. I will discuss the above with the entire ICU team in the next few moments. I will discuss the above with Dr. Truong later this morning. Thank you very much for this pulmonary consultation. Joseph Antonio MD cc: [phone] TT: 08/07/2016 12:08:28 Confirmation # [id number] Dictation # [id number] amber BARCLAY
--- NOTE | 2016-08-07 15:56 | PN ---
DATE: 08/07/2016 ROOM: 375 This is a 60-year-old female with recent uncontrolled type 1 insulin-dependent diabetes, now being fo llowed closely for metabolic management. She presented here with diabetic ketoacidosis with concomit ant intractable vomiting episodes and supervening dehydration with spurious hyponatremia and marked h yperglycemic accelerations with glucose levels over 800 mg/dL. She received vigorous IV hydration an d intensive insulin therapy in the hospital with remarkable recovery overnight as noted. Her latest chemistries showed a BUN of 8, sodium 137, potassium 4.2, chloride 108, CO2 23, glucose 15 0 and creatinine 0.6. Her glucose levels have ranged from 106-188 mg/dL. So at this time, will continue the same basal and bolus insulin regimen to allow for dose equilibrati on as her oral intake remains variable and suboptimal at this time. Will keep her on the Humalog giv en as 4 units subQ t.i.d. before meals and Levemir given as 20 units subQ at bedtime daily as ordered . Will continue the low-dose correction scale using Humalog insulin as given to obviate hypoglycemia , and detailed orders have been given. Just to add to the laboratories: Her chemistries showed a BUN of 8, sodium 137, potassium 4.2, chlor amie 108, CO2 23, glucose is 150 and creatinine is 0.6. Her latest thyroid studies showed a T4 of 7.5 with a TSH of 0.36 and a serum cortisol level of 27.4. So at this time, we will continue the same levothyroxine given at 100 mcg daily as ordered to allow f or full dose equilibration. Will obtain serial chemistries and supplement accordingly as needed. Wi ll also reinforce diabetic education and dietary instructions at the time of this admission and will consult our nurse educator, Ms. Erika Kumari, regarding the aforementioned. Will follow. Frances Olguin MD cc: [id number] TT: 08/07/2016 15:55:37 Confirmation # [id number] Dictation # [id number] mn
[2016-08-07] MEDS ORDERED: Insulin Detemir 100 units/ml Vial (Levemir) SC SCH (22:00)
[2016-08-08] MEDS: Albuterol-Ipratrop 3 mg / 0.5 (3 ml) UD IH SCH ×4 (02:00→19:39)
[2016-08-08] MEDS: Potassium Chloride 20 MEQ in Dextrose 5%/0.45% NS 1,000 ML IV SCH ×2 (06:07→16:22)
[2016-08-08] MEDS: Arformoterol 15 mcg/2 ml Inh Sol IH SCH ×2 (07:48→19:39)
[2016-08-08] MEDS: Budesonide 0.25 mg/2 ml Inhal Susp UD IH SCH ×2 (07:48→19:39)
[2016-08-08 08:10] LABS: ALKALINE PHOSPHATASE 98 U/L (38-133); ALT/SGPT 30 U/L (7-56); AST/SGOT 37 U/L (15-39); BILIRUBIN,TOTAL 0.4 mg/dL (0.2-1.3); BLOOD UREA NITROGEN 5 mg/dL (7-21); CARBON DIOXIDE 26 mmol/L (21-33); CHLORIDE 103 mmol/L (95-110); GFR AFRICAN-AMERICAN > 60; GLUCOSE,RANDOM 149 mg/dL (70-110); SODIUM 135 mmol/L (132-148); TOTAL PROTEIN 6.3 g/dL (5.8-8.3)
[2016-08-08] MEDS: Insulin Lispro (humaLOG) LOW Coverage SC SCH ×4 (08:34→22:02)
[2016-08-08] MEDS: Insulin Lispro 1 UNITS/0.01 ML SC SCH ×3 (08:34→17:30)
[2016-08-08] MEDS: Levothyroxine 100 MCG TAB PO SCH (08:34)
--- NOTE | 2016-08-08 08:49 | PN ---
DATE: 08/08/2016 SUBJECTIVE: The patient appears very comfortable this morning. She is not short of breath at rest. PHYSICAL EXAMINATION: VITAL SIGNS: Temperature is 97.2, pulse is 78, respirations 18, last blood pressure recorded 147/75. Oxygen saturation on nasal cannula is 94%. HEENT: Normocephalic, atraumatic. No JVD. CARDIOVASCULAR: Positive S1, S2. No S3. LUNGS: Less crackles-- left base. Less rhonchi. No wheezing. EXTREMITIES: Mild edema. No cyanosis, no clubbing. Calves are nontender to palpation. GASTROINTESTINAL: Abdomen is soft, nontender, nondistended. Bowel sounds are positive. SKIN: No acute rash. NEUROLOGIC: Limited at the present time. IMPRESSION: 1. Diabetic ketoacidosis with nausea and vomiting. 2. Left lower lobe pneumonia -- possible aspiration. 3. Probable chronic obstructive pulmonary disease. 4. Mild anemia. PLAN: The patient appears very comfortable this morning. She is not short of breath at rest. She states she is feeling much better overall. On physical exam, there is less bronchospasm noted. I will continue with the current nebulizer treatments and inhaled steroids for now. I would continue with the current antibiotic therapy for now. There are no temperatures noted. The leukocytosis has almost completely resolved. Repeat a.m. labs are pending. I would continue with the endocrine evaluation. Input by Dr. Olguin is noted. Clinical status of the patient is significantly improved -- compared to the initial presentation. I have advised the patient to be out of bed as much as possible. I will discuss the above with Dr. Truong. Joseph Antonio MD cc: [id number] TT: 08/08/2016 08:49:21 Confirmation # [id number] Dictation # [id number] en [email or web address]
[2016-08-08] MEDS: Cholecalciferol 400 Intl Units Tab PO SCH (09:14)
[2016-08-08] MEDS: cefTRIAXone 1 gm 1 GM/100 ML BAG IVPB SCH (09:14)
[2016-08-08 09:51] LABS: ADD MANUAL DIFF? NO
[2016-08-08] MEDS: Non Formulary Medication (Ezetimibe/Simvastatin [Vytorin 10-40 Mg Tablet] 1 TAB) PO SCH (10:00)
[2016-08-08 10:01] LABS: BASO # 0.07 K/mm3 (0.0-2.0); BASO % 0.7 % (0.0-3.0); EOS # 0.1 (0.0-0.7); EOS % 1.2 % (1.5-5.0); GRAN # 7.61 (1.4-6.5); GRAN % 74.1 % (50.0-68.0); HEMATOCRIT 32.9 % (36.0-48.0); LYMPH # 1.4 (1.2-3.4); LYMPH % 13.9 % (22.0-35.0); MEAN CELL VOLUME 82.3 fL (80.0-105.0); MEAN CORPUSCULAR HEMOGLOBIN 26.8 pg (25.0-35.0); MEAN CORPUSCULAR HGB CONC 32.5 g/dl (31.0-37.0); MEAN PLATELET VOLUME 11.1 fl (7.0-11.0); MONO % 10.1 % (1.0-6.0); PLATELET COUNT 236 10^3/uL (120.0-450.0); RED CELL DISTRIBUTION WIDTH 14.6 % (11.5-14.5); WHITE BLOOD COUNT 10.3 10^3/ul (4.5-11.0)
--- NOTE | 2016-08-08 10:29 | RAD ---
HISTORY: follow up COMPARISON: 08/05/2016 FINDINGS: LUNGS: There is worsening pulmonary venous congestion and development of pulmonary redistribution. There is confluent airspace disease in the left lower lobe. PLEURA: Suspect small pleural effusions. No pneumothorax apparent. CARDIOVASCULAR: Normal. OSSEOUS STRUCTURES: No significant abnormalities. VISUALIZED UPPER ABDOMEN: Normal. OTHER FINDINGS: None. IMPRESSION: 1. Worsening pulmonary venous congestion and development of pulmonary redistribution with suspected small pleural effusions could represent mild congestive heart failure. 2. Confluent airspace disease in the left lower lobe could represent subsegmental atelectasis however pneumonia cannot be excluded. Follow-up is advised.
[2016-08-08] MEDS ORDERED: RESTORIL 30 MG PO PRN (10:35)
--- NOTE | 2016-08-08 11:34 | CP.PCM.PN ---
Subjective - Date & Time of Evaluation Date of Evaluation: 08/08/16 Time of Evaluation: 07:45 - Subjective Subjective: Internal Medicine Progress Note for Dr. Truong/Dr. Mayfield Service Patient seen and examined at bedside on the floors. Today is hospital day 4. No acute events overnight. No further episodes of emesis, denies chest pain, nausea, shortness of breath, cough/productive cough. Still has poor appetite and malaise. Minimal sleep with ambien, will have family bring home restoril ( 30mg) for use here to sleep. Objective - Vital Signs/Intake and Output Vital Signs (last 24 hours): Temp Pulse Resp BP Pulse Ox 98.2 F 79 20 139/73 94 L 08/08/16 06:00 08/08/16 06:00 08/08/16 06:00 08/08/16 09:14 08/08/16 06:00 Intake and Output: 08/08/16 08/08/16 06:59 18:59 Intake Total 2180 Output Total 650 Balance 1530 - Medications Medications: Current Medications Acetaminophen (Tylenol 325mg Tab) 650 mg PO Q6H PRN PRN Reason: Pain, Mild (1-3) Last Admin: 08/08/16 05:06 Dose: 650 mg Albuterol/Ipratropium (Duoneb 3 Mg/0.5 Mg (3 Ml) Ud) 3 ml IH Q2H PRN PRN Reason: Shortness of Breath Albuterol/Ipratropium (Duoneb 3 Mg/0.5 Mg (3 Ml) Ud) 3 ml IH [id number] [facility] Last Admin: 08/08/16 07:48 Dose: Not Given Arformoterol Tartrate (Brovana) 15 mcg IH [id number] [facility] Last Admin: 08/08/16 07:48 Dose: Not Given Budesonide (Pulmicort Respules) 0.25 mg IH [id number] [facility] Last Admin: 08/08/16 07:48 Dose: Not Given Carvedilol (Coreg) 3.125 mg PO BID [facility] Last Admin: 08/08/16 09:14 Dose: 3.125 mg Clopidogrel Bisulfate (Plavix) 75 mg PO DAILY [facility] Last Admin: 08/08/16 09:14 Dose: 75 mg Home Med (Home Med) 1 unit PO HS PRN PRN Reason: Sleep Ceftriaxone Sodium (Rocephin 1 Gram Ivpb) 1 gm in 100 mls @ 100 mls/hr IVPB DAILY ERIKA PRN Reason: Protocol Last Admin: 08/08/16 09:14 Dose: 100 mls/hr Potassium Chloride 20 meq/ (Dextrose/Sodium Chloride) 1,010 mls @ 150 mls/hr IV .[id number] [facility] Last Admin: 08/08/16 06:07 Dose: 150 mls/hr Doxycycline Hyclate 100 mg/ (Sodium Chloride) 100 mls @ 100 mls/hr IVPB Q12 ERIKA PRN Reason: Protocol Last Admin: 08/08/16 10:17 Dose: 100 mls/hr Insulin Detemir (Levemir) 20 unit SC HS [facility] Last Admin: 08/07/16 21:52 Dose: 20 unit Insulin Human Lispro (Humalog Low) 0 units SC ACHS ERIKA PRN Reason: Protocol Last Admin: 08/08/16 08:34 Dose: Not Given Insulin Human Lispro (Humalog) 4 units SC AC [facility] Last Admin: 08/08/16 08:34 Dose: 4 units Levothyroxine Sodium (Synthroid) 100 mcg PO ACB [facility] Last Admin: 08/08/16 08:34 Dose: 100 mcg Losartan Potassium (Cozaar) 25 mg PO DAILY [facility] Last Admin: 08/08/16 09:14 Dose: 25 mg Non-Formulary Medication (Ezetimibe/Simvastatin [Vytorin 10-40 Mg Tablet]) 1 tab PO DAILY [facility] Last Admin: 08/07/16 09:54 Dose: Not Given Ondansetron HCl (Zofran Inj) 4 mg IVP Q4H PRN PRN Reason: Nausea/Vomiting Last Admin: 08/08/16 06:06 Dose: 4 mg Pantoprazole Sodium (Protonix Inj) 40 mg IVP DAILY [facility] Last Admin: 08/08/16 09:15 Dose: 40 mg Pregabalin (Lyrica) 75 mg PO HS [facility] Last Admin: 08/07/16 22:54 Dose: Not Given Sertraline HCl (Zoloft) 50 mg PO HS [facility] Last Admin: 08/07/16 21:52 Dose: 50 mg Vitamin D (Vitamin D 400 Intl Units Tab) 400 intlu PO DAILY [facility] Last Admin: 08/08/16 09:14 Dose: 400 intlu - Labs Labs: 08/08/16 07:00 08/08/16 06:50 PT 10.7 Seconds (9.9-11.8) 08/05/16 11:35 INR 0.99 (0.93-1.08) 08/05/16 11:35 APTT 26.8 Seconds (23.7-30.8) 08/05/16 11:35 - Additional Findings Additional findings: - Constitutional Appears: Well, Non-toxic, No Acute Distress, Other (Fatigued/Malaise, but improved over prior days) - Head Exam Head Exam: ATRAUMATIC, NORMAL INSPECTION, NORMOCEPHALIC - Eye Exam Eye Exam: EOMI, Normal appearance. absent: Conjunctival injection, Scleral icterus Pupil Exam: absent: Irregular, Unequal - ENT Exam ENT Exam: Mucous Membranes Moist - Neck Exam Neck Exam: absent: Lymphadenopathy, Tenderness - Respiratory Exam Respiratory Exam: Rales (faint crackles/rales along left lower lobe auscultory region, most prominent on posterior ausculation, reduced from yesterday), NORMAL BREATHING PATTERN. absent: Accessory Muscle Use, Chest Wall Tenderness, Decreased Breath Sounds, Clear to Ausculation Bilateral, Prolonged Expiratory Phase, Wheezes, Respiratory Distress - Cardiovascular Exam Cardiovascular Exam: REGULAR RHYTHM, RRR, +S1, +S2. absent: Bradycardia, Tachycardia, Irregular Rhythm, +S4 - GI/Abdominal Exam GI & Abdominal Exam: Soft, Normal Bowel Sounds. absent: Distended, Firm, Rigid , Tenderness, Diminished Bowel Sounds, Hyperactive Bowel Sounds, Hypoactive Bowel Sounds - Extremities Exam Extremities Exam: Normal Capillary Refill, Normal Inspection. absent: Calf Tenderness, Joint Swelling, Pedal Edema, Tenderness - Back Exam Back Exam: Scattered seborrheic keratoses along back. absent: rash noted, tenderness - Neurological Exam Neurological Exam: Fatigued but Awake and alert (less fatigued compared to prior days), following all commands, moving extremities spontaneously - Psychiatric Exam Psychiatric exam: Normal Affect, Normal Mood - Skin Skin Exam: Dry/Intact/Normal Color/Warm (except for findings described in Back exam) Assessment and Plan - Assessment and Plan (Free Text) Assessment: This is a 60 yo F with PMH of DM type 1, diabetic nephropathy, hypothyroidism, TIA, and anxiety who presented with DKA (sugars > 400, gap of 29 ). She is now in remote telemetry, being treated for likely LLL pneumonia with IV abx and receiving IVF until she can reliably tolerate PO intake. Plan: 1) DKA: Resolved -2/2 to insulin non-compliance vs 2/2 infectious process (pneumonia) -gap remains closed, Bicarb now at normal levels, continue scheduled insulin -aggressive fluid rehydration, continue D5 + 1/2 NS 150cc/hr -fingersticks q4 -amylase/lipase negative, no further abdominal pain or emesis, so unlikely co- presenting pancreatitis -zofran prn for nausea -abd x ray negative -ua not indicative on infection -continue IV rocephin, adding Doxy (no Zithromax due to prolonged QTc) -Endo (Dr. Olguin) consulted, recs appreciated; appropriate to transition to scheduled insulin from drip, restart diet 2) AMELIE: resolved -Cr from 1.5 to 0.7 -likely prerenal, given improvement on aggressive fluid rehydration regimen for DKA 3) Leukocytosis: Improved -improved from 12.0 to 10.3 -Remains afebrile, hemodynamically stable -2/2 to DKA vs infectious etiology; likely multifactorial as pneumonia found on Chest CT -UA not indicative of infection -Continue IV rocephin (day 4) and doxycycline (day 3), no Zithromax due to prolonged QTc; will attempt to transition to oral abx after tolerating PO reliably 4) Poor PO intake -switched to full liquid-consistent carb diet -PT walked patient, had OOB to chair, will have nursing get OOB to chair for meals -Advance diet as tolerated 5) Hypothyroidism -TSH on admit 0.15, repeat TSH 0.08 -Synthroid 100 mcg daily as per Dr. Olguin (Endo) 6) Hx TIA -continue home plavix -Neurologically intact on exam, gross motor in extremities intact 7) HTN -continue home losartan and coreg 8) HLD -continue simvastatin 9) Hx depression -denies active depression today -continue zoloft Dispo: Remote telemetry, on IV abx and trying to encourage PO intake, will transition to PO abx and discharge when reliably able to tolerate PO FEN: Full liquid consistent carb, D5 + 1/2 NS 150cc/hr Access: Peripheral IV Consults: ICU, Endo Ppx: Protonix for GI, SCDs for DVT Patient seen, reviewed, and discussed with attending, Dr. Mayfield
--- NOTE | 2016-08-08 15:02 | PN ---
DATE: 08/08/2016 ROOM: 375. SUBJECTIVE: This is a 60-year-old female with recent uncontrolled type 1 insulin-dependent diabetes, presenting here with marked hyperglycemic accelerations and supervening diabetic ketoacidosis and de hydration and has since then improved clinically and metabolically as noted thereof. However, she co ntinues to have very poor and suboptimal meal portions as noted. Today, she barely ate her breakfast and was given the usual insulin regimen with supervening hypoglycemic episode at noon time today as noted. Her latest glucose values have ranged from 56-151 to 211 mg/dL. Her latest chemistries showe d a BUN of 5, sodium 135, potassium 4.0, chloride 103, CO2 26, glucose 149 and creatinine 0.5. So at this time, we will modify her basal and bolus insulin regimen and lower the Levemir to 20 units subQ at bedtime daily to start tonight. We will continue the low-dose correction scale using Humalog ins ulin as given and continue the much lower dose of the prandial insulin with Humalog to be given as 6- 8 units t.i.d. depending on the variability of her oral intake. We will obtain a hemoglobin A1c to c onfirm her prior poor glycemic control and baseline thyroid functions already have been ordered. We will obtain serial chemistries and supplement accordingly as needed. We will follow. Frances Olguin MD cc: [id number] TT: 08/08/2016 15:02:01 Confirmation # [id number] Dictation # [id number] coral
[2016-08-08] MEDS ORDERED: Insulin Detemir 100 units/ml Vial (Levemir) SC SCH (22:00)
[2016-08-08] MEDS: RESTORIL 30 MG PO PRN (22:02)
[2016-08-08] MEDS: Insulin Detemir 100 units/ml Vial (Levemir) SC SCH ×2 (22:05→22:25)
[2016-08-09] MEDS: Albuterol-Ipratrop 3 mg / 0.5 (3 ml) UD IH SCH ×4 (02:22→21:08)
[2016-08-09] MEDS: Potassium Chloride 20 MEQ in Dextrose 5%/0.45% NS 1,000 ML IV SCH ×2 (02:45→09:20)
[2016-08-09 07:14] LABS: ADD MANUAL DIFF? NO
[2016-08-09 07:36] LABS: BASO # 0.04 K/mm3 (0.0-2.0); BASO % 0.5 % (0.0-3.0); EOS # 0.2 (0.0-0.7); EOS % 2.7 % (1.5-5.0); GRAN % 66.6 % (50.0-68.0); HEMATOCRIT 32.9 % (36.0-48.0); LYMPH # 1.6 (1.2-3.4); LYMPH % 20.6 % (22.0-35.0); MEAN CELL VOLUME 81.8 fL (80.0-105.0); MEAN CORPUSCULAR HEMOGLOBIN 26.6 pg (25.0-35.0); MEAN CORPUSCULAR HGB CONC 32.5 g/dl (31.0-37.0); MEAN PLATELET VOLUME 10.7 fl (7.0-11.0); MONO # 0.7 (0.1-0.6); MONO % 9.6 % (1.0-6.0); PLATELET COUNT 236 10^3/uL (120.0-450.0); RED CELL DISTRIBUTION WIDTH 14.4 % (11.5-14.5); WHITE BLOOD COUNT 7.7 10^3/ul (4.5-11.0)
[2016-08-09 07:44] LABS: ALB/GLOB RATIO 0.9 (1.1-1.8); ALKALINE PHOSPHATASE 114 U/L (38-133); ALT/SGPT 43 U/L (7-56); AST/SGOT 56 U/L (15-39); BILIRUBIN,TOTAL 0.4 mg/dL (0.2-1.3); BLOOD UREA NITROGEN 4 mg/dL (7-21); CALCIUM 8.3 mg/dL (8.4-10.5); CARBON DIOXIDE 27 mmol/L (21-33); CHLORIDE 101 mmol/L (98-107); GFR AFRICAN-AMERICAN > 60; GLUCOSE,RANDOM 193 mg/dL (70-110); POTASSIUM 4.2 mmol/L (3.6-5.0); SODIUM 133 mmol/L (132-148); TOTAL PROTEIN 6.4 g/dL (5.8-8.3)
[2016-08-09] MEDS: Insulin Lispro (humaLOG) LOW Coverage SC SCH ×4 (08:30→21:22)
[2016-08-09] MEDS: Insulin Lispro 1 UNITS/0.01 ML SC SCH ×3 (08:37→17:15)
[2016-08-09] MEDS: Arformoterol 15 mcg/2 ml Inh Sol IH SCH ×2 (08:37→21:08)
[2016-08-09] MEDS: Budesonide 0.25 mg/2 ml Inhal Susp UD IH SCH ×2 (08:37→21:08)
[2016-08-09] MEDS: Levothyroxine 100 MCG TAB PO SCH (08:37)
[2016-08-09] MEDS: Cholecalciferol 400 Intl Units Tab PO SCH (09:11)
[2016-08-09] MEDS: cefTRIAXone 1 gm 1 GM/100 ML BAG IVPB SCH (09:12)
[2016-08-09] MEDS: Non Formulary Medication (Ezetimibe/Simvastatin [Vytorin 10-40 Mg Tablet] 1 TAB) PO SCH (10:42)
[2016-08-09] MEDS ORDERED: SIMVASTATIN PO SCH ×2 (13:49→13:52)
[2016-08-09] MEDS ORDERED: EZETIMIBE PO SCH ×2 (13:49→13:52)
--- NOTE | 2016-08-09 14:26 | CP.PCM.PN ---
Subjective - Date & Time of Evaluation Date of Evaluation: 08/09/16 Time of Evaluation: 07:40 - Subjective Subjective: Internal Medicine Progress Note for Dr. Truong/Dr. Mayfield Service Patient seen and examined at bedside on the floors. Today is hospital day 5. No acute events overnight. No further episodes of emesis, denies chest pain, nausea, shortness of breath, cough/productive cough. Slept well overnight with home Restoril. Improved appetite, asking to be increased from full liquids to regular food diet. Ambulating without issue. Objective - Vital Signs/Intake and Output Vital Signs (last 24 hours): Temp Pulse Resp BP Pulse Ox 98.5 F 85 19 160/72 H 94 L 08/09/16 08:59 08/09/16 08:59 08/09/16 08:59 08/09/16 09:12 08/09/16 08:59 Intake and Output: 08/09/16 08/09/16 06:59 18:59 Intake Total 2880 Output Total 1000 Balance 1880 - Medications Medications: Current Medications Acetaminophen (Tylenol 325mg Tab) 650 mg PO Q6H PRN PRN Reason: Pain, Mild (1-3) Last Admin: 08/08/16 05:06 Dose: 650 mg Albuterol/Ipratropium (Duoneb 3 Mg/0.5 Mg (3 Ml) Ud) 3 ml IH Q2H PRN PRN Reason: Shortness of Breath Albuterol/Ipratropium (Duoneb 3 Mg/0.5 Mg (3 Ml) Ud) 3 ml IH [id number] [facility] Last Admin: 08/09/16 14:18 Dose: Not Given Arformoterol Tartrate (Brovana) 15 mcg IH [id number] [facility] Last Admin: 08/09/16 08:37 Dose: Not Given Budesonide (Pulmicort Respules) 0.25 mg IH [id number] [facility] Last Admin: 08/09/16 08:37 Dose: Not Given Carvedilol (Coreg) 3.125 mg PO BID [facility] Last Admin: 08/09/16 09:12 Dose: 3.125 mg Clopidogrel Bisulfate (Plavix) 75 mg PO DAILY [facility] Last Admin: 08/09/16 09:11 Dose: 75 mg Home Med (Home Med) 1 unit PO HS PRN PRN Reason: Sleep Last Admin: 08/08/16 22:02 Dose: 1 unit Ceftriaxone Sodium (Rocephin 1 Gram Ivpb) 1 gm in 100 mls @ 100 mls/hr IVPB DAILY ERIKA PRN Reason: Protocol Last Admin: 08/09/16 09:12 Dose: 100 mls/hr Doxycycline Hyclate 100 mg/ (Sodium Chloride) 100 mls @ 100 mls/hr IVPB Q12 ERIKA PRN Reason: Protocol Last Admin: 08/09/16 10:42 Dose: 100 mls/hr Insulin Detemir (Levemir) 14 unit SC HS [facility] Insulin Human Lispro (Humalog Low) 0 units SC ACHS [facility] PRN Reason: Protocol Last Admin: 08/09/16 12:15 Dose: Not Given Insulin Human Lispro (Humalog) 4 units SC AC [facility] Levothyroxine Sodium (Synthroid) 100 mcg PO ACB [facility] Last Admin: 08/09/16 08:37 Dose: 100 mcg Losartan Potassium (Cozaar) 25 mg PO DAILY [facility] Last Admin: 08/09/16 09:11 Dose: 25 mg Ezetimibe/Simvastatin [Vytorin 10-40 Mg Tablet] ( Home) 1 tab PO DAILY [facility] Ondansetron HCl (Zofran Inj) 4 mg IVP Q4H PRN PRN Reason: Nausea/Vomiting Last Admin: 08/09/16 09:12 Dose: 4 mg Pantoprazole Sodium (Protonix Inj) 40 mg IVP DAILY [facility] Last Admin: 08/09/16 09:12 Dose: 40 mg Pregabalin (Lyrica) 75 mg PO HS [facility] Last Admin: 08/08/16 22:03 Dose: Not Given Sertraline HCl (Zoloft) 50 mg PO HS [facility] Last Admin: 08/08/16 22:04 Dose: Not Given Vitamin D (Vitamin D 400 Intl Units Tab) 400 intlu PO DAILY [facility] Last Admin: 08/09/16 09:11 Dose: 400 intlu - Labs Labs: 08/09/16 07:00 08/09/16 07:00 PT 10.7 Seconds (9.9-11.8) 08/05/16 11:35 INR 0.99 (0.93-1.08) 08/05/16 11:35 APTT 26.8 Seconds (23.7-30.8) 08/05/16 11:35 - Additional Findings Additional findings: - Constitutional Appears: Well, Non-toxic, No Acute Distress - Head Exam Head Exam: ATRAUMATIC, NORMAL INSPECTION, NORMOCEPHALIC - Eye Exam Eye Exam: EOMI, Normal appearance. absent: Conjunctival injection, Scleral icterus Pupil Exam: absent: Irregular, Unequal - ENT Exam ENT Exam: Mucous Membranes Moist - Neck Exam Neck Exam: absent: Lymphadenopathy, Tenderness - Respiratory Exam Respiratory Exam: CTAB, NORMAL BREATHING PATTERN. absent: Accessory Muscle Use , Chest Wall Tenderness, Decreased Breath Sounds, Prolonged Expiratory Phase, Wheezes, Respiratory Distress - Cardiovascular Exam Cardiovascular Exam: REGULAR RHYTHM, RRR, +S1, +S2. absent: Bradycardia, Tachycardia, Irregular Rhythm, +S4 - GI/Abdominal Exam GI & Abdominal Exam: Soft, Normal Bowel Sounds. absent: Distended, Firm, Rigid , Tenderness, Diminished Bowel Sounds, Hyperactive Bowel Sounds, Hypoactive Bowel Sounds - Extremities Exam Extremities Exam: Normal Capillary Refill, Normal Inspection. absent: Calf Tenderness, Joint Swelling, Pedal Edema, Tenderness - Back Exam Back Exam: Scattered seborrheic keratoses along back. absent: rash noted, tenderness - Neurological Exam Neurological Exam: Awake and alert, following all commands, moving extremities spontaneously - Psychiatric Exam Psychiatric exam: Normal Affect, Normal Mood - Skin Skin Exam: Dry/Intact/Normal Color/Warm (except for findings described in Back exam) Assessment and Plan - Assessment and Plan (Free Text) Assessment: This is a 60 yo F with PMH of DM type 1, diabetic nephropathy, hypothyroidism, TIA, and anxiety who presented with DKA (sugars > 400, gap of 29 ). DKA resolved, diet advanced to Consistent Carb, pending transition from IV abx to PO abx. Plan: 1) DKA: Resolved -2/2 to insulin non-compliance vs 2/2 infectious process (pneumonia) -gap remains closed, Bicarb now at normal levels, continue scheduled insulin -aggressive fluid rehydration, continue D5 + 1/2 NS 150cc/hr -fingersticks q4 -amylase/lipase negative, no further abdominal pain or emesis, so unlikely co- presenting pancreatitis -zofran prn for nausea -abd x ray negative -ua not indicative on infection -continue IV rocephin, adding Doxy (no Zithromax due to prolonged QTc) -Endo (Dr. Olguin) consulted, recs appreciated; now on Levemir 14u HS, Lispro 4u with meals, and Low-ISS for additional coverage 2) AMELIE: resolved -Cr 0.5 today -likely prerenal, given improvement on aggressive fluid rehydration regimen for DKA 3) Leukocytosis: Resolved -WBCs 7.7 today -Remains afebrile, hemodynamically stable -2/2 to DKA vs infectious etiology; likely multifactorial as pneumonia found on Chest CT -UA not indicative of infection -Converting from IV Rocephin/Doxy to PO Doxy 100mg PO BID and Levaquin 500mg PO daily 4) Poor PO intake -OOB to chair for meals -Diet advanced to consistent carb, will f/u to see how tolerated 5) Hypothyroidism -TSH on admit 0.15, repeat TSH 0.08 -Synthroid 100 mcg daily as per Dr. Olguin (Endo) 6) Hx TIA -continue home plavix -Neurologically intact on exam, gross motor in extremities intact 7) HTN -continue home losartan and coreg 8) HLD -continue simvastatin 9) Hx depression -denies active depression today -continue zoloft Dispo: Remote telemetry, pending transition to PO abx and discharge FEN: Consistent Carb Access: Peripheral IV Consults: ICU, Endo Ppx: Protonix for GI, SCDs for DVT Patient seen, reviewed, and discussed with attending, Dr. Truong.
[2016-08-09 17:06] VITALS: O2SAT 96
--- NOTE | 2016-08-09 20:29 | PN ---
DATE: 08/09/2016 ROOM: 375. This is a 60-year-old female with recent uncontrolled type 1 insulin-dependent diabetes, presenting h ere with diabetic ketoacidosis and dehydration and now has improved clinically and metabolically afte r receiving intensive insulin therapy and vigorous IV hydration as noted. Her oral intake, however, remains quite variable and suboptimal at this time and has just been advanced on liquid diet to solid food overnight. Her latest chemistry showed a BUN of 4, sodium 133, potassium 4.2, chloride 101, CO 2 27, glucose 193 and creatinine 0.5. Her glucose values have ranged from 190-209 mg/dL. So at this time, we will modify once again her basal and bolus insulin regimen and increase the Humalog to 4 un its subQ t.i.d. before meals to start today as ordered. We will also increase and titrate her basal insulin with Levemir to be given as 14 units subQ at bedtime daily as given. We will titrate increme ntally as indicated to optimize metabolic control. We will follow. Frances Olguin MD cc: [id number] TT: 08/09/2016 20:27:40 Confirmation # [id number] Dictation # [id number] coral
[2016-08-09] MEDS: RESTORIL 30 MG PO PRN (21:42)
[2016-08-09] MEDS ORDERED: Insulin Detemir 100 units/ml Vial (Levemir) SC SCH (22:00)
[2016-08-10] MEDS: Albuterol-Ipratrop 3 mg / 0.5 (3 ml) UD IH SCH ×3 (01:56→13:29)
[2016-08-10 07:32] LABS: ADD MANUAL DIFF? NO
[2016-08-10 07:37] LABS: BASO # 0.06 K/mm3 (0.0-2.0); BASO % 0.8 % (0.0-3.0); EOS # 0.4 (0.0-0.7); EOS % 4.8 % (1.5-5.0); GRAN # 4.15 (1.4-6.5); GRAN % 54.2 % (50.0-68.0); HEMATOCRIT 35.2 % (36.0-48.0); LYMPH # 2.1 (1.2-3.4); MEAN CELL VOLUME 81.1 fL (80.0-105.0); MEAN CORPUSCULAR HGB CONC 32.1 g/dl (31.0-37.0); MEAN PLATELET VOLUME 10.2 fl (7.0-11.0); MONO % 13.2 % (1.0-6.0); PLATELET COUNT 281 10^3/uL (120.0-450.0); RED CELL DISTRIBUTION WIDTH 14.1 % (11.5-14.5); WHITE BLOOD COUNT 7.7 10^3/ul (4.5-11.0)
[2016-08-10 07:56] LABS: BLOOD UREA NITROGEN 7 mg/dL (7-21); CALCIUM 8.7 mg/dL (8.4-10.5); CARBON DIOXIDE 30 mmol/L (21-33); CHLORIDE 99 mmol/L (95-110); GFR AFRICAN-AMERICAN > 60; GLUCOSE,RANDOM 166 mg/dL (70-110); MAGNESIUM 1.7 mg/dL (1.7-2.2); POTASSIUM 3.8 mmol/L (3.6-5.0); SODIUM 135 mmol/L (132-148)
[2016-08-10] MEDS: Arformoterol 15 mcg/2 ml Inh Sol IH SCH (07:56)
[2016-08-10] MEDS: Budesonide 0.25 mg/2 ml Inhal Susp UD IH SCH (07:57)
[2016-08-10] MEDS: Insulin Lispro (humaLOG) LOW Coverage SC SCH ×2 (08:21→12:29)
[2016-08-10 09:29] VITALS: BP 141/72; PULSE 72; TEMP 98.3
[2016-08-10] MEDS: Insulin Lispro 1 UNITS/0.01 ML SC SCH ×2 (09:31→12:55)
[2016-08-10] MEDS: Levothyroxine 100 MCG TAB PO SCH (09:33)
[2016-08-10] MEDS: Cholecalciferol 400 Intl Units Tab PO SCH (09:33)
[2016-08-10] MEDS ORDERED: levoFLOXacin 500 MG TAB PO SCH (10:00)
[2016-08-10 11:25] VITALS: RESP 18
[2016-08-10] MEDS ORDERED: Insulin Lispro (humaLOG) LOW Coverage SC ONE (12:38)
--- NOTE | 2016-08-10 13:14 | PN ---
DATE: 08/10/2016 ROOM: 375 This is a 60-year-old female with recent uncontrolled type 1 insulin-dependent diabetes, presenting h ere with diabetic ketoacidosis and dehydration and has since then improved clinically and metabolical ly as noted thereof. Her oral intake remains variable and suboptimal at this time as noted. Her latest glucose values have ranged from 133-167 mg/dL. It was 330 at bedtime last night because silke soto held the dinnertime Humalog, which should not be since her glucose was 84 and being a type 1 diab etic, will certainly have hyperglycemic accelerations as expected. Her latest chemistry showed a BUN of 7, sodium 135, potassium 3.8, chloride 99, CO2 30, glucose 166 and creatinine 0.6. So at this time, we will clear her for discharge today and recommend a higher dosing after oral intak e improves thereof. Would recommend a combination of Levemir given as 20 units subQ at bedtime daily as ordered. Would also recommend Humalog given at the higher dose of 6 units subQ t.i.d. before shelbie ls as given. We will titrate incrementally as indicated to optimize metabolic control. We will also continue the levothyroxine given at the lower dose of 100 mcg daily as ordered. We will see the amari sujatha within a month post discharge to review her glucose readings and optimize her metabolic control. A lengthy discussion was undertaken with the patient regarding the need to go back on the [employer] insulin pump, which will give her continuous basal and bolus insulin dosing as expected and this rachel l also optimize her metabolic control otherwise. We will follow. Frances Olguin MD cc: [id number] TT: 08/10/2016 13:13:40 Confirmation # [id number] Dictation # [id number] en
--- NOTE | 2016-08-10 18:29 | CP.PCM.DIS ---
Provider - Provider Date of Admission: 08/05/16 12:24 Attending physician: Jagdish Truong MD Primary care physician: Dr. Truong Consults: Pulm: Paco Endo: Sharif Time Spent in preparation of Discharge (in minutes): 45 Diagnosis - Discharge Diagnosis (1) DKA (diabetic ketoacidoses) Status: Resolved Priority: High (2) Pneumonia Status: Acute Priority: Medium (3) Nausea & vomiting Status: Resolved Priority: Low Hospital Course - Lab Results Lab Results: Micro Results 08/05/16 15:00 Urine,Random Urine Culture - Final 50-100,000 CFU/ML. MULTIPLE SPECIES. SUGGEST REPEAT SPECIMEM. 08/05/16 15:00 Nose MRSA Culture (Admit) - Final MRSA NOT DETECTED Most Recent Lab Values WBC 7.7 10^3/ul (4.5-11.0) 08/10/16 07:00 RBC 4.34 10^6/uL (3.5-6.1) 08/10/16 07:00 Hgb 11.3 gm/dL (12.0-16.0) L 08/10/16 07:00 Hct 35.2 % (36.0-48.0) L 08/10/16 07:00 MCV 81.1 fL (80.0-105.0) 08/10/16 07:00 MCH 26.0 pg (25.0-35.0) 08/10/16 07:00 MCHC 32.1 g/dl (31.0-37.0) 08/10/16 07:00 RDW 14.1 % (11.5-14.5) 08/10/16 07:00 Plt Count 281 10^3/uL (120.0-450.0) 08/10/16 07:00 MPV 10.2 fl (7.0-11.0) 08/10/16 07:00 Gran % 54.2 % (50.0-68.0) 08/10/16 07:00 Lymph % (Auto) 27.0 % (22.0-35.0) 08/10/16 07:00 [place] % (Auto) 13.2 % (1.0-6.0) H 08/10/16 07:00 Eos % (Auto) 4.8 % (1.5-5.0) 08/10/16 07:00 Baso % (Auto) 0.8 % (0.0-3.0) 08/10/16 07:00 Gran # 4.15 (1.4-6.5) 08/10/16 07:00 Lymph # 2.1 (1.2-3.4) 08/10/16 07:00 [place] # 1.0 (0.1-0.6) H 08/10/16 07:00 Eos # 0.4 (0.0-0.7) 08/10/16 07:00 Baso # 0.06 K/mm3 (0.0-2.0) 08/10/16 07:00 PT 10.7 Seconds (9.9-11.8) 08/05/16 11:35 INR 0.99 (0.93-1.08) 08/05/16 11:35 APTT 26.8 Seconds (23.7-30.8) 08/05/16 11:35 pO2 58 mm/Hg (30-55) H 08/06/16 00:20 VBG pH 7.24 (7.32-7.43) L 08/06/16 00:20 VBG pCO2 42.0 (40-60) 08/06/16 00:20 VBG HCO3 18.0 mmol/l (21-28) L 08/06/16 00:20 VBG Total CO2 19.3 mmol.L (22-28) L 08/06/16 00:20 VBG O2 Sat (Calc) 93.2 % (40-65) H 08/06/16 00:20 VBG Base Excess -9.0 mmol/L (0.0-2.0) L 08/06/16 00:20 VBG Potassium 4.3 mmol/L (3.6-5.2) 08/06/16 00:20 Sodium 140.0 mmol/L (132-148) 08/06/16 00:20 Chloride 114.0 mmol/L (98-107) H 08/06/16 00:20 Glucose 134 mg/dl (65-105) H 08/06/16 00:20 Lactate 0.9 mmol/L (0.7-2.1) 08/06/16 00:20 FiO2 21.0 % 08/06/16 00:20 Sodium 135 mmol/L (132-148) 08/10/16 07:00 Potassium 3.8 mmol/L (3.6-5.0) 08/10/16 07:00 Chloride 99 mmol/L (95-110) 08/10/16 07:00 Carbon Dioxide 30 mmol/L (21-33) 08/10/16 07:00 Anion Gap 10 (10-20) 08/10/16 07:00 BUN 7 mg/dL (7-21) 08/10/16 07:00 Creatinine 0.6 mg/dL (0.5-1.4) 08/10/16 07:00 Est GFR ( Amer) > 60 08/10/16 07:00 Est GFR (Non-Af Amer) > 60 08/10/16 07:00 POC Glucose (mg/dL) 133 mg/dL (65-110) H 08/10/16 11:10 Random Glucose 166 mg/dL (70-110) H 08/10/16 07:00 Hemoglobin A1c 10.4 % (4.2-6.5) H 08/06/16 05:30 Lactic Acid 1.7 mmol/L (0.7-2.1) 08/05/16 15:15 Calcium 8.7 mg/dL (8.4-10.5) 08/10/16 07:00 Phosphorus 4.0 mg/dL (2.5-4.5) 08/10/16 07:00 Magnesium 1.7 mg/dL (1.7-2.2) 08/10/16 07:00 Total Bilirubin 0.4 mg/dL (0.2-1.3) 08/09/16 07:00 AST 56 U/L (15-39) H 08/09/16 07:00 ALT 43 U/L (7-56) 08/09/16 07:00 Alkaline Phosphatase 114 U/L (38-133) 08/09/16 07:00 Troponin I < 0.01 ng/mL 08/05/16 11:35 NT-Pro-B Natriuret Pep 243 pg/mL (0-450) 08/05/16 11:35 Total Protein 6.4 g/dL (5.8-8.3) 08/09/16 07:00 Albumin 3.0 g/dL (3.0-4.8) 08/09/16 07:00 Globulin 3.3 gm/dL 08/09/16 07:00 Albumin/Globulin Ratio 0.9 (1.1-1.8) L 08/09/16 07:00 Triglycerides 120 mg/dL (35-160) 08/07/16 06:30 Cholesterol 102 mg/dL (130-200) L 08/07/16 06:30 LDL Cholesterol Direct 50 mg/dL (0-129) 08/07/16 06:30 HDL Cholesterol 34 mg/dL (29-60) 08/07/16 06:30 Amylase 48 U/L (35-125) 08/05/16 12:47 Lipase 55 U/L (23-300) 08/05/16 12:47 Procalcitonin 0.60 NG/ML (0.19-0.49) H 08/06/16 12:00 Thyroxine (T4) 7.5 ug/dL (5.5-11.0) 08/07/16 06:30 TSH 3rd Generation 0.36 mIU/mL (0.46-4.68) L 08/07/16 06:30 Cortisol AM Sample 27.4 ug/dL (4.46-22.7) H 08/07/16 06:30 Venous Blood Potassium 4.3 mmol/L (3.6-5.2) 08/06/16 00:20 Urine Color Yellow (YELLOW) 08/05/16 15:00 Urine Appearance Clear (CLEAR) 08/05/16 15:00 Urine pH 5.5 (4.7-8.0) 08/05/16 15:00 Ur Specific [place] >= 1.030 (1.005-1.035) 08/05/16 15:00 Urine Protein Negative mg/dL (<30 mg/dL) 08/05/16 15:00 Urine Glucose (UA) >=1000 mg/dL (NEGATIVE) 08/05/16 15:00 Urine Ketones 15 mg/dL (NEGATIVE) H 08/05/16 15:00 Urine Blood Negative (NEGATIVE) 08/05/16 15:00 Urine Nitrate Negative (NEGATIVE) 08/05/16 15:00 Urine Bilirubin Moderate (NEGATIVE) H 08/05/16 15:00 Urine Urobilinogen 0.2 E.U./dL (<1 E.U./dL) 08/05/16 15:00 Ur Leukocyte Esterase Negative Jesus/uL (NEGATIVE) 08/05/16 15:00 Alcohol, Quantitative < 10 mg/dL (0-10) 08/05/16 15:15 - Hospital Course Hospital Course: This is a 60 yo F with PMH of DM type 1, diabetic nephropathy, hypothyroidism, TIA, and anxiety who presented with DKA (sugars > 400, gap of 29 ). While here, the patient was also found to have a left lower lobe pneumonia and was found to be hyperthyroid on labs. Patient was additionally seen by Endocrine and Pulm while inpatient. As per Endo, patient should be discharged on 20 units of Levemir nightly, 6 units of Lispro with meals, and 100mcg daily of synthroid (decreased from home dose of 125mcg daily). Patient will likely need to be restarted on her insulin pump as per Endo, and was instructed to follow up with Endo in 1 month as an outpatient. As per Pulm, likely COPD component as well as pneumonia given smoking history. Smoking cessation again recommended, and patient was instructed to finish a course of antibiotics (5- days each of Doxycycline 100mg PO daily and Levaquin 500mg PO daily, total 10- day course of dual antibiotic therapy). Scripts were electronically transmitted down to in-house pharmacy, to be given to patient on discharge. She was instructed to also follow up with her PMD (Dr. Truong) within 1 week. She expressed understanding and agreement with these instructions. All questions were answered to her satisfaction. Patient was then discharged. Patient seen, reviewed, and discussed with attending, Dr. Mayfield. Discharge Exam - Head Exam Head Exam: ATRAUMATIC, NORMAL INSPECTION, NORMOCEPHALIC - Additional Findings Additional findings: - Constitutional Appears: Well, Non-toxic, No Acute Distress - Head Exam Head Exam: ATRAUMATIC, NORMAL INSPECTION, NORMOCEPHALIC - Eye Exam Eye Exam: EOMI, Normal appearance. absent: Conjunctival injection, Scleral icterus Pupil Exam: absent: Irregular, Unequal - ENT Exam ENT Exam: Mucous Membranes Moist - Neck Exam Neck Exam: absent: Lymphadenopathy, Tenderness - Respiratory Exam Respiratory Exam: CTAB, NORMAL BREATHING PATTERN. absent: Accessory Muscle Use , Chest Wall Tenderness, Decreased Breath Sounds, Prolonged Expiratory Phase, Wheezes, Respiratory Distress - Cardiovascular Exam Cardiovascular Exam: REGULAR RHYTHM, RRR, +S1, +S2. absent: Bradycardia, Tachycardia, Irregular Rhythm, +S4 - GI/Abdominal Exam GI & Abdominal Exam: Soft, Normal Bowel Sounds. absent: Distended, Firm, Rigid , Tenderness, Diminished Bowel Sounds, Hyperactive Bowel Sounds, Hypoactive Bowel Sounds - Extremities Exam Extremities Exam: Normal Capillary Refill, Normal Inspection. absent: Calf Tenderness, Joint Swelling, Pedal Edema, Tenderness - Back Exam Back Exam: Scattered seborrheic keratoses along back. absent: rash noted, tenderness - Neurological Exam Neurological Exam: Awake and alert, following all commands, moving extremities spontaneously, Gait normal - Psychiatric Exam Psychiatric exam: Normal Affect, Normal Mood - Skin Skin Exam: Dry/Intact/Normal Color/Warm (except for findings described in Back exam) Discharge Plan - Discharge Medications Prescriptions: Doxycycline Hyclate 100 mg PO DAILY #5 cap levoFLOXacin [Levaquin] 500 mg PO DAILY #5 tab Levothyroxine [Synthroid] 100 mcg PO ACB #30 tab - Follow Up Plan Condition: SERIOUS Disposition: HOME/ ROUTINE Instructions: How to Check Your Blood Sugar (DC), Diabetic Ketoacidosis (DC), Acute Nausea and Vomiting (DC), Community Acquired Pneumonia (DC), Bacterial Pneumonia (DC), Pneumonia (DC) Additional Instructions: Please take all medications as prescribed. Please stop taking your old dose of Synthroid (125mcg/day) and take the new reduced dose (100mcg/day) Your new insulin regimen, as per Dr. Olguin, is 20 units of Levermir at night and 6 units of Lispro with meals. Please follow up with Dr. Truong within 1 week of discharge. Please follow up with Dr. Olguin within 1 month. Please check your blood sugars regularly every day, and take your insulin as prescribed. Make sure not to miss doses. If you experience worsening nausea, vomiting, inability to eat, or any other concerning symptoms, please return to the hospital immediately. Referrals: Frances Olguin MD [Medical Doctor] - (Follow up in 1 month) Jagdish Truong MD [Family Provider] - (Follow up within 1 week of discharge)
== END 2016-08-10 14:27 | disposition home or self-care (01) | DRG 637 ==
LOC: ED 11:06 → ERH 12:24 → CCU 14:00 → 3RSO 08-07 15:30
PROVIDERS: ADMIT Internal Medicine; ATTEND Internal Medicine
DX: E10.10 Type 1 diabetes mellitus with ketoacidosis without coma (principal); J18.9 Pneumonia, unspecified organism; J44.0 Chronic obstructive pulmonary disease with (acute) lower respiratory infection; N17.9 Acute kidney failure, unspecified; E86.0 Dehydration; E87.1 Hypo-osmolality and hyponatremia; E10.21 Type 1 diabetes mellitus with diabetic nephropathy; E10.319 Type 1 diabetes mellitus with unspecified diabetic retinopathy without macular edema; E87.5 Hyperkalemia; I10 Essential (primary) hypertension; E78.5 Hyperlipidemia, unspecified; E03.9 Hypothyroidism, unspecified; F17.210 Nicotine dependence, cigarettes, uncomplicated; F32.9 Major depressive disorder, single episode, unspecified; G47.00 Insomnia, unspecified; F41.9 Anxiety disorder, unspecified; D64.9 Anemia, unspecified; Z86.73 Personal history of transient ischemic attack (TIA), and cerebral infarction without residual deficits; Z91.14 Patient's other noncompliance with medication regimen

== ENCOUNTER 2017-03-29 07:09 | Day surgery (SDC) | payer BC ==
[2017-03-19 09:18] VITALS: BMI 33.1
[2017-03-29 07:42] VITALS: TEMP 97.7
[2017-03-29] MEDS ORDERED: Lidocaine 2% Inj (20ml) ONE (08:49)
[2017-03-29] MEDS ORDERED: Propofol 10 mg/ml Inj (20 ML) ONE ×2 (08:49→09:39)
[2017-03-29] MEDS ORDERED: Sodium Chloride 0.9% 1,000 ML IV SCH (10:15)
[2017-03-29 11:17] VITALS: BP 110/59; PULSE 67; RESP 16; O2SAT 97
== END 2017-03-29 12:04 | disposition home or self-care (01) ==
LOC: ENDO 07:09
PROVIDERS: ATTEND Internal Medicine Gastroenterology
DX: D12.4 Benign neoplasm of descending colon (principal); D12.5 Benign neoplasm of sigmoid colon; K62.1 Rectal polyp; D17.5 Benign lipomatous neoplasm of intra-abdominal organs; K29.50 Unspecified chronic gastritis without bleeding; K44.9 Diaphragmatic hernia without obstruction or gangrene; K21.9 Gastro-esophageal reflux disease without esophagitis; K64.8 Other hemorrhoids
CPT/HCPCS: 43239; 45380; 45381; 45385; 82948; 88305; 88312; 88342; J2704; J7040 ×2

== ENCOUNTER 2017-07-09 07:17 | Day surgery (SDC) | payer BC ==
[2017-03-19 09:18] VITALS: BMI 33.1
[2017-07-09 08:06] LABS: INR 1.04 (0.93-1.08); PARTIAL THROMBOPLASTIN TIME 32.8 Seconds (25.1-36.5)
[2017-07-09] MEDS ORDERED: Lidocaine 1% Inj (20ml) ONE (09:13)
[2017-07-09] MEDS ORDERED: Propofol 10 mg/ml Inj (20 ML) ONE ×4 (09:13→10:18)
[2017-07-09] MEDS ORDERED: ePHEDrine 50 mg/ml Inj ONE (09:29)
[2017-07-09] MEDS ORDERED: Sodium Chloride 0.9% 1,000 ML IV SCH (10:45)
[2017-07-09] MEDS ORDERED: Insulin Regular 100 units/ml ONE (11:26)
[2017-07-09 11:43] VITALS: RESP 18; TEMP 97.6
[2017-07-09 13:48] VITALS: BP 118/54; PULSE 93; O2SAT 93
== END 2017-07-09 12:52 | disposition home or self-care (01) ==
LOC: ENDO 07:17
PROVIDERS: ATTEND Internal Medicine Gastroenterology
DX: D12.2 Benign neoplasm of ascending colon (principal); D12.4 Benign neoplasm of descending colon; K63.5 Polyp of colon; K57.30 Diverticulosis of large intestine without perforation or abscess without bleeding; K64.8 Other hemorrhoids; E11.9 Type 2 diabetes mellitus without complications; I10 Essential (primary) hypertension; E78.5 Hyperlipidemia, unspecified; Z79.4 Long term (current) use of insulin
CPT/HCPCS: 36415; 45381; 45385; 82948; 85610; 85730; 88305; J2405; J2704; J3010; J7040 ×2

== ENCOUNTER 2017-10-11 07:22 | Day surgery (SDC) | payer BC ==
[2017-09-27 12:13] VITALS: BMI 32.8
[2017-10-11 08:09] VITALS: O2SAT 93
[2017-10-11] MEDS ORDERED: Propofol 10 mg/ml Inj (20 ML) ONE (09:41)
[2017-10-11] MEDS ORDERED: Lactated Ringer's 1,000 ML IV SCH (10:00)
[2017-10-11 11:07] VITALS: RESP 18
[2017-10-11 12:29] VITALS: BP 111/60; PULSE 92; TEMP 97.5
== END 2017-10-11 14:04 | disposition home or self-care (01) ==
LOC: ENDO 07:22
PROVIDERS: ATTEND Internal Medicine Gastroenterology
DX: K25.9 Gastric ulcer, unspecified as acute or chronic, without hemorrhage or perforation (principal); K26.9 Duodenal ulcer, unspecified as acute or chronic, without hemorrhage or perforation; K29.50 Unspecified chronic gastritis without bleeding; K20.9 Esophagitis, unspecified; D12.5 Benign neoplasm of sigmoid colon; D12.2 Benign neoplasm of ascending colon; K63.5 Polyp of colon; K64.4 Residual hemorrhoidal skin tags; K64.8 Other hemorrhoids; E10.319 Type 1 diabetes mellitus with unspecified diabetic retinopathy without macular edema; E10.36 Type 1 diabetes mellitus with diabetic cataract; E10.40 Type 1 diabetes mellitus with diabetic neuropathy, unspecified; Z96.41 Presence of insulin pump (external) (internal)
CPT/HCPCS: 43239; 45385; 82948; 88305; 88312; 88342; J2001; J2405; J2704; J3010; J7040; J7120

== ENCOUNTER 2018-01-03 07:33 | Day surgery (SDC) | payer BC ==
[2017-03-19 09:18] VITALS: BMI 33.1
[2018-01-03] MEDS ORDERED: Propofol 10 mg/ml Inj (20 ML) ONE (09:06)
[2018-01-03] MEDS ORDERED: Sodium Chloride 0.9% 1,000 ML IV SCH (09:45)
[2018-01-03 11:11] VITALS: BP 111/67; PULSE 76; RESP 16; TEMP 97.6; O2SAT 97
== END 2018-01-03 10:59 | disposition home or self-care (01) ==
LOC: ENDO 07:33
PROVIDERS: ATTEND Internal Medicine Gastroenterology
DX: D17.5 Benign lipomatous neoplasm of intra-abdominal organs (principal); K29.50 Unspecified chronic gastritis without bleeding; K44.9 Diaphragmatic hernia without obstruction or gangrene; K31.9 Disease of stomach and duodenum, unspecified; K21.0 Gastro-esophageal reflux disease with esophagitis; I10 Essential (primary) hypertension; E11.9 Type 2 diabetes mellitus without complications; Z96.41 Presence of insulin pump (external) (internal); Z79.4 Long term (current) use of insulin